=== PATIENT | female | born 1935 | race Caucasian/White ===

== ENCOUNTER 2022-04-04 22:53 | Emergency (ER) | payer MEDICARE, OTHER, SELFPAY ==
[2022-04-04 23:02] VITALS: BP 191/91; PULSE 65; RESP 16; TEMP 36.4; O2SAT 97; BMI 16.0
--- NOTE | 2022-04-04 23:03 | ED_ITS ---
HPI - Fall General Chief Complaint: General Medical Stated Complaint: fall Time Seen by Provider: 04/04/22 23:03 Source: patient and EMS Mode of arrival: EMS Limitations: altered mental status History of Present Illness HPI Narrative: Patient with history of dementia wandering outside lying on the side of the road living at the traffic EMS brought the patient to the ER no signs of injuries Related Data Allergies Allergy/AdvReac Type Severity Reaction Status Date / Time Penicillins [PENICILLINS] Allergy Mild RASH Unverified 11/24/19 15:08 Review of Systems Review of Systems: Yes Unobtainable due to mental status [facility] Social History Social History Advance Directives: No Advance Directives Information Provided: Yes Physical Exam Vital Signs: Vital Signs: Last Vital Signs Temp 98.7 F 04/05/22 01:40 Pulse 54 04/05/22 01:40 Resp 16 04/05/22 01:40 BP 119/62 04/05/22 01:40 Pulse Ox 97 04/05/22 01:40 O2 Del Method 04/05/22 01:40 BMI result Body Mass Index 16.0 Appearance: Alert. and awake No acute distress. Dementia Eyes: PERRLA, No Nystagmus ENT: Pharynx normal. Oral Mucosa moist Neck: Normal inspection. Neck supple. CVS: Normal heart rate and rhythm. Pulses normal. Respiratory: No respiratory distress. Equal air entry bilateral, no wheezing/rales/rhonchi Abdomen: Soft and nontender. Bowel sounds are present, no mass palpable, no CVA tenderness Skin: Skin warm and dry. Normal skin color. Normal skin turgor. Extremities: No lower extremity edema. No calf tenderness pelvis stable Neuro: Alert and awake dementia+ No motor deficit. No sensory deficit.No cerebellar signs , cranial nerves II-XII intact Medical Decision Making Medical Decision Making MDM Narrative: Patient dementia with wandering discussed with the family will be coming to take the patient home patient says social support at home and will be managed at home by the family patient labs were stable Lab Data [facility] Lab Attestation statement: I reviewed the patient's lab results. 04/04/22 23:28 04/04/22 23:28 Labs: Lab Results 01/27/23 01/27/23 01/27/23 Range/Units 23:28 23:28 23:28 WBC 7.5 (4.8-10.8) X10*3/uL RBC 4.89 (4.20-5.50) X10*6/uL Hgb 15.2 (12.0-16.0) g/dl Hct 44.8 (37.0-47.0) % MCV 91.6 (80.0-98.0) fL MCH 31.1 (27.0-33.0) pg MCHC 33.9 (31.0-35.0) g/dl RDW 14.4 (11.0-16.0) % Plt Count 156 L (160-400) X10*3/uL MPV 12.7 H (9.4-12.3) fL Immature Gran % (Auto) Cancelled Neut % (Auto) Cancelled Lymph % (Auto) Cancelled [place] % (Auto) Cancelled Eos % (Auto) Cancelled Baso % (Auto) Cancelled Lymph # (Auto) Cancelled [place] # (Auto) Cancelled Eos # (Auto) Cancelled Baso # (Auto) Cancelled Abs Immat Gran (auto) Cancelled Absolute Neuts (auto) Cancelled Absolute Nucleated RBC 0.000 (0.0-0.012) X10*3/uL Nucleated RBC % (auto) 0.0 (0.0-0.2) /100WBC Neutrophils % (Manual) 73 (45-73) % Band Neutrophils % 0 L (3-5) % Lymphocytes % (Manual) 24 (20-40) % Monocytes % (Manual) 3 (2-11) % Abs Neuts (Manual) 5.5 (2.0-8.3) X10*3/uL Lymphocytes # (Manual) 1.8 (1.2-4.9) X10*3/uL Monocytes # (Manual) 0.2 (0.1-1.2) X10*3/uL [place] Cells PRESENT Toxic Vacuolation PRESENT Platelet Estimate SLIGHTLY DECREASED (NORMAL) Plt Morphology Comment NORMAL RBC Morphology NOTED Ovalocytes 1+ (5-14) /OIF [place] Cells 1+ (0-2) /OIF Sodium 140 (135-145) mmol/L Potassium 3.2 L (3.3-5.1) mmol/L Chloride 101 (96-108) mmol/L Carbon Dioxide 28 (22-29) mmol/L Anion Gap 14 (12-20) BUN 21 H (9-16) mg/dL Creatinine 0.95 (0.5-1.4) mg/dL Estim Creat Clear Calc 30.7 Estimated GFR 56 Random Glucose 118 H (60-115) mg/dL Calcium 9.5 (8.4-10.2) mg/dL Magnesium 1.8 (1.6-2.6) mg/dL Total Bilirubin 1.1 H (0.0-1.0) mg/dL AST 12 (5-31) U/L ALT < 6 (0-31) U/L Alkaline Phosphatase 60 (39-117) U/L Troponin I High Sens 10.9 (<3.5-17.0) ng/L Total Protein 6.3 L (6.5-8.0) g/dL Albumin 3.9 (3.5-5.0) g/dL Independent Interpretation I performed an independent interpretation of an: EKG Interpretation: Cell bradycardia heart rate 58 beats per minute LVH and left axis deviation no acute ST changes no acute ischemia Discharge Plan Discharge Clinical Impression: Dementia Patient Disposition: Home, Self-Care Instructions: Dementia (ED) Additional Instructions: Care of dementia patient is advised follow with PCP
--- NOTE | 2022-04-04 23:14 | ECG_ITS ---
Test Reason : AMS Blood Pressure : / mmHG Vent. Rate : 058 BPM Atrial Rate : 058 BPM P-R Int : 136 ms QRS Dur : 082 ms QT Int : 466 ms P-R-T Axes : 057 -33 173 degrees QTc Int : 457 ms Sinus bradycardia Left axis deviation Left ventricular hypertrophy with repolarization abnormality ( R in aVL , [place] product ) Cannot rule out Septal infarct , age undetermined Abnormal ECG When compared with ECG of 07-MAY-2011 01:21, Significant changes have occurred Referred By: Tito Condon Electronically Signed By:ARIANNA ROMO
[2022-04-04 23:33] LABS: Red Cell Distribution Width 14.4 % (11.0-16.0)
[2022-04-04 23:46] LABS: Hematocrit 44.8 % (37.0-47.0); Hemoglobin 15.2 g/dl (12.0-16.0); Mean Corpuscular HGB Conc 33.9 g/dl (31.0-35.0); Mean Corpuscular Hemoglobin 31.1 pg (27.0-33.0); Mean Corpuscular Volume 91.6 fL (80.0-98.0); Mean Platelet Volume 12.7 fL (9.4-12.3); Platelet Count 156 X10*3/uL (160-400); Red Blood Count 4.89 X10*6/uL (4.20-5.50); WBC ABN SCTR FOR CBC 1; White Blood Count 7.5 X10*3/uL (4.8-10.8)
[2022-04-04 23:58] LABS: Alanine Aminotransferase < 6 U/L (0-31); Albumin Level 3.9 g/dL (3.5-5.0); Alkaline Phosphatase 60 U/L (39-117); Anion Gap 14 (12-20); Aspartate Amino Transferase 12 U/L (5-31); Bilirubin Total 1.1 mg/dL (0.0-1.0); Blood Urea Nitrogen 21 mg/dL (9-16); Burr Cells 1+ (0-2) /OIF; Calcium 9.5 mg/dL (8.4-10.2); Carbon Dioxide 28 mmol/L (22-29); Chloride 101 mmol/L (96-108); Creatinine Clr Calc Pharmacy 30.7; Estimated Glomerular Filt Rate 56; Glucose Random 118 mg/dL (60-115); Lymphocytes Absolute Manual 1.8 X10*3/uL (1.2-4.9); Lymphocytes Percent Manual 24 % (20-40); Magnesium 1.8 mg/dL (1.6-2.6); Monocytes Absolute Manual 0.2 X10*3/uL (0.1-1.2); Monocytes Percent Manual 3 % (2-11); Neutrophils Percent Manual 73 % (45-73); Ovalocytes 1+ (5-14) /OIF; Platelet Estimate SLIGHTLY DECREASED (NORMAL); Platelet Morphology Comment NORMAL; Potassium 3.2 mmol/L (3.3-5.1); RBC Morphology NOTED; Smudge Cells PRESENT; Sodium 140 mmol/L (135-145); Total Protein 6.3 g/dL (6.5-8.0); Toxic Vacuolation PRESENT
[2022-04-05] LABS: Troponin-I High Sensitivity 10.9 ng/L (<3.5-17.0)
[2022-04-05 00:32] LABS: Band Neutrophils Percent 0 % (3-5); Neutrophils Absolute Manual 5.5 X10*3/uL (2.0-8.3)
[2022-04-05 01:40] VITALS: BP 119/62; PULSE 54; RESP 16; TEMP 37.1; O2SAT 97
[2022-04-05 05:18] VITALS: BP 130/76; PULSE 61; RESP 16; O2SAT 97
== END 2022-04-05 05:21 | disposition home or self-care (01) ==
PROVIDERS: Emergency Provider Internal Medicine; PCP Internal Medicine
DX: F03.90 Unspecified dementia, unspecified severity, without behavioral disturbance, psychotic disturbance, mood disturbance, and anxiety (principal); F17.210 Nicotine dependence, cigarettes, uncomplicated
CPT/HCPCS: 36415; 80053; 83735; 84484; 85007; 85027; 93005; 99283; 99284

== ENCOUNTER 2022-04-09 05:01 | Inpatient (IN) | payer MEDICARE, OTHER, SELFPAY ==
--- NOTE | 2022-04-09 | ECG_ITS ---
Test Reason : med clearance Blood Pressure : / mmHG Vent. Rate : 064 BPM Atrial Rate : 064 BPM P-R Int : 124 ms QRS Dur : 084 ms QT Int : 452 ms P-R-T Axes : 056 -21 154 degrees QTc Int : 466 ms Sinus rhythm with Premature atrial complexes Left ventricular hypertrophy with repolarization abnormality ( [place] product ) Cannot rule out Septal infarct (cited on or before 04-APR-2022) Abnormal ECG When compared with ECG of 04-APR-2022 23:15, Premature atrial complexes are now Present Referred By: Tito Condon Electronically Signed By:Wily Dixon
--- NOTE | ~2022-04-09 | CT_ITS ---
EXAMINATION: CT HEAD WITHOUT CONTRAST CLINICAL INFORMATION: History of cerebrovascular accident. COMPARISON: No relevant prior imaging. TECHNIQUE: Contiguous axial imaging was performed from the skull base to vertex without intravenous administration of contrast. This CT examination was performed using dose optimization techniques as appropriate, variously including the following: *Automated exposure control *Adjustment of mA and/or kV according to patient size (this includes techniques or standardized protocols for targeted exams where dose is matched to indication/reason for exam; i.e. extremities or head) *Use of iterative reconstruction technique DLP: 677 mGy-cm FINDINGS: There are scattered nonspecific foci of hypoattenuation within the periventricular white matter. Nichole-white matter differentiation is otherwise preserved and there is no evidence of acute territorial infarct. There is no acute intracranial hemorrhage or abnormal extra-axial collection. No intracranial mass effect or midline shift. Lateral and third ventricles are normal. No hydrocephalus. The calvarium and skull base are intact. Mastoid air cells and middle ear cavities are well aerated. No active paranasal sinus disease. CT/CT head/brain wo IV con IMPRESSION: There are scattered chronic small vessel ischemic changes within the periventricular white matter. Otherwise unremarkable examination. No evidence of acute territorial infarct or hemorrhage.
[2022-04-09 05:10] VITALS: BP 160/79; RESP 17; TEMP 36.8; O2SAT 95; BMI 16.9
--- NOTE | 2022-04-09 05:26 | PC.NURSE ---
Patient calm and quiet, no behavior concerns, med rec completed/pending provider's approval, non mental health history, patient is legally blind, unsteady gait, high fall risk, care team consult ordered for AVH, will continue to monitor.
[2022-04-09 05:50] LABS: Basophils Percent Auto 0.3 % (0-2); Eosinophils Percent Auto 0.1 % (0-4); Hematocrit 44.3 % (37.0-47.0); Hemoglobin 15.1 g/dl (12.0-16.0); Imm Gran Abs Auto 0.02 X10*3/uL (0.00-0.03); Imm Gran Pct Auto 0.3 % (0.0-0.4); Lymphocytes Absolute Auto 1.1 X10*3/uL (1.2-4.9); Lymphocytes Percent Auto 14.3 % (20-40); MANUAL DIFF FLAG YES; Mean Corpuscular HGB Conc 34.1 g/dl (31.0-35.0); Mean Corpuscular Hemoglobin 31.1 pg (27.0-33.0); Mean Corpuscular Volume 91.3 fL (80.0-98.0); Mean Platelet Volume 12.6 fL (9.4-12.3); Monocytes Absolute Auto 0.6 X10*3/uL (0.1-1.2); Monocytes Percent Auto 7.6 % (2-11); Neutrophils Absolute Auto 6.2 x10*3/uL (2.0-8.3); Neutrophils Percent Auto 77.4 % (45-73); Platelet Count 166 X10*3/uL (160-400); Red Blood Count 4.85 X10*6/uL (4.20-5.50); Red Cell Distribution Width 14.4 % (11.0-16.0); WBC ABN SCTR 1
[2022-04-09 05:51] LABS: WBC ABN SCTR FOR CBC 1
[2022-04-09 05:53] VITALS: PULSE 92
--- NOTE | 2022-04-09 05:54 | ED.PSYCH ---
HPI - Psych General Chief Complaint: Psychiatric Symptoms Stated Complaint: SI Time Seen by Provider: 04/09/22 05:52 Source: patient Mode of arrival: ambulatory Limitations: no limitations History of Present Illness HPI Narrative: Patient with history of dementia was seen here on 04/04 when she was on the side of the road waving to the traffic comes here as family noticed patient is hallucinating patient denies patient calm and cooperative upset that she is here Related Data Home Medications Medication Instructions Recorded Confirmed albuterol sulfate 90 mcg/actuation 2 puff inhalation Q6H PRN wheezing 04/09/22 04/09/22 aerosol inhaler atenolol 25 mg tablet 2 tab PO DAILY 04/09/22 04/09/22 clonidine HCl 0.1 mg tablet 1 tab PO BEDTIME 04/09/22 04/09/22 clonidine HCl 0.1 mg tablet 1 tab PO BEDTIME 04/09/22 04/09/22 lisinopril 40 mg tablet 1 tab PO BID 04/09/22 04/09/22 simvastatin 20 mg tablet 1 tab PO BEDTIME 04/09/22 04/09/22 Allergies Allergy/AdvReac Type Severity Reaction Status Date / Time Penicillins [PENICILLINS] Allergy Mild RASH Verified 04/09/22 05:54 Review of Systems Review of Systems: Yes all other systems are reviewed and are negative [facility] Social History Social History Smoked in Last 30 Days: Yes Use of substances other than those prescribed or required for medical reasons: No Advance Directives: No Advance Directives Information Provided: No Physical Exam Vital Signs: Vital Signs: Last Vital Signs Temp 98.2 F 04/09/22 05:10 Pulse 92 04/09/22 05:53 Resp 17 04/09/22 05:10 BP 160/79 H 04/09/22 05:10 Pulse Ox 95 04/09/22 05:10 O2 Del Method 04/09/22 05:10 BMI result Body Mass Index 16.9 Appearance: Alert. Oriented X3. No acute distress. Eyes: PERRLA, No Nystagmus ENT: Pharynx normal. Oral Mucosa moist Neck: Normal inspection. Neck supple. CVS: Normal heart rate and rhythm. Pulses normal. Respiratory: No respiratory distress. Equal air entry bilateral, no wheezing/rales/rhonchi Abdomen: Soft and nontender. Bowel sounds are present, no mass palpable, no CVA tenderness Skin: Skin warm and dry. Normal skin color. Normal skin turgor. Extremities: No lower extremity edema. No calf tenderness psych mood stable denies any hallucination delusion Neuro: Oriented X 3. No motor deficit. No sensory deficit.No cerebellar signs , cranial nerves II-XII intact Medical Decision Making Medical Decision Making MDM Narrative: Patient with dementia with hallucinations at home will consult care team Lab Data [facility] Lab Attestation statement: I reviewed the patient's lab results. 04/09/22 05:44 04/09/22 05:44 Labs: Lab Results 04/09/22 04/09/22 04/09/22 Range/Units 05:32 05:44 05:44 WBC 8.0 (4.8-10.8) X10*3/uL RBC 4.85 (4.20-5.50) X10*6/uL Hgb 15.1 (12.0-16.0) g/dl Hct 44.3 (37.0-47.0) % MCV 91.3 (80.0-98.0) fL MCH 31.1 (27.0-33.0) pg MCHC 34.1 (31.0-35.0) g/dl RDW 14.4 (11.0-16.0) % Plt Count 166 (160-400) X10*3/uL MPV 12.6 H (9.4-12.3) fL Immature Gran % (Auto) 0.3 (0.0-0.4) % Neut % (Auto) 77.4 H (45-73) % Lymph % (Auto) 14.3 L (20-40) % [place] % (Auto) 7.6 (2-11) % Eos % (Auto) 0.1 (0-4) % Baso % (Auto) 0.3 (0-2) % Lymph # (Auto) 1.1 L (1.2-4.9) X10*3/uL [place] # (Auto) 0.6 (0.1-1.2) X10*3/uL Eos # (Auto) 0.0 (0.0-0.4) X10*3/uL Baso # (Auto) 0.0 (0.0-0.2) X10*3/uL Abs Immat Gran (auto) 0.02 (0.00-0.03) X10*3/uL Absolute Neuts (auto) 6.2 (2.0-8.3) x10*3/uL Absolute Nucleated RBC 0.000 (0.0-0.012) X10*3/uL Nucleated RBC % (auto) 0.0 (0.0-0.2) /100WBC Neutrophils % (Manual) 84 H (45-73) % Band Neutrophils % 1 L (3-5) % Lymphocytes % (Manual) 12 L (20-40) % Monocytes % (Manual) 3 (2-11) % Abs Neuts (Manual) 6.8 (2.0-8.3) X10*3/uL Lymphocytes # (Manual) 1.0 L (1.2-4.9) X10*3/uL Monocytes # (Manual) 0.2 (0.1-1.2) X10*3/uL [place] Cells PRESENT Toxic Vacuolation PRESENT Platelet Estimate SLIGHTLY DECREASED (NORMAL) Large Platelets PRESENT Plt Morphology Comment NORMAL RBC Morphology NOTED Macrocytosis 1+ (5-14) /OIF Ovalocytes 1+ (5-14) /OIF [place] Cells 1+ (0-2) /OIF Sodium 142 (135-145) mmol/L Potassium 3.5 (3.3-5.1) mmol/L Chloride 101 (96-108) mmol/L Carbon Dioxide 27 (22-29) mmol/L Anion Gap 18 (12-20) BUN 16 (9-16) mg/dL Creatinine 0.88 (0.5-1.4) mg/dL Estim Creat Clear Calc 35.1 Estimated GFR > 60 Random Glucose 172 H (60-115) mg/dL Calcium 9.7 (8.4-10.2) mg/dL Total Bilirubin 1.0 (0.0-1.0) mg/dL AST 14 (5-31) U/L ALT 6 (0-31) U/L Alkaline Phosphatase 62 (39-117) U/L Total Protein 6.7 (6.5-8.0) g/dL Albumin 4.1 (3.5-5.0) g/dL COVID-19 (GILLIAN) Negative (Negative) COVID-19 Clin Com See Note Discharge Plan 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
[2022-04-09 06:01] LABS: COVID-19 Test Negative (Negative); IDNOW Serial# 6674DD1D
--- NOTE | 2022-04-09 06:10 | PC.NURSE ---
this rn assumed care of pt at 0600. pt brought out from pod due to mobility status and age. pt placed on 1:1 pt provided with drink. awaiting pt to provide urine sample at this time
[2022-04-09 06:16] LABS: Band Neutrophils Percent 1 % (3-5); Lymphocytes Percent Manual 12 % (20-40); Monocytes Absolute Manual 0.2 X10*3/uL (0.1-1.2); Monocytes Percent Manual 3 % (2-11); Neutrophils Absolute Manual 6.8 X10*3/uL (2.0-8.3); Neutrophils Percent Manual 84 % (45-73)
[2022-04-09 06:17] LABS: Burr Cells 1+ (0-2) /OIF; Large Platelet PRESENT; Macrocytosis 1+ (5-14) /OIF; Ovalocytes 1+ (5-14) /OIF; Platelet Estimate SLIGHTLY DECREASED (NORMAL); Platelet Morphology Comment NORMAL; RBC Morphology NOTED; Smudge Cells PRESENT; Toxic Vacuolation PRESENT
[2022-04-09 06:27] LABS: Alanine Aminotransferase 6 U/L (0-31); Albumin Level 4.1 g/dL (3.5-5.0); Alkaline Phosphatase 62 U/L (39-117); Anion Gap 18 (12-20); Aspartate Amino Transferase 14 U/L (5-31); Blood Urea Nitrogen 16 mg/dL (9-16); Calcium 9.7 mg/dL (8.4-10.2); Carbon Dioxide 27 mmol/L (22-29); Chloride 101 mmol/L (96-108); Creatinine Clr Calc Pharmacy 35.1; Estimated Glomerular Filt Rate > 60; Glucose Random 172 mg/dL (60-115); Potassium 3.5 mmol/L (3.3-5.1); Sodium 142 mmol/L (135-145); Total Protein 6.7 g/dL (6.5-8.0)
[2022-04-09 07:22] VITALS: BP 160/78; PULSE 68; TEMP 36.7; O2SAT 94
--- NOTE | 2022-04-09 07:24 | PC.NURSE ---
Pt alert and oriented, respirations even and unlabored. Stating she is much happier now that she is here and not at home .
[2022-04-09 08:25] LABS: Appearance Urine Clear; Color Urine Yellow; Glucose Urine UA Negative (Negative); Leukocyte Esterase Urine Trace (Negative); Nitrite Urine Negative (Negative); UMIC TRIGGER UA YES; Urine Blood Negative (Negative); Urine Ketones Trace mg/dL (Negative); Urine Protein Negative (Neg-Trace)
[2022-04-09 08:30] LABS: Bacteria Urine None Seen (None Seen); Hyaline Casts Urine 0-2 /LPF (0-2); RBC Urine 0-2 /HPF (0-2); Squamous Epithelial Cell Urine 0-2 /HPF (0-2); WBC Urine 0-5 /HPF (0-5)
--- NOTE | 2022-04-09 08:32 | PC.NURSE ---
Daughter Karo everett [phone]
[2022-04-09 08:42] LABS: Amphetamine Screen Urine Not Detected (Not Detect); Barbiturates, Urine Not Detected (Not Detect); Benzodiazepines Screen Urine Not Detected (Not Detect); Cannabinoid Screen Urine Not Detected (Not Detect); Cocaine Screen Urine Not Detected (Not Detect); Fentanyl, urine Not Detected (Not Detect); Opiate Screen Urine Not Detected (Not Detect); Phencyclidine Screen Urine Not Detected (Not Detect)
--- NOTE | 2022-04-09 11:35 | MHC.CARE ---
Patient is an inpt bed search
--- NOTE | 2022-04-09 12:46 | PHA.MEDREC ---
Pharmacy Consult ? Medication Reconciliation Pharmacy has completed the medication reconciliation. Spoke to araceli's daughter Karo over the phone ([phone]), she noted that she should be on lorazepam but hasn't started it yet (Rx was filled recently for 1mg TID PRN), and went over medication list with me.
[2022-04-09 13:53] LABS: Troponin-I High Sensitivity 18.4 ng/L (<3.5-17.0)
--- NOTE | 2022-04-09 14:23 | MHC.CARE ---
Called insurance/ [employer] medicare advantage. approved for inpt, awaiting call back from [facility] [phone] [id number]. attempted to outreach for the auth, no answer. will try again.
[2022-04-09 14:37] VITALS: BP 137/70; PULSE 60; TEMP 36.7; O2SAT 94
--- NOTE | 2022-04-09 15:20 | MHC.EDTECH ---
PROTECTIVE SERVICES WORKER LEAVES CARD FOR CALL BACK BY CARE TEAM [facility] [phone]
--- NOTE | 2022-04-09 15:40 | PC.NURSE ---
Pt accepted [facility], awaiting bed assignment.
--- NOTE | 2022-04-09 18:19 | PC.NURSE ---
Report given to S1
[2022-04-09 22:13] VITALS: BP 130/65; PULSE 63; RESP 17; TEMP 37.2; O2SAT 93
--- NOTE | 2022-04-09 23:45 | PC.NURSE ---
This RN notified that pt has been pending admission for 8+ hours despite the eJssie RN having given reports prior to 1900. This RN contacting S1 for clarity. This RN speaking to Lisa who stated that per Dr Bolden, the pt is not medically cleared. Dr Bolden expressing concern over an elevated Troponin and a suspect EKG despite being medically cleared by ER MD. This RN discussing with nursing mold shop supervisor as the pt was already accepted to the unit and report had already been given several hours ago. This RN discussing case with Yulia ER PA. Plan to repeat Troponin and continue to monitor. Lisa, S1 RN calling again. Per Lisa, per Dr Bolden, pt needs to be completely reevaluated with an explanation for why her Troponin was elevated and why her EKG was abnormal. This RN making nursing mold shop supervisor and primary RN Katie aware. Plan to keep pt in the ER overnight as Dr Bolden is refusing to accept this pt until she is reevaluated.
[2022-04-10 00:17] LABS: Troponin-I High Sensitivity 19.3 ng/L (<3.5-17.0)
[2022-04-10 06:00] VITALS: BP 168/65; PULSE 59; RESP 13; TEMP 36.7; O2SAT 95
[2022-04-10 07:45] VITALS: BP 172/88; PULSE 74; RESP 14; O2SAT 93
[2022-04-10 14:00] VITALS: BP 151/76; PULSE 62; RESP 20; TEMP 36.4; O2SAT 94
[2022-04-10] MEDS: hydrOXYzine HCL 25 MG TABLET PO (15:35)
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
--- NOTE | 2022-04-10 18:32 | PC.NURSE ---
Attempted to notify daughter, Karo Caal of admission. No answer. Left message to call for update.
[2022-04-11 07:30] VITALS: BP 144/84; PULSE 84; RESP 20; TEMP 36.6; O2SAT 94
[2022-04-11 07:59] LABS: Hematocrit 47.7 % (37.0-47.0); Hemoglobin 15.9 g/dl (12.0-16.0); Mean Corpuscular HGB Conc 33.3 g/dl (31.0-35.0); Mean Corpuscular Hemoglobin 31.1 pg (27.0-33.0); Mean Corpuscular Volume 93.2 fL (80.0-98.0); PLT CLUMP 1; Red Blood Count 5.12 X10*6/uL (4.20-5.50); Red Cell Distribution Width 14.5 % (11.0-16.0); WBC ABN SCTR FOR CBC 1
[2022-04-11 08:18] LABS: Alanine Aminotransferase 6 U/L (0-31); Albumin Level 4.4 g/dL (3.5-5.0); Alkaline Phosphatase 65 U/L (39-117); Anion Gap 19 (12-20); Aspartate Amino Transferase 15 U/L (5-31); Bilirubin Total 1.1 mg/dL (0.0-1.0); Blood Urea Nitrogen 17 mg/dL (9-16); Calcium 10.2 mg/dL (8.4-10.2); Carbon Dioxide 27 mmol/L (22-29); Chloride 99 mmol/L (96-108); Creatinine Clr Calc Pharmacy 39.1; Estimated Average Glucose 117 mg/dL; Estimated Glomerular Filt Rate > 60; Glucose Fasting 96 mg/dL (60-99); Hemoglobin A1c % 5.7 %; Potassium 3.5 mmol/L (3.3-5.1); Sodium 141 mmol/L (135-145); Total Protein 7.2 g/dL (6.5-8.0)
[2022-04-11 08:26] LABS: Alanine Aminotransferase 6 U/L (0-31); Albumin Level 4.4 g/dL (3.5-5.0); Alkaline Phosphatase 64 U/L (39-117); Anion Gap 17 (12-20); Aspartate Amino Transferase 15 U/L (5-31); Bilirubin Direct 0.3 mg/dL (0.0-0.5); Bilirubin Total 1.1 mg/dL (0.0-1.0); Blood Urea Nitrogen 18 mg/dL (9-16); Calcium 10.1 mg/dL (8.4-10.2); Carbon Dioxide 27 mmol/L (22-29); Chloride 100 mmol/L (96-108); Cholesterol 155 mg/dL; Creatinine Clr Calc Pharmacy 38.6; Estimated Glomerular Filt Rate > 60; Glucose Random 96 mg/dL (60-115); HDL Cholesterol 53 mg/dL; LDL Cholesterol Calculated 79 mg/dl; Potassium 3.5 mmol/L (3.3-5.1); Sodium 140 mmol/L (135-145); Total Protein 7.1 g/dL (6.5-8.0); Triglycerides 118 mg/dL
[2022-04-11 08:40] LABS: Thyroid Stimulating Hormone 3.07 uIU/mL (0.32-4.0)
[2022-04-11 08:50] LABS: Atypical Lymphs Percent Manual 1 % (0-6); Band Neutrophils Percent 1 % (3-5); Lymphocytes Percent Manual 23 % (20-40); Monocytes Percent Manual 3 % (2-11); Neutrophils Percent Manual 72 % (45-73)
[2022-04-11 08:51] LABS: RBC Morphology NORMAL
[2022-04-11 08:52] LABS: Platelet Estimate SLIGHTLY DECREASED (NORMAL); Platelet Morphology Comment NORM
[2022-04-11 08:53] LABS: Atypical Lymph Absolute Manual 0.1 x10*3/uL; Lymphocytes Absolute Manual 2.5 X10*3/uL (1.2-4.9); Mean Platelet Volume 13.5 fL (9.4-12.3); Monocytes Absolute Manual 0.3 X10*3/uL (0.1-1.2); Neutrophils Absolute Manual 7.8 X10*3/uL (2.0-8.3); Platelet Count 146 X10*3/uL (160-400); White Blood Count 10.7 X10*3/uL (4.8-10.8)
[2022-04-11] MEDS: lisinopriL 40 MG TABLET PO ×2 (10:02→20:29)
[2022-04-11] MEDS: atenoloL 50 MG TABLET PO (10:02)
[2022-04-11] MEDS: HaloperidoL 0.5 MG TABLET PO ×2 (10:02→20:29)
[2022-04-11] MEDS: amLODIPine Besylate 5 MG TABLET PO (10:02)
--- NOTE | 2022-04-11 11:02 | P.PNPSI_ITS ---
Subjective Subjective Date of Service: 04/11/22 Reason For Visit: Hallucinations Subjective Notes: Conditional Voluntary and 3 Day Interim History: The nursing staff reported the patient was doing very well until 03:00 o'clock in the afternoon that she become very disorganized she she had visual hallucinations stating there people to getting her, she refused vital signs and medications. Next morning, the patient was totally okay, denies hallucinations or delusions. On interview around 11:00, the patient was very paranoid, she refused to elaborate she stated that staff is on CT hoods with someone else and she is scared of her life. Of we did blood work and so far came back within normal limits. Waiting for UA and CT scan results Mental Status Exam Mental Status Exam Patient Appearance: Appropriate Patient Orientation: Person and Situation Level of Consciousness: Awake and Appropriate Patient Behavior: Guarded and Passive Mood Description: Withdrawn Affect Description: Labile Patient Cognition Impaired: Yes Ability to Follow Directions: Fair Speech Pattern: Clear Hallucinations: Auditory and Visual Delusions: Paranoid Ideation Thought Process: Illogical, Distracted, Evasive and Slowed Thinking Thought Content: positive for Thought Blocking and positive for Tangential Judgement: Fair Diagnostics Vital Signs (24Hr): Vital Signs - 24 hr 04/10/22 14:00 04/11/22 07:30 Temperature 97.6 F 97.8 F Pulse Rate 62 84 Respiratory Rate 20 20 Blood Pressure 151/76 H 144/84 H Pulse Oximetry 94 94 Oxygen Delivery Method Room Air Room Air BMI result Body Mass Index 16.9 Labs 04/11/22 07:47 04/11/22 07:47 Labs: Laboratory Results - last 48 hr 04/09/22 04/09/22 04/11/22 13:22 23:52 07:47 WBC RBC Hgb Hct MCV MCH MCHC RDW Plt Count MPV Immature Gran % (Auto) Neut % (Auto) Lymph % (Auto) [place] % (Auto) Eos % (Auto) Baso % (Auto) Lymph # (Auto) [place] # (Auto) Eos # (Auto) Baso # (Auto) Abs Immat Gran (auto) Absolute Neuts (auto) Absolute Nucleated RBC Nucleated RBC % (auto) Neutrophils % (Manual) Band Neutrophils % Lymphocytes % (Manual) Atypical Lymphs % (Man) Monocytes % (Manual) Abs Neuts (Manual) Lymphocytes # (Manual) Atyp Lymphs # (Manual) Monocytes # (Manual) Platelet Estimate Plt Morphology Comment RBC Morphology Sodium 141 Potassium 3.5 Chloride 99 Carbon Dioxide 27 Anion Gap 19 BUN 17 H Creatinine 0.79 Estim Creat Clear Calc 39.1 Estimated GFR > 60 Random Glucose Fasting Glucose 96 Estimat Average Glucose Hemoglobin A1c % Calcium 10.2 Total Bilirubin 1.1 H Direct Bilirubin AST 15 ALT 6 Alkaline Phosphatase 65 Troponin I High Sens 18.4 H D 19.3 H Total Protein 7.2 Albumin 4.4 Triglycerides Cholesterol LDL Cholesterol, Calc HDL Cholesterol TSH 04/11/22 04/11/22 04/11/22 07:47 07:47 07:47 WBC 10.7 RBC 5.12 Hgb 15.9 Hct 47.7 H MCV 93.2 MCH 31.1 MCHC 33.3 RDW 14.5 Plt Count 146 L MPV 13.5 H Immature Gran % (Auto) Cancelled Neut % (Auto) Cancelled Lymph % (Auto) Cancelled [place] % (Auto) Cancelled Eos % (Auto) Cancelled Baso % (Auto) Cancelled Lymph # (Auto) Cancelled [place] # (Auto) Cancelled Eos # (Auto) Cancelled Baso # (Auto) Cancelled Abs Immat Gran (auto) Cancelled Absolute Neuts (auto) Cancelled Absolute Nucleated RBC 0.000 Nucleated RBC % (auto) 0.0 Neutrophils % (Manual) 72 Band Neutrophils % 1 L Lymphocytes % (Manual) 23 Atypical Lymphs % (Man) 1 Monocytes % (Manual) 3 Abs Neuts (Manual) 7.8 Lymphocytes # (Manual) 2.5 Atyp Lymphs # (Manual) 0.1 Monocytes # (Manual) 0.3 Platelet Estimate SLIGHTLY DECREASED Plt Morphology Comment NORM RBC Morphology NORMAL Sodium 140 Potassium 3.5 Chloride 100 Carbon Dioxide 27 Anion Gap 17 BUN 18 H Creatinine 0.80 Estim Creat Clear Calc 38.6 Estimated GFR > 60 Random Glucose 96 Fasting Glucose Estimat Average Glucose 117 Hemoglobin A1c % 5.7 Calcium 10.1 Total Bilirubin 1.1 H Direct Bilirubin 0.3 AST 15 ALT 6 Alkaline Phosphatase 64 Troponin I High Sens Total Protein 7.1 Albumin 4.4 Triglycerides 118 Cholesterol 155 LDL Cholesterol, Calc 79 HDL Cholesterol 53 TSH 3.07 Medications Medications Current Medications Acetaminophen (Acetaminophen 325 Mg Tablet) 650 mg PO Q6H PRN PRN Reason: Headache/Pain Mild Scale (1-3) Al Hydroxide/Mg Hydroxide (Magnesium Hydrox/Alum Hydrox 30 Ml Oral.Susp) 30 ml PO Q6H PRN PRN Reason: Heartburn/Nausea Albuterol Sulfate (Albuterol Sulfate 90 Mcg 8 Gm Inhaler) 2 puff INHALE Q6H PRN PRN Reason: wheezing Amlodipine Besylate (Amlodipine Besylate 5 Mg Tablet) 5 mg PO DAILY [facility]; Protocol Last Admin: 04/11/22 10:02 Dose: 5 mg Atenolol (Atenolol 50 Mg Tablet) 50 mg PO DAILY [facility]; Protocol Last Admin: 04/11/22 10:02 Dose: 50 mg Atorvastatin Calcium (Atorvastatin Calcium 10 Mg Tablet) 10 mg PO BEDTIME [facility] Last Admin: 04/10/22 21:05 Dose: Not Given Clonidine HCl (Clonidine Hcl 0.1 Mg Tablet) 0.1 mg PO BEDTIME [facility]; Protocol Last Admin: 04/10/22 21:05 Dose: Not Given Haloperidol (Haloperidol 0.5 Mg Tablet) 0.5 mg PO BID [facility] Last Admin: 04/11/22 10:02 Dose: 0.5 mg Lisinopril (Lisinopril 40 Mg Tablet) 40 mg PO BID [facility]; Protocol Last Admin: 04/11/22 10:02 Dose: 40 mg Lorazepam (Lorazepam 0.5 Mg Tablet) 0.5 mg PO Q8H PRN PRN Reason: Anxiety Magnesium Hydroxide (Milk Of Magnesia 30 Ml Oral.Susp) 30 ml PO DAILY PRN PRN Reason: Constipation Pharmacy Consult (Consult Rx Perform Med Rec) 1 each MISCELLANE ONCE PRN PRN Reason: Consult order Trazodone HCl (Trazodone Hcl 50 Mg Tablet) 50 mg PO BEDTIME MRX1 PRN PRN Reason: Insomnia Allergies Allergies Allergy/AdvReac Type Severity Reaction Status Date / Time Penicillins [PENICILLINS] Allergy Mild RASH Verified 04/09/22 05:54 Assessment & Plan Assessment & Plan (1) Dementia with psychotic disturbance: Status: Acute Code(s): F03.92 - Unspecified dementia, unspecified severity, with psychotic disturbance (2) Delirium: Status: Acute Code(s): R41.0 - Disorientation, unspecified Plan The patient is an elderly female with no prior psychiatric history, admitted for auditory and visual hallucinations in the context of a recent UTI. She has self-harm with a knife the night before of the admission to the [facility]. She complains of paranoia, visual hallucinations of people stealing her belongings and disorganized behavior. Plan 1. Gather collateral information. 2. Start haloperidol 0.5 p.o. b.i.d. to target psychosis on admission. I increase Haldol to 0.5 p.o. b.i.d. and 1 mg p.o. q.h.s.. We will add a p.r.n. of Haldol 2 mg p.o. b.i.d. p.r.n. psychosis.. 3. Continue lorazepam 0.5 mg p.o. b.i.d. p.r.n. anxiety. 4. Continue medical workout. 5. CT scan head without contrast for April 11 . 6. Repeat UA, basic metabolic panel, TSH and other regular blood work April 11. Reason for contiued inpatient stay Substantial Risk for: inability to function, rapid decompensation and med/psych decompensation Time Spent With Patient Time: Total time managing care of this patient today __20__ minutes.
[2022-04-11] MEDS: Acetaminophen 325 MG TABLET 650 MG PO ×2 (14:35→20:35)
[2022-04-11 14:55] VITALS: BMI 16.9
--- NOTE | 2022-04-11 15:05 | MHC.CLN ---
NUTRITION PATIENT REPORTS THAT EATS ONLY SMALL AMOUNTS OF FOOD. WOULD LIKE ENSURE. ADDING BID TO PROVIDE ADDITIONAL 700 KCALS, 40 G PROTEIN. NUTRITION DX MODERATE MALNUTRITION IN THE CONTEXT OF CHRONIC ILLNESS. SEE CLINICAL NUTRITION ASSESSMENT 04/11/22.
[2022-04-11] MEDS: LORazepam 0.5 MG TABLET PO (17:03)
[2022-04-11 18:00] VITALS: BP 166/77; PULSE 58; RESP 17; TEMP 35.8; O2SAT 95
[2022-04-11] MEDS: HaloperidoL 1 MG TABLET PO (20:29)
[2022-04-11] MEDS: cloNIDine HCL 0.1 MG TABLET PO (20:29)
[2022-04-11] MEDS: Atorvastatin Calcium 10 MG TABLET PO (20:29)
[2022-04-12] MEDS: amLODIPine Besylate 5 MG TABLET PO (10:02)
[2022-04-12] MEDS: lisinopriL 40 MG TABLET PO ×2 (10:02→20:54)
[2022-04-12] MEDS: atenoloL 50 MG TABLET PO (10:02)
[2022-04-12] MEDS: HaloperidoL 0.5 MG TABLET PO ×2 (10:03→20:54)
[2022-04-12 10:09] VITALS: BP 136/63; PULSE 69; RESP 18; TEMP 36.4; O2SAT 97
--- NOTE | 2022-04-12 11:49 | HO.PSYCHPN ---
Subjective Subjective Date of Service: 04/12/22 Reason For Visit: Hallucinations Interim History: calm, cooperative, sleeping supine in bed, rousable to voice. states, i am very glad to see you. does not explain why that might be. reports getting good sleep. explains need to recheck UA. pt states she has very good reasons she did what she did and she is not going to tell anyone what they are. per staff, cut wrists [employer]. paranoid. Mental Status Exam Mental Status Exam Patient Appearance: Appropriate Patient Orientation: Person and Situation Level of Consciousness: Awake and Appropriate Patient Behavior: Guarded and Passive Mood Description: Withdrawn Affect Description: Labile Patient Cognition Impaired: Yes Ability to Follow Directions: Fair Speech Pattern: Clear Hallucinations: Auditory and Visual Delusions: Paranoid Ideation Thought Process: Illogical, Distracted, Evasive and Slowed Thinking Thought Content: positive for Thought Blocking and positive for Tangential Judgement: Fair Diagnostics Vital Signs (24Hr): Vital Signs - 24 hr 04/11/22 18:00 04/12/22 10:09 Temperature 96.4 F L 97.6 F Pulse Rate 58 69 Respiratory Rate 17 18 Blood Pressure 166/77 H 136/63 Pulse Oximetry 95 97 Oxygen Delivery Method Room Air Room Air BMI result Body Mass Index 16.9 Labs 04/11/22 07:47 04/11/22 07:47 Labs: Laboratory Results - last 48 hr 04/11/22 04/11/22 04/11/22 07:47 07:47 07:47 WBC 10.7 RBC 5.12 Hgb 15.9 Hct 47.7 H MCV 93.2 MCH 31.1 MCHC 33.3 RDW 14.5 Plt Count 146 L MPV 13.5 H Immature Gran % (Auto) Cancelled Neut % (Auto) Cancelled Lymph % (Auto) Cancelled [place] % (Auto) Cancelled Eos % (Auto) Cancelled Baso % (Auto) Cancelled Lymph # (Auto) Cancelled [place] # (Auto) Cancelled Eos # (Auto) Cancelled Baso # (Auto) Cancelled Abs Immat Gran (auto) Cancelled Absolute Neuts (auto) Cancelled Absolute Nucleated RBC 0.000 Nucleated RBC % (auto) 0.0 Neutrophils % (Manual) 72 Band Neutrophils % 1 L Lymphocytes % (Manual) 23 Atypical Lymphs % (Man) 1 Monocytes % (Manual) 3 Abs Neuts (Manual) 7.8 Lymphocytes # (Manual) 2.5 Atyp Lymphs # (Manual) 0.1 Monocytes # (Manual) 0.3 Platelet Estimate SLIGHTLY DECREASED Plt Morphology Comment NORM RBC Morphology NORMAL Sodium 141 140 Potassium 3.5 3.5 Chloride 99 100 Carbon Dioxide 27 27 Anion Gap 19 17 BUN 17 H 18 H Creatinine 0.79 0.80 Estim Creat Clear Calc 39.1 38.6 Estimated GFR > 60 > 60 Random Glucose 96 Fasting Glucose 96 Estimat Average Glucose Hemoglobin A1c % Calcium 10.2 10.1 Total Bilirubin 1.1 H 1.1 H Direct Bilirubin 0.3 AST 15 15 ALT 6 6 Alkaline Phosphatase 65 64 Total Protein 7.2 7.1 Albumin 4.4 4.4 Triglycerides 118 Cholesterol 155 LDL Cholesterol, Calc 79 HDL Cholesterol 53 TSH 3.07 04/11/22 07:47 WBC RBC Hgb Hct MCV MCH MCHC RDW Plt Count MPV Immature Gran % (Auto) Neut % (Auto) Lymph % (Auto) [place] % (Auto) Eos % (Auto) Baso % (Auto) Lymph # (Auto) [place] # (Auto) Eos # (Auto) Baso # (Auto) Abs Immat Gran (auto) Absolute Neuts (auto) Absolute Nucleated RBC Nucleated RBC % (auto) Neutrophils % (Manual) Band Neutrophils % Lymphocytes % (Manual) Atypical Lymphs % (Man) Monocytes % (Manual) Abs Neuts (Manual) Lymphocytes # (Manual) Atyp Lymphs # (Manual) Monocytes # (Manual) Platelet Estimate Plt Morphology Comment RBC Morphology Sodium Potassium Chloride Carbon Dioxide Anion Gap BUN Creatinine Estim Creat Clear Calc Estimated GFR Random Glucose Fasting Glucose Estimat Average Glucose 117 Hemoglobin A1c % 5.7 Calcium Total Bilirubin Direct Bilirubin AST ALT Alkaline Phosphatase Total Protein Albumin Triglycerides Cholesterol LDL Cholesterol, Calc HDL Cholesterol TSH Imaging Radiology Impressions: ITS Impressions Head CT 04/11/22 10:17 IMPRESSION: There are scattered chronic small vessel ischemic changes within the periventricular white matter. Otherwise unremarkable examination. No evidence of acute territorial infarct or hemorrhage. Medications Medications Current Medications Acetaminophen (Acetaminophen 325 Mg Tablet) 650 mg PO Q6H PRN PRN Reason: Headache/Pain Mild Scale (1-3) Last Admin: 04/11/22 20:35 Dose: 650 mg Al Hydroxide/Mg Hydroxide (Magnesium Hydrox/Alum Hydrox 30 Ml Oral.Susp) 30 ml PO Q6H PRN PRN Reason: Heartburn/Nausea Albuterol Sulfate (Albuterol Sulfate 90 Mcg 8 Gm Inhaler) 2 puff INHALE Q6H PRN PRN Reason: wheezing Amlodipine Besylate (Amlodipine Besylate 5 Mg Tablet) 5 mg PO DAILY [facility]; Protocol Last Admin: 04/12/22 10:02 Dose: 5 mg Atenolol (Atenolol 50 Mg Tablet) 50 mg PO DAILY [facility]; Protocol Last Admin: 04/12/22 10:02 Dose: 50 mg Atorvastatin Calcium (Atorvastatin Calcium 10 Mg Tablet) 10 mg PO BEDTIME [facility] Last Admin: 04/11/22 20:29 Dose: 10 mg Clonidine HCl (Clonidine Hcl 0.1 Mg Tablet) 0.1 mg PO BEDTIME [facility]; Protocol Last Admin: 04/11/22 20:29 Dose: 0.1 mg Haloperidol (Haloperidol 0.5 Mg Tablet) 0.5 mg PO BID [facility] Last Admin: 04/12/22 10:03 Dose: 0.5 mg Haloperidol (Haloperidol 1 Mg Tablet) 1 mg PO BEDTIME [facility] Last Admin: 04/11/22 20:29 Dose: 1 mg Haloperidol (Haloperidol 1 Mg Tablet) 2 mg PO BID PRN PRN Reason: Psychosis Lisinopril (Lisinopril 40 Mg Tablet) 40 mg PO BID [facility]; Protocol Last Admin: 04/12/22 10:02 Dose: 40 mg Lorazepam (Lorazepam 0.5 Mg Tablet) 0.5 mg PO Q8H PRN PRN Reason: Anxiety Last Admin: 04/11/22 17:03 Dose: 0.5 mg Magnesium Hydroxide (Milk Of Magnesia 30 Ml Oral.Susp) 30 ml PO DAILY PRN PRN Reason: Constipation Pharmacy Consult (Consult Rx Perform Med Rec) 1 each MISCELLANE ONCE PRN PRN Reason: Consult order Trazodone HCl (Trazodone Hcl 50 Mg Tablet) 50 mg PO BEDTIME MRX1 PRN PRN Reason: Insomnia Allergies Allergies Allergy/AdvReac Type Severity Reaction Status Date / Time Penicillins [PENICILLINS] Allergy Mild RASH Verified 04/09/22 05:54 Assessment & Plan Assessment & Plan (1) Dementia with psychotic disturbance: Status: Acute Code(s): F03.92 - Unspecified dementia, unspecified severity, with psychotic disturbance (2) Delirium: Status: Acute Code(s): R41.0 - Disorientation, unspecified Plan The patient is an elderly female with no prior psychiatric history, admitted for auditory and visual hallucinations in the context of a recent UTI. She has self-harm with a knife the night before of the admission to the emergency room. She complains of paranoia, visual hallucinations of people stealing her belongings and disorganized behavior. Plan 1. Gather collateral information. 2. Start haloperidol 0.5 p.o. b.i.d. to target psychosis on admission. I increase Haldol to 0.5 p.o. b.i.d. and 1 mg p.o. q.h.s.. We will add a p.r.n. of Haldol 2 mg p.o. b.i.d. p.r.n. psychosis.. 3. Continue lorazepam 0.5 mg p.o. b.i.d. p.r.n. anxiety. 4. Continue medical workout. 5. CT scan head without contrast for April 11 . 6. Repeat UA, basic metabolic panel, TSH and other regular blood work April 11. 04/12: check U/A due to suspicion of UTI. otherwise continue previous mgmt. Reason for contiued inpatient stay Substantial Risk for: inability to function and rapid decompensation Time Spent With Patient Time: Total time managing care of this patient today ____ minutes.
[2022-04-12 15:35] LABS: Appearance Urine Clear; Color Urine Yellow; Glucose Urine UA Negative (Negative); Leukocyte Esterase Urine Trace (Negative); Nitrite Urine Negative (Negative); PH 7.5 (5.0-9.0); UMIC TRIGGER UACC YES; Urine Blood Negative (Negative); Urine Ketones Negative (Negative); Urine Protein Negative (Neg-Trace)
[2022-04-12 15:37] LABS: Bacteria Urine None Seen (None Seen); Hyaline Casts Urine 0-2 /LPF (0-2); RBC Urine 0-2 /HPF (0-2); WBC Urine 0-5 /HPF (0-5)
[2022-04-12 18:00] VITALS: BP 145/66; PULSE 58; RESP 18; TEMP 36.8; O2SAT 93
[2022-04-12] MEDS: Atorvastatin Calcium 10 MG TABLET PO (20:53)
[2022-04-12] MEDS: cloNIDine HCL 0.1 MG TABLET PO (20:53)
[2022-04-12] MEDS: HaloperidoL 1 MG TABLET PO (20:54)
[2022-04-12] MEDS: Acetaminophen 325 MG TABLET 650 MG PO (22:12)
[2022-04-13 06:00] VITALS: BP 157/72; PULSE 64; RESP 16; TEMP 36.3; O2SAT 95
[2022-04-13] MEDS: atenoloL 50 MG TABLET PO (08:32)
[2022-04-13] MEDS: lisinopriL 40 MG TABLET PO ×2 (08:32→20:16)
[2022-04-13] MEDS: amLODIPine Besylate 5 MG TABLET PO (08:32)
[2022-04-13] MEDS: HaloperidoL 0.5 MG TABLET PO ×2 (08:32→20:16)
--- NOTE | 2022-04-13 11:04 | P.PNPSI_ITS ---
Subjective Subjective Date of Service: 04/13/22 Reason For Visit: Hallucinations Interim History: pt appears tense. states she is very anxious. hyper. asking for ativan for anxiety and tremulousness. various tangents made regarding being made to feel like an addict or criminal for making use of that medication in the past. MD informs pt he will investigate the possibility. per staff, pt won't discuss what happened to her wrist. c/o back pain. denies anxiety or depression. UA NEG. slept 8 hours overnight. Mental Status Exam Mental Status Exam Patient Appearance: Appropriate Patient Orientation: Person and Situation Level of Consciousness: Awake and Appropriate Patient Behavior: Guarded and Passive Mood Description: Withdrawn Affect Description: Labile Patient Cognition Impaired: Yes Ability to Follow Directions: Fair Speech Pattern: Clear Hallucinations: Auditory and Visual Delusions: Paranoid Ideation Thought Process: Illogical, Distracted, Evasive and Slowed Thinking Thought Content: positive for Thought Blocking and positive for Tangential Judgement: Fair Diagnostics Vital Signs (24Hr): Vital Signs - 24 hr 04/12/22 18:00 04/13/22 06:00 Temperature 98.2 F 97.3 F Pulse Rate 58 64 Respiratory Rate 18 16 Blood Pressure 145/66 H 157/72 H Pulse Oximetry 93 95 Oxygen Delivery Method Room Air Room Air BMI result Body Mass Index 16.9 Labs 04/11/22 07:47 04/11/22 07:47 Labs: Laboratory Results - last 48 hr 04/12/22 15:25 Urine Color Yellow Urine Appearance Clear Urine pH 7.5 Ur Specific [place] 1.010 Urine Protein Negative Urine Glucose (UA) Negative Urine Ketones Negative Urine Blood Negative Urine Nitrite Negative Ur Leukocyte Esterase Trace H Urine RBC 0-2 Urine WBC 0-5 Ur Squamous Epith Cells 3-5 Urine Bacteria None Seen Hyaline Casts 0-2 Imaging Radiology Impressions: ITS Impressions Head CT 04/11/22 10:17 IMPRESSION: There are scattered chronic small vessel ischemic changes within the periventricular white matter. Otherwise unremarkable examination. No evidence of acute territorial infarct or hemorrhage. Medications Medications Current Medications Acetaminophen (Acetaminophen 325 Mg Tablet) 650 mg PO Q6H PRN PRN Reason: Headache/Pain Mild Scale (1-3) Last Admin: 04/12/22 22:12 Dose: 650 mg Al Hydroxide/Mg Hydroxide (Magnesium Hydrox/Alum Hydrox 30 Ml Oral.Susp) 30 ml PO Q6H PRN PRN Reason: Heartburn/Nausea Albuterol Sulfate (Albuterol Sulfate 90 Mcg 8 Gm Inhaler) 2 puff INHALE Q6H PRN PRN Reason: wheezing Amlodipine Besylate (Amlodipine Besylate 5 Mg Tablet) 5 mg PO DAILY [facility]; Protocol Last Admin: 04/13/22 08:32 Dose: 5 mg Atenolol (Atenolol 50 Mg Tablet) 50 mg PO DAILY [facility]; Protocol Last Admin: 04/13/22 08:32 Dose: 50 mg Atorvastatin Calcium (Atorvastatin Calcium 10 Mg Tablet) 10 mg PO BEDTIME [facility] Last Admin: 04/12/22 20:53 Dose: 10 mg Clonidine HCl (Clonidine Hcl 0.1 Mg Tablet) 0.1 mg PO BEDTIME [facility]; Protocol Last Admin: 04/12/22 20:53 Dose: 0.1 mg Haloperidol (Haloperidol 0.5 Mg Tablet) 0.5 mg PO BID [facility] Last Admin: 04/13/22 08:32 Dose: 0.5 mg Haloperidol (Haloperidol 1 Mg Tablet) 1 mg PO BEDTIME [facility] Last Admin: 04/12/22 20:54 Dose: 1 mg Haloperidol (Haloperidol 1 Mg Tablet) 2 mg PO BID PRN PRN Reason: Psychosis Lisinopril (Lisinopril 40 Mg Tablet) 40 mg PO BID [facility]; Protocol Last Admin: 04/13/22 08:32 Dose: 40 mg Lorazepam (Lorazepam 0.5 Mg Tablet) 0.5 mg PO Q8H PRN PRN Reason: Anxiety Last Admin: 04/11/22 17:03 Dose: 0.5 mg Magnesium Hydroxide (Milk Of Magnesia 30 Ml Oral.Susp) 30 ml PO DAILY PRN PRN Reason: Constipation Pharmacy Consult (Consult Rx Perform Med Rec) 1 each MISCELLANE ONCE PRN PRN Reason: Consult order Trazodone HCl (Trazodone Hcl 50 Mg Tablet) 50 mg PO BEDTIME MRX1 PRN PRN Reason: Insomnia Allergies Allergies Allergy/AdvReac Type Severity Reaction Status Date / Time Penicillins [PENICILLINS] Allergy Mild RASH Verified 04/09/22 05:54 Assessment & Plan Assessment & Plan (1) Dementia with psychotic disturbance: Status: Acute Code(s): F03.92 - Unspecified dementia, unspecified severity, with psychotic disturbance (2) Delirium: Status: Acute Code(s): R41.0 - Disorientation, unspecified Plan The patient is an elderly female with no prior psychiatric history, admitted for auditory and visual hallucinations in the context of a recent UTI. She has self-harm with a knife the night before of the admission to the emergency room. She complains of paranoia, visual hallucinations of people stealing her belongings and disorganized behavior. Plan 1. Gather collateral information. 2. Start haloperidol 0.5 p.o. b.i.d. to target psychosis on admission. I increase Haldol to 0.5 p.o. b.i.d. and 1 mg p.o. q.h.s.. We will add a p.r.n. of Haldol 2 mg p.o. b.i.d. p.r.n. psychosis.. 3. Continue lorazepam 0.5 mg p.o. b.i.d. p.r.n. anxiety. 4. Continue medical workout. 5. CT scan head without contrast for April 11 . 6. Repeat UA, basic metabolic panel, TSH and other regular blood work April 11. 2: check U/A due to suspicion of UTI. otherwise continue previous mgmt. 04/13: UA NEG. asking for ativan 1 mg for anxiety. per chart review, already on ativan 0.5 mg Q8H PRN anxiety. will advance to Q6H PRN for daily total of 2 mg rather than 1.5 mg. otherwise continue current mgmt. Reason for contiued inpatient stay Substantial Risk for: harm to self, inability to function and rapid decompensation Time Spent With Patient Time: Total time managing care of this patient today ____ minutes.
[2022-04-13 18:00] VITALS: BP 164/74; PULSE 56; RESP 16; TEMP 36.1; O2SAT 95
[2022-04-13] MEDS: Atorvastatin Calcium 10 MG TABLET PO (20:16)
[2022-04-13] MEDS: HaloperidoL 1 MG TABLET PO (20:16)
[2022-04-13] MEDS: cloNIDine HCL 0.1 MG TABLET PO (20:16)
[2022-04-14 09:45] VITALS: BP 131/63; PULSE 65; RESP 14; TEMP 36.6; O2SAT 94
[2022-04-14] MEDS: HaloperidoL 0.5 MG TABLET PO (09:57)
[2022-04-14] MEDS: amLODIPine Besylate 5 MG TABLET PO (09:57)
[2022-04-14] MEDS: atenoloL 50 MG TABLET PO (09:57)
[2022-04-14] MEDS: lisinopriL 40 MG TABLET PO ×2 (09:58→20:41)
--- NOTE | 2022-04-14 12:03 | MHC.CLN ---
F/U DIET=REGULAR WITH ENSURE BID. SUPPLEMENT PROVIDES ADDITIONAL 700 KCALS, 40 G PROTEIN. OBSERVED AT LUNCH TODAY EATING INDEPENDENTLY IN THE DINING ROOM. CONTINUE TO FOLLOW FOR INTAKE AND WEIGHT.
--- NOTE | 2022-04-14 12:07 | HO.PSYCHPN ---
Subjective Subjective Date of Service: 04/14/22 Reason For Visit: Hallucinations Subjective Notes: Conditional Voluntary Interim History: The nursing staff reported the patient looks more oriented but still she has a paranoia. The occupational therapist reported that her Jimi test was 4.2 and they could not do the [place] at since the patient is legally blind. We have reports from the community that she sometimes wonders. The social worker health services reported that we will have a family meeting today to find out discharge planning since the patient have side a 3 day notice. During the meeting, she was adamant to be discharge tomorrow, she agreed for ancillary services. On interview the patient denies new symptoms, no oversedation with [facility] Mental Status Exam Mental Status Exam Patient Appearance: Well Grooomed and Appropriate Patient Orientation: Person and Situation Level of Consciousness: Awake and Appropriate Patient Behavior: Guarded and Passive Mood Description: Withdrawn and Constricted Affect Description: Constricted Patient Cognition Impaired: Yes Ability to Follow Directions: Good Speech Pattern: Clear Hallucinations: None Delusions: Not Present Thought Process: Distracted and Linear Thought Content: positive for Intact Judgement: Fair Diagnostics Vital Signs (24Hr): Vital Signs - 24 hr 04/13/22 18:00 04/14/22 09:45 Temperature 97 F 98 F Pulse Rate 56 65 Respiratory Rate 16 14 Blood Pressure 164/74 H 131/63 Pulse Oximetry 95 94 Oxygen Delivery Method Room Air Room Air BMI result Body Mass Index 16.9 Labs 04/11/22 07:47 04/11/22 07:47 Labs: Laboratory Results - last 48 hr 04/12/22 15:25 Urine Color Yellow Urine Appearance Clear Urine pH 7.5 Ur Specific [place] 1.010 Urine Protein Negative Urine Glucose (UA) Negative Urine Ketones Negative Urine Blood Negative Urine Nitrite Negative Ur Leukocyte Esterase Trace H Urine RBC 0-2 Urine WBC 0-5 Ur Squamous Epith Cells 3-5 Urine Bacteria None Seen Hyaline Casts 0-2 Imaging Radiology Impressions: ITS Impressions Head CT 04/11/22 10:17 IMPRESSION: There are scattered chronic small vessel ischemic changes within the periventricular white matter. Otherwise unremarkable examination. No evidence of acute territorial infarct or hemorrhage. Medications Medications Current Medications Acetaminophen (Acetaminophen 325 Mg Tablet) 650 mg PO Q6H PRN PRN Reason: Headache/Pain Mild Scale (1-3) Last Admin: 04/12/22 22:12 Dose: 650 mg Al Hydroxide/Mg Hydroxide (Magnesium Hydrox/Alum Hydrox 30 Ml Oral.Susp) 30 ml PO Q6H PRN PRN Reason: Heartburn/Nausea Albuterol Sulfate (Albuterol Sulfate 90 Mcg 8 Gm Inhaler) 2 puff INHALE Q6H PRN PRN Reason: wheezing Amlodipine Besylate (Amlodipine Besylate 5 Mg Tablet) 5 mg PO DAILY [facility]; Protocol Last Admin: 04/14/22 09:57 Dose: 5 mg Atenolol (Atenolol 50 Mg Tablet) 50 mg PO DAILY [facility]; Protocol Last Admin: 04/14/22 09:57 Dose: 50 mg Atorvastatin Calcium (Atorvastatin Calcium 10 Mg Tablet) 10 mg PO BEDTIME [facility] Last Admin: 04/13/22 20:16 Dose: 10 mg Clonidine HCl (Clonidine Hcl 0.1 Mg Tablet) 0.1 mg PO BEDTIME [facility]; Protocol Last Admin: 04/13/22 20:16 Dose: 0.1 mg Haloperidol (Haloperidol 1 Mg Tablet) 1 mg PO BEDTIME [facility] Last Admin: 04/13/22 20:16 Dose: 1 mg Haloperidol (Haloperidol 1 Mg Tablet) 2 mg PO BID PRN PRN Reason: Psychosis Haloperidol (Haloperidol 1 Mg Tablet) 1 mg PO BID [facility] Lisinopril (Lisinopril 40 Mg Tablet) 40 mg PO BID [facility]; Protocol Last Admin: 04/14/22 09:58 Dose: 40 mg Lorazepam (Lorazepam 0.5 Mg Tablet) 0.5 mg PO Q6H PRN PRN Reason: Anxiety Magnesium Hydroxide (Milk Of Magnesia 30 Ml Oral.Susp) 30 ml PO DAILY PRN PRN Reason: Constipation Pharmacy Consult (Consult Rx Perform Med Rec) 1 each MISCELLANE ONCE PRN PRN Reason: Consult order Trazodone HCl (Trazodone Hcl 50 Mg Tablet) 50 mg PO BEDTIME MRX1 PRN PRN Reason: Insomnia Allergies Allergies Allergy/AdvReac Type Severity Reaction Status Date / Time Penicillins [PENICILLINS] Allergy Mild RASH Verified 04/09/22 05:54 Assessment & Plan Assessment & Plan (1) Dementia with psychotic disturbance: Status: Acute Code(s): F03.92 - Unspecified dementia, unspecified severity, with psychotic disturbance (2) Delirium: Status: Acute Code(s): R41.0 - Disorientation, unspecified Plan The patient is an elderly female with no prior psychiatric history, admitted for auditory and visual hallucinations in the context of a recent UTI. She has self-harm with a knife the night before of the admission to the emergency room. She complains of paranoia, visual hallucinations of people stealing her belongings and disorganized behavior. Plan 1. Gather collateral information. 2. Start haloperidol 0.5 p.o. b.i.d. to target psychosis on admission. I increase Haldol to 0.5 p.o. b.i.d. and 1 mg p.o. q.h.s.. We will add a p.r.n. of Haldol 2 mg p.o. b.i.d. p.r.n. psychosis.. 3. Continue lorazepam 0.5 mg p.o. b.i.d. p.r.n. anxiety. 4. Continue medical workout. 5. CT scan head without contrast for April 11 . 6. Repeat UA, basic metabolic panel, TSH and other regular blood work April 11. No evidence of UTI at this moment. 7. Family meeting for today in the afternoon for discharge planning. Reason for contiued inpatient stay Substantial Risk for: inability to function, rapid decompensation and med/psych decompensation Time Spent With Patient Time: Total time managing care of this patient today _20___ minutes.
[2022-04-14 18:00] VITALS: BP 124/89; PULSE 63; RESP 18; TEMP 36.3; O2SAT 95
[2022-04-14] MEDS: Atorvastatin Calcium 10 MG TABLET PO (20:41)
[2022-04-14] MEDS: cloNIDine HCL 0.1 MG TABLET PO (20:41)
[2022-04-14] MEDS: HaloperidoL 1 MG TABLET PO (20:41)
[2022-04-14] MEDS: traZODone HCL 50 MG TABLET PO (20:47)
--- NOTE | 2022-04-15 08:08 | P.DS_ITS ---
DS: Providers Provider Date of Service: 04/15/22 Date of admission: 04/10/22 12:36 Date of discharge: 04/15/22 Primary care physician: Tong Garcia III, MD Consults: 04/09/22 05:25 Consult to Care Team Stat Comment: Reason for consultation: [facility] DS: Diagnosis Discharge Diagnosis (1) Dementia with psychotic disturbance: Status: Acute (2) Delirium: Status: Acute DS: Medications Discharge Medications Home Medications: Home Medications Medication Instructions Recorded Confirmed albuterol sulfate 90 mcg/actuation 2 puff inhalation Q6H PRN wheezing 04/09/22 04/09/22 aerosol inhaler amlodipine 5 mg tablet 1 tab PO DAILY 04/09/22 04/09/22 atenolol 25 mg tablet 2 tab PO DAILY 04/09/22 04/09/22 clonidine HCl 0.1 mg tablet 1 tab PO BEDTIME 04/09/22 04/09/22 lisinopril 40 mg tablet 1 tab PO BID 04/09/22 04/09/22 simvastatin 20 mg tablet 1 tab PO BEDTIME 04/09/22 04/09/22 Mental Status Exam Mental Status Exam Patient Appearance: Well Grooomed and Appropriate Patient Orientation: Person and Situation Level of Consciousness: Awake and Appropriate Patient Behavior: Guarded and Passive Mood Description: Calm Affect Description: Constricted Patient Cognition Impaired: Yes Ability to Follow Directions: Good Speech Pattern: Clear Hallucinations: None Delusions: Paranoid Ideation Thought Process: Distracted and Slowed Thinking Thought Content: positive for Circumstantial and positive for Poverty of Content Judgement: Fair Judgement and Insight: Insight limited , judgment improved Data Data Completed and Pending Completed studies during hospitalization [Text1]: 04/09/22 04/09/22 04/09/22 05:32 05:44 05:44 WBC 8.0 RBC 4.85 Hgb 15.1 Hct 44.3 MCV 91.3 MCH 31.1 MCHC 34.1 RDW 14.4 Plt Count 166 MPV 12.6 H Immature Gran % (Auto) 0.3 Neut % (Auto) 77.4 H Lymph % (Auto) 14.3 L [place] % (Auto) 7.6 Eos % (Auto) 0.1 Baso % (Auto) 0.3 Lymph # (Auto) 1.1 L [place] # (Auto) 0.6 Eos # (Auto) 0.0 Baso # (Auto) 0.0 Abs Immat Gran (auto) 0.02 Absolute Neuts (auto) 6.2 Absolute Nucleated RBC 0.000 Nucleated RBC % (auto) 0.0 Neutrophils % (Manual) 84 H Band Neutrophils % 1 L Lymphocytes % (Manual) 12 L Atypical Lymphs % (Man) Monocytes % (Manual) 3 Abs Neuts (Manual) 6.8 Lymphocytes # (Manual) 1.0 L Atyp Lymphs # (Manual) Monocytes # (Manual) 0.2 Smudge Cells PRESENT Toxic Vacuolation PRESENT Platelet Estimate SLIGHTLY DECREASED Large Platelets PRESENT Plt Morphology Comment NORMAL RBC Morphology NOTED Macrocytosis 1+ (5-14) Ovalocytes 1+ (5-14) Schulter Cells 1+ (0-2) Sodium 142 Potassium 3.5 Chloride 101 Carbon Dioxide 27 Anion Gap 18 BUN 16 Creatinine 0.88 Estim Creat Clear Calc 35.1 Estimated GFR > 60 Random Glucose 172 H Fasting Glucose Estimat Average Glucose Hemoglobin A1c % Calcium 9.7 Total Bilirubin 1.0 Direct Bilirubin AST 14 ALT 6 Alkaline Phosphatase 62 Troponin I High Sens Total Protein 6.7 Albumin 4.1 Triglycerides Cholesterol LDL Cholesterol, Calc HDL Cholesterol TSH Urine Color Urine Appearance Urine pH Ur Specific [place] Urine Protein Urine Glucose (UA) Urine Ketones Urine Blood Urine Nitrite Ur Leukocyte Esterase Urine RBC Urine WBC Ur Squamous Epith Cells Urine Bacteria Hyaline Casts Urine Opiates Screen Urine Fentanyl Screen Ur Barbiturates Screen Ur Phencyclidine Scrn Ur Amphetamines Screen U Benzodiazepines Scrn Urine Cocaine Screen U Marijuana (THC) Screen COVID-19 (GILLIAN) Negative COVID-19 Clin Com See Note 04/09/22 04/09/22 04/09/22 08:12 08:12 13:22 WBC RBC Hgb Hct MCV MCH MCHC RDW Plt Count MPV Immature Gran % (Auto) Neut % (Auto) Lymph % (Auto) [place] % (Auto) Eos % (Auto) Baso % (Auto) Lymph # (Auto) [place] # (Auto) Eos # (Auto) Baso # (Auto) Abs Immat Gran (auto) Absolute Neuts (auto) Absolute Nucleated RBC Nucleated RBC % (auto) Neutrophils % (Manual) Band Neutrophils % Lymphocytes % (Manual) Atypical Lymphs % (Man) Monocytes % (Manual) Abs Neuts (Manual) Lymphocytes # (Manual) Atyp Lymphs # (Manual) Monocytes # (Manual) Smudge Cells Toxic Vacuolation Platelet Estimate Large Platelets Plt Morphology Comment RBC Morphology Macrocytosis Ovalocytes Schulter Cells Sodium Potassium Chloride Carbon Dioxide Anion Gap BUN Creatinine Estim Creat Clear Calc Estimated GFR Random Glucose Fasting Glucose Estimat Average Glucose Hemoglobin A1c % Calcium Total Bilirubin Direct Bilirubin AST ALT Alkaline Phosphatase Troponin I High Sens 18.4 H D Total Protein Albumin Triglycerides Cholesterol LDL Cholesterol, Calc HDL Cholesterol TSH Urine Color Yellow Urine Appearance Clear Urine pH 7.0 Ur Specific [place] 1.010 Urine Protein Negative Urine Glucose (UA) Negative Urine Ketones Trace Urine Blood Negative Urine Nitrite Negative Ur Leukocyte Esterase Trace H Urine RBC 0-2 Urine WBC 0-5 Ur Squamous Epith Cells 0-2 Urine Bacteria None Seen Hyaline Casts 0-2 Urine Opiates Screen Not Detected Urine Fentanyl Screen Not Detected Ur Barbiturates Screen Not Detected Ur Phencyclidine Scrn Not Detected Ur Amphetamines Screen Not Detected U Benzodiazepines Scrn Not Detected Urine Cocaine Screen Not Detected U Marijuana (THC) Screen Not Detected COVID-19 (GILLIAN) COVID-19 Clin Com 04/09/22 04/11/22 04/11/22 23:52 07:47 07:47 WBC 10.7 RBC 5.12 Hgb 15.9 Hct 47.7 H MCV 93.2 MCH 31.1 MCHC 33.3 RDW 14.5 Plt Count 146 L MPV 13.5 H Immature Gran % (Auto) Cancelled Neut % (Auto) Cancelled Lymph % (Auto) Cancelled [place] % (Auto) Cancelled Eos % (Auto) Cancelled Baso % (Auto) Cancelled Lymph # (Auto) Cancelled [place] # (Auto) Cancelled Eos # (Auto) Cancelled Baso # (Auto) Cancelled Abs Immat Gran (auto) Cancelled Absolute Neuts (auto) Cancelled Absolute Nucleated RBC 0.000 Nucleated RBC % (auto) 0.0 Neutrophils % (Manual) 72 Band Neutrophils % 1 L Lymphocytes % (Manual) 23 Atypical Lymphs % (Man) 1 Monocytes % (Manual) 3 Abs Neuts (Manual) 7.8 Lymphocytes # (Manual) 2.5 Atyp Lymphs # (Manual) 0.1 Monocytes # (Manual) 0.3 Smudge Cells Toxic Vacuolation Platelet Estimate SLIGHTLY DECREASED Large Platelets Plt Morphology Comment NORM RBC Morphology NORMAL Macrocytosis Ovalocytes Vera Cells Sodium 141 Potassium 3.5 Chloride 99 Carbon Dioxide 27 Anion Gap 19 BUN 17 H Creatinine 0.79 Estim Creat Clear Calc 39.1 Estimated GFR > 60 Random Glucose Fasting Glucose 96 Estimat Average Glucose Hemoglobin A1c % Calcium 10.2 Total Bilirubin 1.1 H Direct Bilirubin AST 15 ALT 6 Alkaline Phosphatase 65 Troponin I High Sens 19.3 H Total Protein 7.2 Albumin 4.4 Triglycerides Cholesterol LDL Cholesterol, Calc HDL Cholesterol TSH Urine Color Urine Appearance Urine pH Ur Specific [place] Urine Protein Urine Glucose (UA) Urine Ketones Urine Blood Urine Nitrite Ur Leukocyte Esterase Urine RBC Urine WBC Ur Squamous Epith Cells Urine Bacteria Hyaline Casts Urine Opiates Screen Urine Fentanyl Screen Ur Barbiturates Screen Ur Phencyclidine Scrn Ur Amphetamines Screen U Benzodiazepines Scrn Urine Cocaine Screen U Marijuana (THC) Screen COVID-19 (GILLIAN) COVID-19 Clin Com 04/11/22 04/11/22 04/12/22 07:47 07:47 15:25 WBC RBC Hgb Hct MCV MCH MCHC RDW Plt Count MPV Immature Gran % (Auto) Neut % (Auto) Lymph % (Auto) [place] % (Auto) Eos % (Auto) Baso % (Auto) Lymph # (Auto) [place] # (Auto) Eos # (Auto) Baso # (Auto) Abs Immat Gran (auto) Absolute Neuts (auto) Absolute Nucleated RBC Nucleated RBC % (auto) Neutrophils % (Manual) Band Neutrophils % Lymphocytes % (Manual) Atypical Lymphs % (Man) Monocytes % (Manual) Abs Neuts (Manual) Lymphocytes # (Manual) Atyp Lymphs # (Manual) Monocytes # (Manual) Smudge Cells Toxic Vacuolation Platelet Estimate Large Platelets Plt Morphology Comment RBC Morphology Macrocytosis Ovalocytes Schulter Cells Sodium 140 Potassium 3.5 Chloride 100 Carbon Dioxide 27 Anion Gap 17 BUN 18 H Creatinine 0.80 Estim Creat Clear Calc 38.6 Estimated GFR > 60 Random Glucose 96 Fasting Glucose Estimat Average Glucose 117 Hemoglobin A1c % 5.7 Calcium 10.1 Total Bilirubin 1.1 H Direct Bilirubin 0.3 AST 15 ALT 6 Alkaline Phosphatase 64 Troponin I High Sens Total Protein 7.1 Albumin 4.4 Triglycerides 118 Cholesterol 155 LDL Cholesterol, Calc 79 HDL Cholesterol 53 TSH 3.07 Urine Color Yellow Urine Appearance Clear Urine pH 7.5 Ur Specific [place] 1.010 Urine Protein Negative Urine Glucose (UA) Negative Urine Ketones Negative Urine Blood Negative Urine Nitrite Negative Ur Leukocyte Esterase Trace H Urine RBC 0-2 Urine WBC 0-5 Ur Squamous Epith Cells 3-5 Urine Bacteria None Seen Hyaline Casts 0-2 Urine Opiates Screen Urine Fentanyl Screen Ur Barbiturates Screen Ur Phencyclidine Scrn Ur Amphetamines Screen U Benzodiazepines Scrn Urine Cocaine Screen U Marijuana (THC) Screen COVID-19 (GLILIAN) COVID-19 Clin Com Imaging Diagnostic Imaging Impressions Head CT 04/11/22 10:17 IMPRESSION: There are scattered chronic small vessel ischemic changes within the periventricular white matter. Otherwise unremarkable examination. No evidence of acute territorial infarct or hemorrhage. DS: Summary Hospital Course Hospital Course: The patient is an 87-year-old female, mother of adult children, living with her long-time partner and adult daughter, referred from the emergency room after she self-inflicted a cut superficially on her forearm in the context of psychosis and paranoia.? According to the patient's family, the patient had been having psychotic symptoms for the last month elicited by paranoia, visual hallucinations and auditory hallucinations.? Please see the HPI note for further details.? On admission, the patient signed a conditional voluntary and immediately a 3 day notice.? On the 1st interview, the patient could not remember how she hurt herself, she admitted some paranoia, the delusion that people were stealing her clothes and belongings and sporadic visual hallucinations.? It was noticeable that before of this admission the patient was in the emergency room 3 days before for similar presentation in the context of a UTI. The patient was initially started on Haldol titrated up to 1 mg p.o. t.i.d. with for improvement of her visual hallucinations and psychosis.? Even though she still has delusions that people were stealing her belongings.? We had several family meetings and we explained the diagnosis of the patient.? The patient is legally blind and she could not do a [place] test but she score over 4 points on the Jimi cognitive test. Since there were no safety concerns discharge planning was discussed with a proper aftercare referrals in the community.? Please see the manager social responsibility aftercare for further details. Time spent discussing smoking cessation with patient: 3 to 10 minutes Status at Discharge Functional status at discharge: independent ambulation Overall status at discharge: patient is back to baseline Time Spent with Patient Time attestation: Total time managing care of this patient today __30__ minutes. Discharge Plan Discharge Anticipated Discharge Date/Time: 04/15/22 20:00 Patient Disposition: Home Health Service Discharge Diagnosis: Dementia Delirium resolved. Referrals: [facility] [Other] - 1 Week (Referral for [facility] placed. ) Nola Guthrie NP [Other] - 1 Week Tong Garcia III, MD [Primary Care Provider] - 05/15/22 1:30 pm (Doctors office could not get her an appointment until May, @ 1:30, so I scheduled it. Spoke with Chelsey and requested for her to reach out to RN/DR to see if they can come up with a sooner date.) Discharge Medications: New trazodone 50 mg Tablet 50 mg PO BEDTIME MRX1 PRN (Reason: Insomnia) 30 Days Qty: 30 0RF lorazepam 0.5 mg Tablet 0.5 mg PO Q6H PRN (Reason: Anxiety) 30 Days Qty: 60 0RF haloperidol 1 mg tablet 1 mg PO TID Qty: 90 0RF Continued clonidine HCl 0.1 mg tablet 1 tab PO BEDTIME 30 Days Qty: 30 0RF atenolol 25 mg tablet 2 tab PO DAILY 30 Days Qty: 60 0RF amlodipine 5 mg tablet 1 tab PO DAILY 30 Days Qty: 30 0RF simvastatin 20 mg tablet 1 tab PO BEDTIME 30 Days Qty: 30 0RF albuterol sulfate 90 mcg/actuation HFA aerosol inhaler 2 puff inhalation Q6H PRN (Reason: wheezing) Qty: 1 0RF lisinopril 40 mg tablet 1 tab PO BID 30 Days Qty: 60 0RF Discharge Orders: Discharge Order (Routine); Ordered 04/15/22 Ordered By: John Gillespie Diet: Advance to usual diet Activity on Discharge: As tolerated Stand Alone Forms: Patient Portal Discharge page Care Plan Goals: Care plan goals achieved in this admission Health Concerns: Continue treatment with primary care physician Plan of Treatment: Continue medication management as an outpatient Referral for outpatient ancillary services. Assessment: For self-harming behavior in the context of psychotic symptoms due to delirium She was able to tolerate fairly well Haldol with no side effects and resolution of visual hallucinations. At this moment safe to be in the community.
[2022-04-15 10:00] VITALS: BP 134/61; PULSE 60; RESP 16; TEMP 36.6; O2SAT 94
[2022-04-15] MEDS: amLODIPine Besylate 5 MG TABLET PO (10:02)
[2022-04-15] MEDS: atenoloL 50 MG TABLET PO (10:03)
[2022-04-15] MEDS: lisinopriL 40 MG TABLET PO (10:03)
[2022-04-15] MEDS: HaloperidoL 1 MG TABLET PO (10:03)
--- NOTE | 2022-04-15 16:19 | PC.NURSE ---
Pt. alert and oriented X 4. No evidence of delusions or hallucinations. Reports readiness for discharge. All medications and discharge instructions reviewed with pt., daughter, and significant other, who verbalized understanding. Pt. escorted off unit and to significant others car via at 1415.
== END 2022-04-15 14:15 | disposition home health service (06) | DRG 884 ==
LOC: HO.ED 04-10 07:47 → HO.PGERI 04-10 12:48
PROVIDERS: Internal Medicine; Physician Assistant; Psychiatry & Neurology Psychiatry; Student in an Organized Health Care Education/Training Program; Admitting Provider Psychiatry & Neurology Psychiatry; Emergency Provider Emergency Medicine Emergency Medical Services; PCP Internal Medicine; Visit Provider Psychiatry & Neurology Psychiatry
DX: F03.92 Unspecified dementia, unspecified severity, with psychotic disturbance (principal); F05 Delirium due to known physiological condition; H54.8 Legal blindness, as defined in USA; F17.210 Nicotine dependence, cigarettes, uncomplicated; Z71.6 Tobacco abuse counseling; Z20.822 Contact with and (suspected) exposure to COVID-19; Z88.0 Allergy status to penicillin; Z79.899 Other long term (current) drug therapy
CPT/HCPCS: 36415; 70450; 80048; 80053; 80061; 80076; 80307; 81001; 83036; 84443; 84484; 85007; 85025; 85027; 87635; 93005; 99285; S9485

== ENCOUNTER 2022-04-17 16:50 | Inpatient (IN) | payer MEDICARE, OTHER, SELFPAY ==
--- NOTE | ~2022-04-17 | XR_ITS ---
EXAMINATION: XR CHEST CLINICAL INFORMATION: COPD with fever COMPARISON: Chest x-ray 05/07/2011 TECHNIQUE: Frontal view of the chest was obtained. FINDINGS: Unchanged mild elevation left hemidiaphragm. Minimal curvilinear probable subsegmental atelectasis in the left lung base. No airspace consolidation identified. No pleural effusion seen. No pneumothorax. Unchanged calcified granulomas in the peripheral right mid and lower lung. Normal cardiomediastinal silhouette. No evidence of pulmonary edema. No acute osseous injury is seen. Calcific tendinopathy of the right rotator cuff noted incidentally. XR/XR chest 1V IMPRESSION: 1. No acute pulmonary process. 2. Mild elevation left hemidiaphragm with mild left basilar subsegmental atelectasis.
--- NOTE | ~2022-04-17 | XR_ITS ---
EXAMINATION: XR CHEST CLINICAL INFORMATION: Shortness of breath. COMPARISON: Chest done on 04/17/2022. TECHNIQUE: Frontal view of the chest was obtained. FINDINGS: No significant abnormality is noted involving the heart, lungs, mediastinum, bony thorax or soft tissues. Calcified granuloma at right lung base, unchanged. XR/XR chest 1V IMPRESSION: No radiographic evidence of acute cardiopulmonary disease, unchanged since 04/27/2022.
--- NOTE | 2022-04-17 16:59 | ECG_ITS ---
Test Reason : WEAKNESS Blood Pressure : / mmHG Vent. Rate : 068 BPM Atrial Rate : 068 BPM P-R Int : 134 ms QRS Dur : 084 ms QT Int : 410 ms P-R-T Axes : 000 -26 158 degrees QTc Int : 435 ms Sinus rhythm with Premature atrial complexes Inferior infarct , age undetermined Possible Anterior infarct (cited on or before 04-APR-2022) ST & T wave abnormality, consider lateral ischemia Abnormal ECG When compared with ECG of 09-APR-2022 13:02, No significant changes seen Referred By: Vianca Barboza Electronically Signed By:GEOVANNY WORTHY MD
[2022-04-17 17:05] VITALS: BP 130/60; BP 132/62; PULSE 73; PULSE 74; RESP 16; TEMP 38.8; O2SAT 94; BMI 15.0
--- NOTE | 2022-04-17 17:15 | ED_ITS ---
HPI - Weakness General Chief complaint: Weakness Stated complaint: NOT FEELING WELL,LOW PO INTAKE,T 99.3 PER EMS Time Seen by Provider: 04/17/22 16:52 Source: patient and EMS Mode of arrival: EMS Limitations: no limitations History of Present Illness HPI Narrative: Patient comes to the emergency room complaining of feeling weak. Patient was brought to emergency room by EMS. EMS reports that the family was concerned that the patient is not eating well and patient has been complaining that she feels weak. Patient was admitted from April 09 through April 15, treated for delirium and chronic dementia with psychotic disturbance. Patient states that she does know why she is here. Patient states that other than feeling weak, she has no complaints. Denies chest pain, no shortness of breath. No nausea vomiting diarrhea. Related Data Previous Rx's Medication Instructions Recorded albuterol sulfate 90 mcg/actuation 2 puff inhalation Q6H PRN wheezing 04/15/22 aerosol inhaler #1 inhaler amlodipine 5 mg tablet 1 tab PO DAILY 30 days #30 tabs 04/15/22 atenolol 25 mg tablet 2 tab PO DAILY 30 days #60 tabs 04/15/22 clonidine HCl 0.1 mg tablet 1 tab PO BEDTIME 30 days #30 tabs 04/15/22 haloperidol 1 mg tablet 1 mg PO TID #90 tabs 04/15/22 lisinopril 40 mg tablet 1 tab PO BID 30 days #60 tabs 04/15/22 lorazepam 0.5 mg tablet 0.5 mg PO Q6H PRN Anxiety 30 days 04/15/22 #60 tabs simvastatin 20 mg tablet 1 tab PO BEDTIME 30 days #30 tabs 04/15/22 trazodone 50 mg tablet 50 mg PO BEDTIME MRX1 PRN Insomnia 04/15/22 30 days #30 tabs Allergies Allergy/AdvReac Type Severity Reaction Status Date / Time Penicillins [PENICILLINS] Allergy Mild RASH Verified 04/09/22 05:54 Review of Systems Review of Systems: Constitutional : No Weight loss, No Fever, No Chills, No Night Sweats, complaining of fatigue ENT/Mouth : No Hearing loss, No Ear Pain, No Nasal Congestion, No Sinus Pain, No Hoarseness, No sore throat, No Rhinorrhea, No Swallowing Difficulty Eyes: No Eye Pain, No Swelling, No Redness, No Foreign Body, No Discharge, No Vision Changes Cardiovascular : No Chest Pain, No SOB, No Dyspnea on Exertion, No Orthopnea, No Edema, No Palpitations Respiratory : No Cough, No Sputum, No Wheezing, No Smoke Exposure, No Dyspnea Gastrointestinal : No Nausea, No Vomiting, No Diarrhea, No Constipation, No abdominal Pain, No Hematochezia, No Melena Genitourinary : no irregular bleeding, No Dysuria, No Urinary Frequency, No Hematuria, No Urinary Incontinence, No Urgency, No Flank Pain, No Urinary Flow Changes, No Hesitancy Musculoskeletal : No joint pain, No Myalgias, No Joint Swelling Skin : No Skin Lesions, No rash Neuro : No Weakness, No Numbness, No Paresthesias, No Loss of Consciousness, No Dizziness, No Headache Psych : No Anxiety/Panic, No Depression, No SI/HI/AH/VH, No Social Issues, Heme/Lymph: No Bruising, No Bleeding,No Lymphadenopathy Endocrine : No Polyuria, No Polydipsia, No Temperature Intolerance [facility] Past Medical History Medical History (Updated 04/17/22 @ 17:18 by Vianca Barboza MD) Dementia with psychotic disturbance Social History Social History Household Members: Children and Friend(s) Household Members Other:: Lives with daughter and platonic male friend. Housing: House Do you presently have visiting nurse or other home services: No Patient Tobacco Use Status: Current everyday Tobacco user Tobacco use type: Cigarette Cigarette Packs Per Day: 1 Cigarettes Per Day: 20.0 Years Smoked: Many. I stopped 17 years before I started again. Second Hand Smoke Exposure: Yes ( [place], but doesn't smoke like I do. ) Advance Directives: Yes Advance Directives on File: Yes Advance Directives Date on File: 04/16/22 service: No Physical Exam Vital Signs: Vital Signs: Last Vital Signs Temp 101.8 F H 04/17/22 17:05 Pulse 73 04/17/22 17:05 Resp 16 04/17/22 17:05 BP 132/62 04/17/22 17:05 Pulse Ox 94 04/17/22 17:05 O2 Del Method 04/17/22 17:05 BMI result Body Mass Index 15.0 Const: Other: Appearance: Alert. Oriented X3. No acute distress. Somnolent, seems weak Eyes: Pupils equal, round and reactive to light. ENT: Pharynx normal. Neck: Normal inspection. Neck supple. No lymph nodes noted. No crepitus CVS: Normal heart rate and rhythm. Pulses normal. Normal S1 and S2 Respiratory: No respiratory distress. Breath sounds normal. No Wheezing. No rales Abdomen: Soft and nontender. No rigidity. No distention. Skin: Skin warm and dry. Normal skin color. Normal skin turgor. Extremities: No lower extremity edema. No Lacerations. No Rash Neuro: Oriented X 3. No motor deficit. No sensory deficit. Moving all extremities. No slurred speech. CN 2 through 12 grossly intact Psych: calm, cooperative, normal affect Course Course Course Narrative: -patient tested positive for COVID-19, patient has healed to drive, patient is very weak, oxygen saturation within normal limits. -page patient being admitted. Medications Administered Discontinued Medications Generic Name Dose Route Start Last Admin Trade Name Freq PRN Reason Stop Dose Admin Sodium Chloride 1,000 mls @ 999 mls/hr 04/17/22 16:58 04/17/22 18:55 Ns IVCONT 04/17/22 17:58 999 mls/hr .Q1H1M ONE Administration Medical Decision Making Medical Decision Making [facility] Narrative: -failure to thrive -COVID-19 Differential Diagnosis Differential Diagnoses: The differential diagnosis associated with the presentation includes (UTI, failure to thrive, decompensation) Admission/Observation Consideration of admission/observation: Escalation of care including admission/observation considered Consult Healthcare Provider Management of the patient was discussed with: Hospitalist (I discussed the patient with Dr. Umanzor) Lab Data [facility] Lab Attestation statement: I reviewed the patient's lab results. 04/17/22 17:24 04/17/22 17:24 Labs: Lab Results 04/17/22 04/17/22 04/17/22 Range/Units 17:23 17:23 17:24 WBC 5.6 (4.8-10.8) X10*3/uL RBC 4.35 (4.20-5.50) X10*6/uL Hgb 13.4 (12.0-16.0) g/dl Hct 40.6 (37.0-47.0) % MCV 93.3 (80.0-98.0) fL MCH 30.8 (27.0-33.0) pg MCHC 33.0 (31.0-35.0) g/dl RDW 14.7 (11.0-16.0) % Plt Count 113 L (160-400) X10*3/uL MPV 14.2 H (9.4-12.3) fL Immature Gran % (Auto) Cancelled Neut % (Auto) Cancelled Lymph % (Auto) Cancelled [place] % (Auto) Cancelled Eos % (Auto) Cancelled Baso % (Auto) Cancelled Lymph # (Auto) Cancelled [place] # (Auto) Cancelled Eos # (Auto) Cancelled Baso # (Auto) Cancelled Abs Immat Gran (auto) Cancelled Absolute Neuts (auto) Cancelled Absolute Nucleated RBC 0.000 (0.0-0.012) X10*3/uL Nucleated RBC % (auto) 0.0 (0.0-0.2) /100WBC Neutrophils % (Manual) 80 H (45-73) % Band Neutrophils % 3 (3-5) % Lymphocytes % (Manual) 5 L (20-40) % Monocytes % (Manual) 9 (2-11) % Eosinophils % (Manual) 3 (0-4) % Abs Neuts (Manual) 4.6 (2.0-8.3) X10*3/uL Lymphocytes # (Manual) 0.3 L (1.2-4.9) X10*3/uL Monocytes # (Manual) 0.5 (0.1-1.2) X10*3/uL Eosinophils # (Manual) 0.2 (0.0-0.4) X10*3/uL Toxic Granulation PRESENT Platelet Estimate DECREASED (NORMAL) Large Platelets PRESENT Plt Morphology Comment NOTED RBC Morphology NOTED Basophilic Stippling 1+ (0-2) /OIF Microcytosis 1+ (5-14) /OIF [place] Cells 2+ (3-5) /OIF Acanthocytes (Spur) 1+ (0-2) /OIF Sodium (135-145) mmol/L Potassium (3.3-5.1) mmol/L Chloride (96-108) mmol/L Carbon Dioxide (22-29) mmol/L Anion Gap (12-20) BUN (9-16) mg/dL Creatinine (0.5-1.4) mg/dL Estim Creat Clear Calc Estimated GFR Random Glucose (60-115) mg/dL Lactic Acid 1.2 (0.5-2.0) mmol/L Calcium (8.4-10.2) mg/dL Magnesium (1.6-2.6) mg/dL Total Bilirubin (0.0-1.0) mg/dL Direct Bilirubin (0.0-0.5) mg/dL AST (5-31) U/L ALT (0-31) U/L Alkaline Phosphatase (39-117) U/L Troponin I High Sens 15.1 (<3.5-17.0) ng/L Total Protein (6.5-8.0) g/dL Albumin (3.5-5.0) g/dL COVID-19 (GILLIAN) (Negative) COVID-19 Clin Com Influenza Type A (TIFFANIE) (Negative) Influenza Type B (TIFFANIE) (Negative) Influenza A & B Note 04/17/22 04/17/22 04/17/22 Range/Units 17:24 17:24 17:24 WBC (4.8-10.8) X10*3/uL RBC (4.20-5.50) X10*6/uL Hgb (12.0-16.0) g/dl Hct (37.0-47.0) % MCV (80.0-98.0) fL MCH (27.0-33.0) pg MCHC (31.0-35.0) g/dl RDW (11.0-16.0) % Plt Count (160-400) X10*3/uL MPV (9.4-12.3) fL Immature Gran % (Auto) Neut % (Auto) Lymph % (Auto) [place] % (Auto) Eos % (Auto) Baso % (Auto) Lymph # (Auto) [place] # (Auto) Eos # (Auto) Baso # (Auto) Abs Immat Gran (auto) Absolute Neuts (auto) Absolute Nucleated RBC (0.0-0.012) X10*3/uL Nucleated RBC % (auto) (0.0-0.2) /100WBC Neutrophils % (Manual) (45-73) % Band Neutrophils % (3-5) % Lymphocytes % (Manual) (20-40) % Monocytes % (Manual) (2-11) % Eosinophils % (Manual) (0-4) % Abs Neuts (Manual) (2.0-8.3) X10*3/uL Lymphocytes # (Manual) (1.2-4.9) X10*3/uL Monocytes # (Manual) (0.1-1.2) X10*3/uL Eosinophils # (Manual) (0.0-0.4) X10*3/uL Toxic Granulation Platelet Estimate (NORMAL) Large Platelets Plt Morphology Comment RBC Morphology Basophilic Stippling /OIF Microcytosis /OIF [place] Cells /OIF Acanthocytes (Spur) /OIF Sodium 144 (135-145) mmol/L Potassium 3.9 (3.3-5.1) mmol/L Chloride 102 (96-108) mmol/L Carbon Dioxide 31 H (22-29) mmol/L Anion Gap 15 (12-20) BUN 24 H (9-16) mg/dL Creatinine 0.91 (0.5-1.4) mg/dL Estim Creat Clear Calc 29.1 Estimated GFR 59 Random Glucose 95 (60-115) mg/dL Lactic Acid (0.5-2.0) mmol/L Calcium 9.6 (8.4-10.2) mg/dL Magnesium 1.9 (1.6-2.6) mg/dL Total Bilirubin 0.7 (0.0-1.0) mg/dL Direct Bilirubin 0.2 (0.0-0.5) mg/dL AST 15 (5-31) U/L ALT 8 (0-31) U/L Alkaline Phosphatase 61 (39-117) U/L Troponin I High Sens (<3.5-17.0) ng/L Total Protein 6.2 L (6.5-8.0) g/dL Albumin 3.8 (3.5-5.0) g/dL COVID-19 (GILLIAN) Positive A (Negative) COVID-19 Clin Com See Note Influenza Type A (TIFFANIE) Negative (Negative) Influenza Type B (TIFFANIE) Negative (Negative) Influenza A & B Note See Note Independent Interpretation I performed an independent interpretation of an: Plain X-Ray (My chest x-ray interpretation: No pneumonia) Radiology Impression Discussion of test interpretation with radiology: I have reviewed the radiologist's reading. Radiologist Impression: FINDINGS: Unchanged mild elevation left hemidiaphragm. Minimal curvilinear probable subsegmental atelectasis in the left lung base. No airspace consolidation identified. No pleural effusion seen. No pneumothorax. Unchanged calcified granulomas in the peripheral right mid and lower lung. Normal cardiomediastinal silhouette. No evidence of pulmonary edema. No acute osseous injury is seen. Calcific tendinopathy of the right rotator cuff noted incidentally. XR/XR chest 1V IMPRESSION: 1.? No acute pulmonary process. 2.? Mild elevation left hemidiaphragm with mild left basilar subsegmental atelectasis. External Record Review External record reviewed: Inpatient record (I reviewed psychiatrist's notes.) Critical Care Time Critical Care Time Critical Care Time: Yes Total Critical Care Time: 60 Attestation: I have personally provided critical care time. Time includes review of lab data, radiology results, discussion with consultants, and monitoring for potential decompensation. Intervention performed as documented. Discharge Plan Discharge Clinical Impression: COVID-19 Patient Disposition: Admitted As Inpatient Prescriptions: No Action trazodone 50 mg Tablet 50 mg PO BEDTIME MRX1 PRN (Reason: Insomnia) 30 Days Qty: 30 0RF lorazepam 0.5 mg Tablet 0.5 mg PO Q6H PRN (Reason: Anxiety) 30 Days Qty: 60 0RF haloperidol 1 mg tablet 1 mg PO TID Qty: 90 0RF clonidine HCl 0.1 mg tablet 1 tab PO BEDTIME 30 Days Qty: 30 0RF atenolol 25 mg tablet 2 tab PO DAILY 30 Days Qty: 60 0RF amlodipine 5 mg tablet 1 tab PO DAILY 30 Days Qty: 30 0RF simvastatin 20 mg tablet 1 tab PO BEDTIME 30 Days Qty: 30 0RF albuterol sulfate 90 mcg/actuation HFA aerosol inhaler 2 puff inhalation Q6H PRN (Reason: wheezing) Qty: 1 0RF lisinopril 40 mg tablet 1 tab PO BID 30 Days Qty: 60 0RF
[2022-04-17 17:43] LABS: COVID-19 Test Positive (Negative); IDNOW Serial# 55D5AD1C
[2022-04-17 17:44] LABS: Lactic Acid 1.2 mmol/L (0.5-2.0)
[2022-04-17 17:45] LABS: Hematocrit 40.6 % (37.0-47.0); Hemoglobin 13.4 g/dl (12.0-16.0); Mean Corpuscular Hemoglobin 30.8 pg (27.0-33.0); Mean Corpuscular Volume 93.3 fL (80.0-98.0); Mean Platelet Volume 14.2 fL (9.4-12.3); Platelet Count 113 X10*3/uL (160-400); Red Blood Count 4.35 X10*6/uL (4.20-5.50); Red Cell Distribution Width 14.7 % (11.0-16.0)
[2022-04-17 17:46] LABS: PLT ABN DIST 1; WBC ABN SCTR FOR CBC 1; White Blood Count 5.6 X10*3/uL (4.8-10.8)
[2022-04-17 17:49] LABS: Alanine Aminotransferase 8 U/L (0-31); Albumin Level 3.8 g/dL (3.5-5.0); Alkaline Phosphatase 61 U/L (39-117); Anion Gap 15 (12-20); Aspartate Amino Transferase 15 U/L (5-31); Bilirubin Direct 0.2 mg/dL (0.0-0.5); Bilirubin Total 0.7 mg/dL (0.0-1.0); Blood Urea Nitrogen 24 mg/dL (9-16); Calcium 9.6 mg/dL (8.4-10.2); Carbon Dioxide 31 mmol/L (22-29); Chloride 102 mmol/L (96-108); Creatinine Clr Calc Pharmacy 29.1; Estimated Glomerular Filt Rate 59; Glucose Random 95 mg/dL (60-115); Magnesium 1.9 mg/dL (1.6-2.6); Potassium 3.9 mmol/L (3.3-5.1); Sodium 144 mmol/L (135-145); Total Protein 6.2 g/dL (6.5-8.0)
[2022-04-17 17:51] LABS: IDNOW Serial# 9DB6401D; Influenza A Negative (Negative); Influenza B2 Negative (Negative)
[2022-04-17 17:58] LABS: Troponin-I High Sensitivity 15.1 ng/L (<3.5-17.0)
[2022-04-17 18:13] LABS: Band Neutrophils Percent 3 % (3-5); Eosinophils Absolute Manual 0.2 X10*3/uL (0.0-0.4); Eosinophils Percent Manual 3 % (0-4); Lymphocytes Absolute Manual 0.3 X10*3/uL (1.2-4.9); Lymphocytes Percent Manual 5 % (20-40); Monocytes Absolute Manual 0.5 X10*3/uL (0.1-1.2); Monocytes Percent Manual 9 % (2-11); Neutrophils Absolute Manual 4.6 X10*3/uL (2.0-8.3); Neutrophils Percent Manual 80 % (45-73)
[2022-04-17 18:15] LABS: Burr Cells 2+ (3-5) /OIF; Large Platelet PRESENT; Microcytosis 1+ (5-14) /OIF; Platelet Estimate DECREASED (NORMAL); Platelet Morphology Comment NOTED; RBC Morphology NOTED
[2022-04-17 18:16] LABS: Acanthocytes 1+ (0-2) /OIF; Basophilic Stippling 1+ (0-2) /OIF; Toxic Granulation PRESENT
[2022-04-17] MEDS: 0.9 % Sodium Chloride 1,000 ML 999 ML IVCONT (18:55)
[2022-04-17 20:00] VITALS: BP 126/55; PULSE 62; RESP 26; TEMP 36.8; O2SAT 94
[2022-04-17 21:41] LABS: VBG HCO3 35 mmol/L (22-26); VBG pCO2 55 mmHg; VBG pH 7.41 (7.32-7.43); VBG pO2 32 mmHg
[2022-04-17 22:00] VITALS: PULSE 60; RESP 25; O2SAT 95
--- NOTE | 2022-04-17 22:11 | PHA.MEDREC ---
Pharmacy Consult ? Medication Reconciliation Pharmacy has completed the medication reconciliation.
[2022-04-17 23:35] LABS: Venous Blood Gas Refer to POC result
--- NOTE | 2022-04-17 23:50 | PM.IMHP ---
History of Present Illness Date of Service: 04/17/22 Chief Complaint: weakness 87-year-old female with past medical history of dementia with psychotic disturbance, hypertension, presents the hospital with complaints of weakness, on low appetite. Of note patient was admitted and discharged from April 09 to from U unit for delirium and dementia with psychotic disturbance. Family were concerned that patient has been feeling progressively weak, not eating, and not doing too well therefore EMS was called. Patient herself reports significant weakness, denies any shortness of breath, no chest pain, no cough, no palpitations, no abdominal pain nausea or vomiting, no diarrhea constipation, no urinary symptoms and no lower extremity edema. On arrival to the ED patient hemodynamically stable with temp of 101.8 degrees, respiratory rate of 26, patient has been placed on nasal cannula 2 L but unclear if patient was hypoxic Labs are significant for WBC count of 5.6, otherwise unremarkable, UA shows positive leukocyte Estrace and WBC, Serology shows positive COVID-19 infection. Patient reports history of vaccination x1 Chest x-ray shows no acute pulmonary process, mild elevation of left hemidiaphragm with mild left basilar subsegmental atelectasis Review of Systems Review of Systems: Yes all other systems are reviewed and are negative [facility] Medical History (Updated 04/18/22 @ 07:01 by Boo Flores MD) Dementia with psychotic disturbance Social History Household Members: Children and Friend(s) Household Members Other:: Lives with daughter and platonic male friend. Housing: House Do you presently have visiting nurse or other home services: No Alcohol intake: never Patient Tobacco Use Status: Never used Tobacco Tobacco use type: Cigarette Cigarette Packs Per Day: 1 Cigarettes Per Day: 20.0 Years Smoked: Many. I stopped 17 years before I started again. Smoked in Last 30 Days: Yes Second Hand Smoke Exposure: Yes ( [place], but doesn't smoke like I do. ) Use of substances other than those prescribed or required for medical reasons: No Advance Directives: Yes Advance Directives on File: Yes Advance Directives Date on File: 04/16/22 service: No Meds Allergies Allergy/AdvReac Type Severity Reaction Status Date / Time Penicillins [PENICILLINS] Allergy Mild RASH Verified 04/09/22 05:54 Active Medications: Current Medications Acetaminophen (Acetaminophen 325 Mg Tablet) 650 mg PO Q6H PRN PRN Reason: Pain, Mild (Pain Scale 1-3) Enoxaparin Sodium (Enoxaparin Sodium 40 Mg/0.4 Ml Syringe) 40 mg SUBCUT Q24H MARLYN Ondansetron HCl (Ondansetron Hcl 4 Mg/2 Ml Vial) 4 mg IVPUSH Q8H PRN PRN Reason: Nausea and Vomiting Pharmacy Consult (Consult Rx Perform Med Rec) 1 each MISCELLANE ONCE PRN PRN Reason: Consult order Sodium Chloride (0.9 % Sodium Chloride Flush 3 Ml Syringe) 3 ml IVFLUSH QSHIFT MARLYN Physical Exam Vital Signs and Narrative: Vital Signs: Last Vital Signs Temp 98.2 F 04/17/22 20:00 Pulse 60 04/17/22 22:00 Resp 25 H 04/17/22 22:00 BP 126/55 L 04/17/22 20:00 Pulse Ox 95 04/17/22 22:00 O2 Del Method 04/17/22 22:00 O2 Flow Rate 2 04/17/22 22:00 BMI result Body Mass Index 15.0 Const: General: cooperative and no acute distress Orientation/consciousness: oriented to person and oriented to place Eyes: General: appearance normal, both eyes and all related structures Resp: Effort & Inspection: normal respiratory effort Auscultation: clear to auscultation bilaterally Cardio: Rate: regular rate Rhythm: regular rhythm GI: Palpation (GI): Soft to palpation Auscultation: normal bowel sounds Skin: General skin exam: no rashes or lesions noted Neuro: General: oriented to person and oriented to place Cognition (Neuro): normal cognition Extrem: General: Yes normal to inspection and Yes no pedal edema Results Labs 04/17/22 17:24 04/17/22 17:24 Labs: Laboratory Results - last 24 hr 04/17/22 04/17/22 04/17/22 17:23 17:23 17:24 MCV 93.3 MCH 30.8 MCHC 33.0 RDW 14.7 Plt Count 113 L MPV 14.2 H Immature Gran % (Auto) Cancelled Neut % (Auto) Cancelled Lymph % (Auto) Cancelled [place] % (Auto) Cancelled Eos % (Auto) Cancelled Baso % (Auto) Cancelled Lymph # (Auto) Cancelled [place] # (Auto) Cancelled Eos # (Auto) Cancelled Baso # (Auto) Cancelled Abs Immat Gran (auto) Cancelled Absolute Neuts (auto) Cancelled Absolute Nucleated RBC 0.000 Nucleated RBC % (auto) 0.0 Neutrophils % (Manual) 80 H Band Neutrophils % 3 Lymphocytes % (Manual) 5 L Monocytes % (Manual) 9 Eosinophils % (Manual) 3 Abs Neuts (Manual) 4.6 Lymphocytes # (Manual) 0.3 L Monocytes # (Manual) 0.5 Eosinophils # (Manual) 0.2 Toxic Granulation PRESENT Platelet Estimate DECREASED Large Platelets PRESENT Plt Morphology Comment NOTED RBC Morphology NOTED Basophilic Stippling 1+ (0-2) Microcytosis 1+ (5-14) [place] Cells 2+ (3-5) Acanthocytes (Spur) 1+ (0-2) VBG pH VBG pCO2 VBG pO2 VBG HCO3 VBG O2 Saturation VBG Base Excess Anion Gap Estim Creat Clear Calc Estimated GFR Random Glucose Lactic Acid 1.2 Calcium Magnesium Total Bilirubin Direct Bilirubin AST ALT Alkaline Phosphatase Troponin I High Sens 15.1 Total Protein Albumin COVID-19 (GILLIAN) COVID-19 Clin Com Influenza Type A (TIFFANIE) Influenza Type B (TIFFANIE) Influenza A & B Note 04/17/22 04/17/22 04/17/22 17:24 17:24 17:24 MCV MCH MCHC RDW Plt Count MPV Immature Gran % (Auto) Neut % (Auto) Lymph % (Auto) [place] % (Auto) Eos % (Auto) Baso % (Auto) Lymph # (Auto) [place] # (Auto) Eos # (Auto) Baso # (Auto) Abs Immat Gran (auto) Absolute Neuts (auto) Absolute Nucleated RBC Nucleated RBC % (auto) Neutrophils % (Manual) Band Neutrophils % Lymphocytes % (Manual) Monocytes % (Manual) Eosinophils % (Manual) Abs Neuts (Manual) Lymphocytes # (Manual) Monocytes # (Manual) Eosinophils # (Manual) Toxic Granulation Platelet Estimate Large Platelets Plt Morphology Comment RBC Morphology Basophilic Stippling Microcytosis [place] Cells Acanthocytes (Spur) VBG pH VBG pCO2 VBG pO2 VBG HCO3 VBG O2 Saturation VBG Base Excess Anion Gap 15 Estim Creat Clear Calc 29.1 Estimated GFR 59 Random Glucose 95 Lactic Acid Calcium 9.6 Magnesium 1.9 Total Bilirubin 0.7 Direct Bilirubin 0.2 AST 15 ALT 8 Alkaline Phosphatase 61 Troponin I High Sens Total Protein 6.2 L Albumin 3.8 COVID-19 (GILLIAN) Positive A COVID-19 Clin Com See Note Influenza Type A (TIFFANIE) Negative Influenza Type B (TIFFANIE) Negative Influenza A & B Note See Note 04/17/22 21:32 MCV MCH MCHC RDW Plt Count MPV Immature Gran % (Auto) Neut % (Auto) Lymph % (Auto) [place] % (Auto) Eos % (Auto) Baso % (Auto) Lymph # (Auto) [place] # (Auto) Eos # (Auto) Baso # (Auto) Abs Immat Gran (auto) Absolute Neuts (auto) Absolute Nucleated RBC Nucleated RBC % (auto) Neutrophils % (Manual) Band Neutrophils % Lymphocytes % (Manual) Monocytes % (Manual) Eosinophils % (Manual) Abs Neuts (Manual) Lymphocytes # (Manual) Monocytes # (Manual) Eosinophils # (Manual) Toxic Granulation Platelet Estimate Large Platelets Plt Morphology Comment RBC Morphology Basophilic Stippling Microcytosis [place] Cells Acanthocytes (Spur) VBG pH 7.41 VBG pCO2 55 VBG pO2 32 VBG HCO3 35 H VBG O2 Saturation 40.0 VBG Base Excess 9.0 Anion Gap Estim Creat Clear Calc Estimated GFR Random Glucose Lactic Acid Calcium Magnesium Total Bilirubin Direct Bilirubin AST ALT Alkaline Phosphatase Troponin I High Sens Total Protein Albumin COVID-19 (GILLIAN) COVID-19 Clin Com Influenza Type A (TIFFANIE) Influenza Type B (TIFFANIE) Influenza A & B Note Imaging Radiologist's Impressions: Impressions Chest X-Ray 04/17/22 18:32 IMPRESSION: 1. No acute pulmonary process. 2. Mild elevation left hemidiaphragm with mild left basilar subsegmental atelectasis. Assessment and Plan (1) COVID-19 virus infection: Status: Acute (2) UTI (urinary tract infection): Status: Acute (3) Generalized weakness: Status: Acute Plan 87-year-old who was recently discharged from [facility] for management of delirium and psychotic dementia presents to the hospital with weakness found to have COVID-19 infection acute UTI # acute COVID-19 infection - afebrile, no leukocytosis, no imaging suggestive of pneumonia - no hypoxia - will monitor respiratory symptoms # acute UTI - positive urine - given weakness will treat with IV antibiotics - follow cultures # generalized weakness - secondary to above - consider PT OT prior to discharge DVT prophylaxis: Lovenox Time Spent With Patient Time: Total time managing care of this patient today ____ minutes. Quality Stroke Does the patient have a stroke diagnosis?: No VTE Prior VTE?: No VTE Risk Level:: Medical - moderate - high VTE Device Contraindication: Treatment Not Indicated VTE Drug Contraindication: N/A - Med Ordered
[2022-04-18] VITALS (9 sets, daily range): BP systolic 129–194; BP diastolic 59–96; PULSE 62–74; RESP 16–26; TEMP 36.7–37.5; O2SAT 94–99
[2022-04-18] MEDS: 0.9 % Sodium Chloride Flush 3 ML SYRINGE IVFLUSH ×3 (00:07→23:14)
[2022-04-18] MEDS: Enoxaparin Sodium 30 MG/0.3 ML SYRINGE SUBCUT ×2 (00:07→23:12)
--- NOTE | 2022-04-18 00:22 | PC.NURSE ---
pt resting quietly, no apparent distress, no sob, denies any pain
--- NOTE | 2022-04-18 02:14 | PC.NURSE ---
med rec completed by pharmacy 04/17/22
[2022-04-18 02:22] LABS: Appearance Urine Clear; Color Urine Yellow; Glucose Urine UA Negative (Negative); Leukocyte Esterase Urine Moderate (2+) (Negative); Nitrite Urine Negative (Negative); UMIC TRIGGER UACC YES; Urine Blood Negative (Negative); Urine Ketones Negative (Negative); Urine Protein Trace mg/dL (Neg-Trace)
[2022-04-18 02:27] LABS: Bacteria Urine Trace (None Seen); Hyaline Casts Urine 0-2 /LPF (0-2); UACC Culture Trigger YES
[2022-04-18 02:43] LABS: Amphetamine Screen Urine Not Detected (Not Detect); Barbiturates, Urine Not Detected (Not Detect); Benzodiazepines Screen Urine Not Detected (Not Detect); Cannabinoid Screen Urine Not Detected (Not Detect); Cocaine Screen Urine Not Detected (Not Detect); Fentanyl, urine Not Detected (Not Detect); Opiate Screen Urine Not Detected (Not Detect); Phencyclidine Screen Urine Not Detected (Not Detect)
--- NOTE | 2022-04-18 05:20 | PC.NURSE ---
pt sleeping, no apparent distress, no sob, O2Sat assessed 97%
[2022-04-18 06:45] LABS: Basophils Percent Auto 0.2 % (0-2); Eosinophils Percent Auto 0.5 % (0-4); Hematocrit 38.7 % (37.0-47.0); Hemoglobin 12.9 g/dl (12.0-16.0); Imm Gran Abs Auto 0.01 X10*3/uL (0.00-0.03); Imm Gran Pct Auto 0.2 % (0.0-0.4); Lymphocytes Absolute Auto 0.8 X10*3/uL (1.2-4.9); Lymphocytes Percent Auto 19.8 % (20-40); MANUAL DIFF FLAG SCAN; Mean Corpuscular HGB Conc 33.3 g/dl (31.0-35.0); Mean Corpuscular Hemoglobin 31.6 pg (27.0-33.0); Mean Corpuscular Volume 94.9 fL (80.0-98.0); Mean Platelet Volume 13.7 fL (9.4-12.3); Monocytes Absolute Auto 0.8 X10*3/uL (0.1-1.2); Monocytes Percent Auto 20.5 % (2-11); Neutrophils Absolute Auto 2.4 x10*3/uL (2.0-8.3); Neutrophils Percent Auto 58.8 % (45-73); PLT CLUMP 1; Red Blood Count 4.08 X10*6/uL (4.20-5.50); SCAN SMEAR FLAG 1
[2022-04-18 06:50] LABS: Anion Gap 13 (12-20); Blood Urea Nitrogen 20 mg/dL (9-16); Calcium 8.8 mg/dL (8.4-10.2); Carbon Dioxide 27 mmol/L (22-29); Chloride 105 mmol/L (96-108); Creatinine Clr Calc Pharmacy 36.3; Estimated Glomerular Filt Rate > 60; Glucose Random 89 mg/dL (60-115); Potassium 3.9 mmol/L (3.3-5.1); Sodium 141 mmol/L (135-145)
[2022-04-18] MEDS: cefTRIAXone sodium 1 GM in 0.9 % Sodium Chloride 50 ML IV (07:23)
[2022-04-18 07:34] LABS: Platelet Count 100 X10*3/uL (160-400)
[2022-04-18 07:35] LABS: SLIDE REVIEW VERIFIED
--- NOTE | 2022-04-18 10:03 | MHC.EDTECH ---
patient used bedpan. full bed change and washed patient. she wanted to remain in her own night gown, not in a magnolia
--- NOTE | 2022-04-18 11:38 | P.PNIM_ITS ---
Subjective Subjective Date of Service: 04/18/22 Interval History: f/u on weakness d/t covid no hypoxia, feels weak Physical Exam Vital Signs: Vital Signs: Last Vital Signs Temp 98.5 F 04/18/22 09:16 Pulse 74 04/18/22 09:16 Resp 16 04/18/22 09:16 BP 175/79 H 04/18/22 09:16 Pulse Ox 94 04/18/22 09:16 O2 Del Method 04/18/22 09:16 O2 Flow Rate 1.5 04/18/22 09:16 BMI result Body Mass Index 15.0 Const: Other: General: AO X 3, no acute distress Resp: CTA bilateral CVS: S1,S2,RRR GI: +BS, NT, no distention Skin: No rash Neuro: motor grossly intact Psych: appropriate affect Objective Data Active Medications Acetaminophen (Acetaminophen 325 Mg Tablet) 650 mg PO Q6H PRN PRN Reason: Pain, Mild (Pain Scale 1-3) Enoxaparin Sodium (Enoxaparin Sodium 30 Mg/0.3 Ml Syringe) 30 mg SUBCUT Q24H [facility] Last Admin: 04/18/22 00:07 Dose: 30 mg Documented By: GARRISON Ceftriaxone Sodium 1 gm/ (Sodium Chloride) 50 mls @ 100 mls/hr IV Q24H [facility] Last Admin: 04/18/22 07:23 Dose: 100 mls/hr Documented By: GARRISON Ondansetron HCl (Ondansetron Hcl 4 Mg/2 Ml Vial) 4 mg IVPUSH Q8H PRN PRN Reason: Nausea and Vomiting Pharmacy Consult (Consult Rx Perform Med Rec) 1 each MISCELLANE ONCE PRN PRN Reason: Consult order Sodium Chloride (0.9 % Sodium Chloride Flush 3 Ml Syringe) 3 ml IVFLUSH QSHIFT [facility] Last Admin: 04/18/22 09:09 Dose: Not Given Documented By: ERICA Non-Admin Reason: IV Running Labs 04/18/22 06:09 04/18/22 06:09 Labs: Laboratory Results - last 24 hr 04/17/22 04/17/22 04/17/22 17:23 17:23 17:24 MCV 93.3 MCH 30.8 MCHC 33.0 RDW 14.7 Plt Count 113 L MPV 14.2 H Immature Gran % (Auto) Cancelled Neut % (Auto) Cancelled Lymph % (Auto) Cancelled Gregory % (Auto) Cancelled Eos % (Auto) Cancelled Baso % (Auto) Cancelled Lymph # (Auto) Cancelled Gregory # (Auto) Cancelled Eos # (Auto) Cancelled Baso # (Auto) Cancelled Abs Immat Gran (auto) Cancelled Absolute Neuts (auto) Cancelled Absolute Nucleated RBC 0.000 Nucleated RBC % (auto) 0.0 Neutrophils % (Manual) 80 H Band Neutrophils % 3 Lymphocytes % (Manual) 5 L Monocytes % (Manual) 9 Eosinophils % (Manual) 3 Abs Neuts (Manual) 4.6 Lymphocytes # (Manual) 0.3 L Monocytes # (Manual) 0.5 Eosinophils # (Manual) 0.2 Toxic Granulation PRESENT Platelet Estimate DECREASED Large Platelets PRESENT Plt Morphology Comment NOTED RBC Morphology NOTED Basophilic Stippling 1+ (0-2) Microcytosis 1+ (5-14) [place] Cells 2+ (3-5) Acanthocytes (Spur) 1+ (0-2) Smear Tech's Comments VBG pH VBG pCO2 VBG pO2 VBG HCO3 VBG O2 Saturation VBG Base Excess Anion Gap Estim Creat Clear Calc Estimated GFR Random Glucose Lactic Acid 1.2 Calcium Magnesium Total Bilirubin Direct Bilirubin AST ALT Alkaline Phosphatase Troponin I High Sens 15.1 Total Protein Albumin Urine Color Urine Appearance Urine pH Ur Specific Colt Urine Protein Urine Glucose (UA) Urine Ketones Urine Blood Urine Nitrite Ur Leukocyte Esterase Urine RBC Urine WBC Ur Squamous Epith Cells Urine Bacteria Hyaline Casts Urine Opiates Screen Urine Fentanyl Screen Ur Barbiturates Screen Ur Phencyclidine Scrn Ur Amphetamines Screen U Benzodiazepines Scrn Urine Cocaine Screen U Marijuana (THC) Screen COVID-19 (GILLIAN) COVID-19 Clin Com Influenza Type A (TIFFANIE) Influenza Type B (TIFFANIE) Influenza A & B Note 04/17/22 04/17/22 04/17/22 17:24 17:24 17:24 MCV MCH MCHC RDW Plt Count MPV Immature Gran % (Auto) Neut % (Auto) Lymph % (Auto) Gregory % (Auto) Eos % (Auto) Baso % (Auto) Lymph # (Auto) Gregory # (Auto) Eos # (Auto) Baso # (Auto) Abs Immat Gran (auto) Absolute Neuts (auto) Absolute Nucleated RBC Nucleated RBC % (auto) Neutrophils % (Manual) Band Neutrophils % Lymphocytes % (Manual) Monocytes % (Manual) Eosinophils % (Manual) Abs Neuts (Manual) Lymphocytes # (Manual) Monocytes # (Manual) Eosinophils # (Manual) Toxic Granulation Platelet Estimate Large Platelets Plt Morphology Comment RBC Morphology Basophilic Stippling Microcytosis Vera Cells Acanthocytes (Spur) Smear Tech's Comments VBG pH VBG pCO2 VBG pO2 VBG HCO3 VBG O2 Saturation VBG Base Excess Anion Gap 15 Estim Creat Clear Calc 29.1 Estimated GFR 59 Random Glucose 95 Lactic Acid Calcium 9.6 Magnesium 1.9 Total Bilirubin 0.7 Direct Bilirubin 0.2 AST 15 ALT 8 Alkaline Phosphatase 61 Troponin I High Sens Total Protein 6.2 L Albumin 3.8 Urine Color Urine Appearance Urine pH Ur Specific Colt Urine Protein Urine Glucose (UA) Urine Ketones Urine Blood Urine Nitrite Ur Leukocyte Esterase Urine RBC Urine WBC Ur Squamous Epith Cells Urine Bacteria Hyaline Casts Urine Opiates Screen Urine Fentanyl Screen Ur Barbiturates Screen Ur Phencyclidine Scrn Ur Amphetamines Screen U Benzodiazepines Scrn Urine Cocaine Screen U Marijuana (THC) Screen COVID-19 (GILLIAN) Positive A COVID-19 Clin Com See Note Influenza Type A (TIFFANIE) Negative Influenza Type B (TIFFANIE) Negative Influenza A & B Note See Note 04/17/22 04/18/22 04/18/22 21:32 02:13 02:13 MCV MCH MCHC RDW Plt Count MPV Immature Gran % (Auto) Neut % (Auto) Lymph % (Auto) Gregory % (Auto) Eos % (Auto) Baso % (Auto) Lymph # (Auto) Gregory # (Auto) Eos # (Auto) Baso # (Auto) Abs Immat Gran (auto) Absolute Neuts (auto) Absolute Nucleated RBC Nucleated RBC % (auto) Neutrophils % (Manual) Band Neutrophils % Lymphocytes % (Manual) Monocytes % (Manual) Eosinophils % (Manual) Abs Neuts (Manual) Lymphocytes # (Manual) Monocytes # (Manual) Eosinophils # (Manual) Toxic Granulation Platelet Estimate Large Platelets Plt Morphology Comment RBC Morphology Basophilic Stippling Microcytosis [place] Cells Acanthocytes (Spur) Smear Tech's Comments VBG pH 7.41 VBG pCO2 55 VBG pO2 32 VBG HCO3 35 H VBG O2 Saturation 40.0 VBG Base Excess 9.0 Anion Gap Estim Creat Clear Calc Estimated GFR Random Glucose Lactic Acid Calcium Magnesium Total Bilirubin Direct Bilirubin AST ALT Alkaline Phosphatase Troponin I High Sens Total Protein Albumin Urine Color Yellow Urine Appearance Clear Urine pH 6.0 Ur Specific Colt 1.020 Urine Protein Trace Urine Glucose (UA) Negative Urine Ketones Negative Urine Blood Negative Urine Nitrite Negative Ur Leukocyte Esterase Moderate (2+) H Urine RBC 3-5 H Urine WBC 6-10 H Ur Squamous Epith Cells 3-5 Urine Bacteria Trace Hyaline Casts 0-2 Urine Opiates Screen Not Detected Urine Fentanyl Screen Not Detected Ur Barbiturates Screen Not Detected Ur Phencyclidine Scrn Not Detected Ur Amphetamines Screen Not Detected U Benzodiazepines Scrn Not Detected Urine Cocaine Screen Not Detected U Marijuana (THC) Screen Not Detected COVID-19 (GILLIAN) COVID-19 Clin Com Influenza Type A (TIFFANIE) Influenza Type B (TIFFANIE) Influenza A & B Note 04/18/22 04/18/22 06:09 06:09 MCV 94.9 MCH 31.6 MCHC 33.3 RDW 15.0 Plt Count 100 L MPV 13.7 H Immature Gran % (Auto) 0.2 Neut % (Auto) 58.8 Lymph % (Auto) 19.8 L Gregory % (Auto) 20.5 H Eos % (Auto) 0.5 Baso % (Auto) 0.2 Lymph # (Auto) 0.8 L Gregory # (Auto) 0.8 Eos # (Auto) 0.0 Baso # (Auto) 0.0 Abs Immat Gran (auto) 0.01 Absolute Neuts (auto) 2.4 Absolute Nucleated RBC 0.000 Nucleated RBC % (auto) 0.0 Neutrophils % (Manual) Band Neutrophils % Lymphocytes % (Manual) Monocytes % (Manual) Eosinophils % (Manual) Abs Neuts (Manual) Lymphocytes # (Manual) Monocytes # (Manual) Eosinophils # (Manual) Toxic Granulation Platelet Estimate Large Platelets Plt Morphology Comment RBC Morphology Basophilic Stippling Microcytosis Vera Cells Acanthocytes (Spur) Smear Tech's Comments VERIFIED VBG pH VBG pCO2 VBG pO2 VBG HCO3 VBG O2 Saturation VBG Base Excess Anion Gap 13 Estim Creat Clear Calc 36.3 Estimated GFR > 60 Random Glucose 89 Lactic Acid Calcium 8.8 D Magnesium Total Bilirubin Direct Bilirubin AST ALT Alkaline Phosphatase Troponin I High Sens Total Protein Albumin Urine Color Urine Appearance Urine pH Ur Specific Colt Urine Protein Urine Glucose (UA) Urine Ketones Urine Blood Urine Nitrite Ur Leukocyte Esterase Urine RBC Urine WBC Ur Squamous Epith Cells Urine Bacteria Hyaline Casts Urine Opiates Screen Urine Fentanyl Screen Ur Barbiturates Screen Ur Phencyclidine Scrn Ur Amphetamines Screen U Benzodiazepines Scrn Urine Cocaine Screen U Marijuana (THC) Screen COVID-19 (GILLIAN) COVID-19 Clin Com Influenza Type A (TIFFANIE) Influenza Type B (TIFFANIE) Influenza A & B Note Assessment and Plan (1) COVID-19 virus infection: Status: Acute (2) UTI (urinary tract infection): Status: Acute (3) Generalized weakness: Status: Acute Plan 87-year-old who was recently discharged from [facility] for management of delirium and psychotic dementia presents to the hospital with weakness found to have COVID-19 infection acute UTI # acute COVID-19 infection - afebrile, no leukocytosis, no imaging suggestive of pneumonia - no hypoxia - will monitor respiratory symptoms, doesn't oxygen take of # acute UTI - positive urine - given weakness will treat with IV antibiotics - follow cultures # generalized weakness - secondary to uti and covid - consider PT OT prior to discharge DVT prophylaxis:? Lovenox Time Spent With Patient Time: Total time managing care of this patient today ____ minutes. Quality Stroke Does the patient have a stroke diagnosis?: No VTE Prior VTE?: No VTE Risk Level:: Medical - moderate - high VTE Device Contraindication: Treatment Not Indicated VTE Drug Contraindication: N/A - Med Ordered
--- NOTE | 2022-04-18 11:38 | MHC.EDTECH ---
applied a purewick. full bed change and washed the pt
--- NOTE | 2022-04-18 12:16 | P.CDIC_ITS ---
CDI Concurrent Query Documentation Clarification: PHYSICIAN'S DOCUMENTATION REQUEST Date of Query: 04/18/22 1216 Patient Name: Emily Moore Admit Date: 04/17/22 Dear Doctor, A review of the medical record indicates additional documentation may be needed. Please review below and update the documentation accordingly. Clinical Indicators: Risk Factors/Clinical Indicators/Treatments Patient noted to have a BMI of 15.0 5' 5 in height 40.823kg. Based on the above, could you clarify in the Progress Notes the appropriate diagnosis, if significant, that supports the above abnormalities and additional evaluation, monitoring, and/or treatment rendered: * Underweight * Other, please specify if known * Unable to determine Use of terms such as suspected, likely, concern for, or probable (associated with a specific diagnosis that is being evaluated, monitored, or treated as if it exists) are acceptable and can be coded in the inpatient setting, when documented at the time of discharge. Thank you, Anitha Wu [facility], CDIS Extension: [phone] Please use your independent medical judgment in providing your response. THIS QUERY IS PART OF THE PERMANENT MEDICAL RECORD Provider Response: Morbid Obesity Other Diagnosis: Class 3 morbid obesity
--- NOTE | 2022-04-18 12:28 | MHC.CM.PN ---
pt is covid positive has own ride home lives with dgter is covid perix x1
--- NOTE | 2022-04-18 15:00 | MHC.EDTECH ---
this pct assumed care of pt at 1500 ,patient watching television ,vitals sign taken ,this pct asked pt if she needed anything pt said no every thing was fine ,call mccann within reach .
--- NOTE | 2022-04-18 20:08 | MHC.EDTECH ---
1999 rounding done ,vitals sign taken ,rn mani is aware of pt hbp ,pt ate 100 % of supper ,drank 360 ml fluids .put out 500 ml urine .
--- NOTE | 2022-04-18 21:12 | PC.NURSE ---
Pt to inpatient bed assignment at this time. Hospitalist Sandra aware of Bp states pt can be given meds for BP when she arrives to inpatient bed. Lupillo FONSECA on inpatient floor aware.
[2022-04-18] MEDS: hydrALAZINE HCl 20 MG/ML VIAL 5 MG IVPUSH (21:33)
[2022-04-19] VITALS: BP 156/65; PULSE 65; TEMP 37.1; O2SAT 97
[2022-04-19 04:00] VITALS: BP 155/79; PULSE 94; RESP 20; TEMP 36.6; O2SAT 98
[2022-04-19] MEDS: cefTRIAXone sodium 1 GM in 0.9 % Sodium Chloride 50 ML IV (06:01)
[2022-04-19 07:54] VITALS: BP 164/82; PULSE 77; RESP 20; TEMP 36.7; O2SAT 98
--- NOTE | 2022-04-19 11:40 | HO.PM.IMPN ---
Subjective Subjective Date of Service: 04/19/22 Interval History: f/u on weakness d/t covid no hypoxia, feels weak Physical Exam Vital Signs: Vital Signs: Last Vital Signs Temp 98.1 F 04/19/22 07:54 Pulse 77 04/19/22 07:54 Resp 20 04/19/22 07:54 BP 164/82 H 04/19/22 07:54 Pulse Ox 98 04/19/22 07:54 O2 Del Method 04/19/22 07:54 O2 Flow Rate 2 04/19/22 07:54 BMI result Body Mass Index 15.0 Const: Other: General: AO X 3, no acute distress Resp: CTA bilateral CVS: S1,S2,RRR GI: +BS, NT, no distention Skin: No rash Neuro: motor grossly intact Psych: appropriate affect Objective Data Active Medications Acetaminophen (Acetaminophen 325 Mg Tablet) 650 mg PO Q6H PRN PRN Reason: Pain, Mild (Pain Scale 1-3) Enoxaparin Sodium (Enoxaparin Sodium 30 Mg/0.3 Ml Syringe) 30 mg SUBCUT Q24H [facility] Last Admin: 04/18/22 23:12 Dose: 30 mg Documented By: MIL Ceftriaxone Sodium 1 gm/ (Sodium Chloride) 50 mls @ 100 mls/hr IV Q24H [facility] Last Infusion: 04/19/22 06:39 Dose: 0 mls/hr Documented By: MIL Ondansetron HCl (Ondansetron Hcl 4 Mg/2 Ml Vial) 4 mg IVPUSH Q8H PRN PRN Reason: Nausea and Vomiting Pharmacy Consult (Consult Rx Perform Med Rec) 1 each MISCELLANE ONCE PRN PRN Reason: Consult order Sodium Chloride (0.9 % Sodium Chloride Flush 3 Ml Syringe) 3 ml IVFLUSH QSHIFT [facility] Last Admin: 04/18/22 23:14 Dose: 3 ml Documented By: MIL Labs 04/18/22 06:09 04/18/22 06:09 Microbiology Microbiology Results: Microbiology 04/17/22 21:25 Blood Culture - Preliminary Blood - Venous No growth after 24 hours. 04/17/22 17:30 Blood Culture - Preliminary Blood - Venous No growth after 24 hours. Assessment and Plan (1) COVID-19 virus infection: Status: Acute (2) UTI (urinary tract infection): Status: Acute (3) Generalized weakness: Status: Acute Plan 87-year-old who was recently discharged from [facility] for management of delirium and psychotic dementia presents to the hospital with weakness found to have COVID-19 infection acute UTI # acute COVID-19 infection - afebrile, no leukocytosis, no imaging suggestive of pneumonia - no hypoxia - will monitor respiratory symptoms, wean O2 # acute UTI - positive urine - given weakness will treat with IV antibiotics - follow cultures # generalized weakness - secondary to uti and covid - PT eval prior to dc #moderate protein calory malnutrition: ensure DVT prophylaxis:? Lovenox Time Spent With Patient Time: Total time managing care of this patient today ____ minutes. Quality Stroke Does the patient have a stroke diagnosis?: No VTE Prior VTE?: No VTE Risk Level:: Medical - moderate - high VTE Device Contraindication: Treatment Not Indicated VTE Drug Contraindication: N/A - Med Ordered
[2022-04-19] MEDS: 0.9 % Sodium Chloride Flush 3 ML SYRINGE IVFLUSH ×3 (12:08→22:50)
[2022-04-19 15:30] VITALS: BP 146/71; PULSE 87; RESP 18; TEMP 37.2; O2SAT 97
[2022-04-19 20:03] VITALS: BP 147/67; PULSE 72; RESP 18; TEMP 37.1; O2SAT 96
[2022-04-19] MEDS: Enoxaparin Sodium 30 MG/0.3 ML SYRINGE SUBCUT (22:50)
[2022-04-19 23:21] VITALS: BP 158/64; PULSE 65; RESP 18; TEMP 36.6; O2SAT 98
[2022-04-20] MEDS: cefTRIAXone sodium 1 GM in 0.9 % Sodium Chloride 50 ML IV (06:15)
[2022-04-20 07:19] VITALS: BP 153/72; PULSE 71; RESP 12; TEMP 36.4; O2SAT 95
--- NOTE | 2022-04-20 09:17 | P.PNIM_ITS ---
Subjective Subjective Date of Service: 04/20/22 Interval History: f/u on weakness d/t covid no hypoxia, feels weak, not eating much at all accordiong to nursing Physical Exam Vital Signs: Vital Signs: Last Vital Signs Temp 97.6 F 04/20/22 07:19 Pulse 71 04/20/22 07:19 Resp 12 04/20/22 07:19 BP 153/72 H 04/20/22 07:19 Pulse Ox 95 04/20/22 07:19 O2 Del Method 04/20/22 07:19 O2 Flow Rate 2 04/20/22 07:19 BMI result Body Mass Index 15.0 Const: Other: General: AO X 3, no acute distress Resp: CTA bilateral CVS: S1,S2,RRR GI: +BS, NT, no distention Skin: No rash Neuro: motor grossly intact Psych: appropriate affect Objective Data Active Medications Acetaminophen (Acetaminophen 325 Mg Tablet) 650 mg PO Q6H PRN PRN Reason: Pain, Mild (Pain Scale 1-3) Enoxaparin Sodium (Enoxaparin Sodium 30 Mg/0.3 Ml Syringe) 30 mg SUBCUT Q24H [facility] Last Admin: 04/19/22 22:50 Dose: 30 mg Documented By: MIL Ceftriaxone Sodium 1 gm/ (Sodium Chloride) 50 mls @ 100 mls/hr IV Q24H [facility] Last Infusion: 04/20/22 07:00 Dose: 0 mls/hr Documented By: EMELY Ondansetron HCl (Ondansetron Hcl 4 Mg/2 Ml Vial) 4 mg IVPUSH Q8H PRN PRN Reason: Nausea and Vomiting Pharmacy Consult (Consult Rx Perform Med Rec) 1 each MISCELLANE ONCE PRN PRN Reason: Consult order Sodium Chloride (0.9 % Sodium Chloride Flush 3 Ml Syringe) 3 ml IVFLUSH QSHIFT [facility] Last Admin: 04/19/22 22:50 Dose: 3 ml Documented By: MIL Labs 04/18/22 06:09 04/18/22 06:09 Microbiology Microbiology Results: Microbiology 04/17/22 21:25 Blood Culture - Preliminary Blood - Venous No growth after 48 hours. 04/17/22 17:30 Blood Culture - Preliminary Blood - Venous No growth after 48 hours. 04/18/22 Unknown Urine Culture - Final Urine clean catch - Urine gonzalez top Assessment and Plan (1) Generalized weakness: Status: Acute (2) COVID-19 virus infection: Status: Acute (3) Dementia with psychotic disturbance: Status: Acute Plan 87-year-old who was recently discharged from [facility] for management of delirium and psychotic dementia presents to the hospital with weakness found to have COVID-19 infection acute UTI # acute COVID-19 infection - afebrile, no leukocytosis, no imaging suggestive of pneumonia - no hypoxia - will monitor respiratory symptoms, wean O2 # acute UTI, culture negative, DC Abx - # generalized weakness, adult failure to thrive - secondary to uti and covid - PT eval prior to dc #moderate protein calory malnutrition: ensure poor prognosis with dementia, malnutrition, will discuss paliative care with family DVT prophylaxis:? Lovenox Time Spent With Patient Time: Total time managing care of this patient today ____ minutes. Quality Stroke Does the patient have a stroke diagnosis?: No VTE Prior VTE?: No VTE Risk Level:: Medical - moderate - high VTE Device Contraindication: Treatment Not Indicated VTE Drug Contraindication: N/A - Med Ordered
[2022-04-20] MEDS: 0.9 % Sodium Chloride Flush 3 ML SYRINGE IVFLUSH ×3 (10:15→22:47)
[2022-04-20 15:34] VITALS: BP 181/80; PULSE 106; RESP 30; TEMP 37; O2SAT 88
--- NOTE | 2022-04-20 18:07 | PM.EVENT ---
Event Note Date of Service: 04/21/22 Event Note: Pt with increased difficutly breathing and decreased oxygen saturation..Overall not looking good, I discussed clinical course with daughter Arleth (HCP) and she understand pt's condition and prognosis to be poor as she stated that she looked horible when the ambulance came to pick her up She doesn't want her to be in pain and to keep her comfortable but at the same time open to life putting her on life support thefore still full code. And further discussion to take place tomorrow. Time Spent With Patient Time: Total time managing care of this patient today ____ minutes.
--- NOTE | 2022-04-20 18:14 | PC.NURSE ---
spoke with Daughter, Arleth, also health care proxy, by Phone about patients refusing meals and drinks, 02 sats of 88% on 3l and increased respiration of 32. Daughter was agreeable with suggestion by Dr Peguero to provide comfort to patient with RX of morphine and throat lozenges. Will request order from Dr Peguero.
[2022-04-20 19:44] VITALS: BP 152/87; PULSE 94; RESP 18; TEMP 37.1; O2SAT 92
[2022-04-20] MEDS: Enoxaparin Sodium 30 MG/0.3 ML SYRINGE SUBCUT (22:46)
[2022-04-21] VITALS: BP 122/65; PULSE 85; RESP 20; TEMP 36.9; O2SAT 93
[2022-04-21 03:50] VITALS: BP 143/70; PULSE 65; RESP 18; TEMP 37.2; O2SAT 93
[2022-04-21] MEDS: cefTRIAXone sodium 1 GM in 0.9 % Sodium Chloride 50 ML IV (06:39)
[2022-04-21 07:43] VITALS: BP 150/77; PULSE 81; RESP 20; TEMP 36.7; O2SAT 95
--- NOTE | 2022-04-21 11:18 | P.PNIM_ITS ---
Subjective Subjective Date of Service: 04/21/22 Interval History: f/u on weakness d/t covid Hypoxia with O2 droping to 88 yesterday, but better today, pt is more alert, no trouble brething and comfortable, interacting with family at bedside Physical Exam Vital Signs: Vital Signs: Last Vital Signs Temp 98.0 F 04/21/22 07:43 Pulse 81 04/21/22 07:43 Resp 20 04/21/22 07:43 BP 150/77 H 04/21/22 07:43 Pulse Ox 95 04/21/22 07:43 O2 Del Method 04/21/22 07:43 O2 Flow Rate 3 04/21/22 07:43 BMI result Body Mass Index 15.0 Const: Other: General: AO X 3, no acute distress Resp: CTA bilateral CVS: S1,S2,RRR GI: +BS, NT, no distention Skin: No rash Neuro: motor grossly intact Psych: appropriate affect Objective Data Active Medications Acetaminophen (Acetaminophen 325 Mg Tablet) 650 mg PO Q6H PRN PRN Reason: Pain, Mild (Pain Scale 1-3) Benzocaine (Throat Lozenge, Medicated Lozenge) 1 lozenge MUCOUS MEM Q2H PRN PRN Reason: Sore Throat Enoxaparin Sodium (Enoxaparin Sodium 30 Mg/0.3 Ml Syringe) 30 mg SUBCUT Q24H [facility] Last Admin: 04/20/22 22:46 Dose: 30 mg Documented By: MIL Ceftriaxone Sodium 1 gm/ (Sodium Chloride) 50 mls @ 100 mls/hr IV Q24H [facility] Last Infusion: 04/21/22 08:14 Dose: 0 mls/hr Documented By: DEUCE Morphine Sulfate (Morphine Sulfate 2 Mg/Ml Cartridge) 1 mg IVPUSH Q3H PRN; Protocol PRN Reason: for respiratory distress Ondansetron HCl (Ondansetron Hcl 4 Mg/2 Ml Vial) 4 mg IVPUSH Q8H PRN PRN Reason: Nausea and Vomiting Pharmacy Consult (Consult Rx Perform Med Rec) 1 each MISCELLANE ONCE PRN PRN Reason: Consult order Sodium Chloride (0.9 % Sodium Chloride Flush 3 Ml Syringe) 3 ml IVFLUSH QSHIFT [facility] Last Admin: 04/21/22 08:15 Dose: Not Given Documented By: DEUCE Non-Admin Reason: Previously Administered Labs 04/18/22 06:09 04/18/22 06:09 Assessment and Plan (1) Generalized weakness: Status: Acute (2) UTI (urinary tract infection): Status: Acute (3) COVID-19 virus infection: Status: Acute Plan 87-year-old who was recently discharged from [facility] for management of delirium and psychotic dementia presents to the hospital with weakness found to have COVID-19 infection acute UTI # acute COVID-19 infection - afebrile, no leukocytosis, no imaging suggestive of pneumonia -Decadron 6 mg daily - will monitor respiratory symptoms, wean O2 # acute UTI, culture negative, DC Abx # generalized weakness, adult failure to thrive - secondary to uti and covid - PT eval prior to dc #moderate protein calory malnutrition: ensure added, poor prognosis with dementia, malnutrition, will discuss paliative care with family DVT prophylaxis:? Lovenox Patient is doing much better, family updated at bedise, goal is for them to take her home Time Spent With Patient Time: Total time managing care of this patient today ____ minutes. Quality Stroke Does the patient have a stroke diagnosis?: No VTE Prior VTE?: No VTE Risk Level:: Medical - moderate - high VTE Device Contraindication: Treatment Not Indicated VTE Drug Contraindication: N/A - Med Ordered
--- NOTE | 2022-04-21 11:58 | MHC.CM.PN ---
Per MD rounds No discharge today. MD to discuss Hospice with the family. PT rec 04/18 / vs Home w services. Family would like to take the patient home. DP Home with services. Family vs BLS transport.
[2022-04-21 11:59] VITALS: BMI 15.0
--- NOTE | 2022-04-21 12:03 | MHC.CLN ---
PT IS MODERATELY MALNOURISHED PT WITH MILDLY DEPLETED SUBCUTANEOUS FAT AND MUSCLE MASS PT PREVIOUSLY ADMITTED ON [facility] FLOOR WITH NUTRITION ASSESSMENT DATED 04/11/22 DIET RX: REGULAR-APPROPRIATE PT RECEPTIVE TO DRINKING ENSURE TO INCREASE KCALS (PREFERS VANILLA) SUPP TO PROVIDE 700KCALS, 40G PROTEIN RECOMMEND CHANGING CURRENT SUPPLEMENT ENSURE CLEAR TID TO ENSURE BID MONITOR PO INTAKE CLOSELY SEE ALSO FULL CLINICAL NUTRITION ASSESSMENT
[2022-04-21] MEDS: dexAMETHasone sod phosphate 4 MG/ML VIAL 6 MG IVPUSH (12:36)
[2022-04-21] MEDS: 0.9 % Sodium Chloride Flush 3 ML SYRINGE IVFLUSH ×2 (15:24→22:46)
[2022-04-21 15:25] VITALS: BP 142/71; PULSE 89; RESP 18; TEMP 37.1; O2SAT 91
[2022-04-21 19:35] VITALS: BP 128/66; PULSE 64; RESP 20; TEMP 37.1; O2SAT 95
[2022-04-21] MEDS: Enoxaparin Sodium 30 MG/0.3 ML SYRINGE SUBCUT (22:46)
[2022-04-21 23:33] VITALS: BP 137/76; PULSE 59; RESP 18; TEMP 36.6; O2SAT 96
[2022-04-22] VITALS (11 sets, daily range): BP systolic 128–177; BP diastolic 63–85; PULSE 58–71; RESP 17–20; TEMP 36.2–37.1; O2SAT 88–98
--- NOTE | 2022-04-22 09:54 | P.PNIM_ITS ---
Subjective Subjective Date of Service: 04/22/22 Interval History: f/u on weakness d/t covid She is doing much better today, off oxygen. Physical Exam Vital Signs: Vital Signs: Last Vital Signs Temp 97.7 F 04/22/22 07:43 Pulse 61 04/22/22 07:43 Resp 18 04/22/22 07:43 BP 174/82 H 04/22/22 07:43 Pulse Ox 90 L 04/22/22 08:19 O2 Del Method 04/22/22 08:19 O2 Flow Rate 2 04/22/22 07:43 BMI result Body Mass Index 15.0 Const: Other: General: AO X 3, no acute distress Resp: CTA bilateral CVS: S1,S2,RRR GI: +BS, NT, no distention Skin: No rash Neuro: motor grossly intact Psych: appropriate affect Objective Data Active Medications Acetaminophen (Acetaminophen 325 Mg Tablet) 650 mg PO Q6H PRN PRN Reason: Pain, Mild (Pain Scale 1-3) Benzocaine (Throat Lozenge, Medicated Lozenge) 1 lozenge MUCOUS MEM Q2H PRN PRN Reason: Sore Throat Dexamethasone Sodium Phosphate (Dexamethasone Sod Phosphate 4 Mg/Ml Vial) 6 mg IVPUSH DAILY [facility] Last Admin: 04/21/22 12:36 Dose: 6 mg Documented By: JOSE Enoxaparin Sodium (Enoxaparin Sodium 30 Mg/0.3 Ml Syringe) 30 mg SUBCUT Q24H [facility] Last Admin: 04/21/22 22:46 Dose: 30 mg Documented By: HUGO Morphine Sulfate (Morphine Sulfate 2 Mg/Ml Cartridge) 1 mg IVPUSH Q3H PRN; Protocol PRN Reason: for respiratory distress Ondansetron HCl (Ondansetron Hcl 4 Mg/2 Ml Vial) 4 mg IVPUSH Q8H PRN PRN Reason: Nausea and Vomiting Pharmacy Consult (Consult Rx Perform Med Rec) 1 each MISCELLANE ONCE PRN PRN Reason: Consult order Sodium Chloride (0.9 % Sodium Chloride Flush 3 Ml Syringe) 3 ml IVFLUSH QSHIFT [facility] Last Admin: 04/21/22 22:46 Dose: 3 ml Documented By: HUGO Labs 04/18/22 06:09 04/18/22 06:09 Assessment and Plan (1) Generalized weakness: Status: Acute (2) UTI (urinary tract infection): Status: Acute (3) COVID-19 virus infection: Status: Acute Plan 87-year-old who was recently discharged from [facility] for management of delirium and psychotic dementia presents to the hospital with weakness found to have COVID-19 infection acute UTI # acute COVID-19 infection, mild hypoxia but improved - afebrile, no leukocytosis, no imaging suggestive of pneumonia -Decadron 6 mg daily - will monitor respiratory symptoms, wean O2 # acute UTI, culture negative, completed Abx # generalized weakness, adult failure to thrive - secondary to uti and covid - PT eval prior to dc #moderate protein calory malnutrition: ensure added, poor prognosis with dementia, malnutrition, paliative care discussed with family they are not ready DVT prophylaxis:? Lovenox Patient is doing much better, family updated at [facility], goal is for them to take her home Time Spent With Patient Time: Total time managing care of this patient today ____ minutes. Quality Stroke Does the patient have a stroke diagnosis?: No VTE Prior VTE?: No VTE Risk Level:: Medical - moderate - high VTE Device Contraindication: Treatment Not Indicated VTE Drug Contraindication: N/A - Med Ordered
[2022-04-22] MEDS: 0.9 % Sodium Chloride Flush 3 ML SYRINGE IVFLUSH ×2 (10:28→15:42)
[2022-04-22] MEDS: dexAMETHasone sod phosphate 4 MG/ML VIAL 6 MG IVPUSH (10:28)
--- NOTE | 2022-04-22 13:12 | MHC.CM.PN ---
IMM EXPLAINED VIA TELEPHONE TO HCP NICOLA JACKSON VIA MESSAGE. WHITE COPY SENT VIA MAIL, YELLOW COPY TO CHART.
[2022-04-23] VITALS (7 sets, daily range): BP systolic 148–180; BP diastolic 74–93; PULSE 66–90; RESP 18; TEMP 36.3–36.8; O2SAT 88–97
[2022-04-23] MEDS: 0.9 % Sodium Chloride Flush 3 ML SYRINGE IVFLUSH ×2 (09:34→17:45)
[2022-04-23] MEDS: dexAMETHasone sod phosphate 4 MG/ML VIAL 6 MG IVPUSH (09:34)
[2022-04-23 09:39] LABS: Hematocrit 44.5 % (37.0-47.0); Hemoglobin 14.5 g/dl (12.0-16.0); Mean Corpuscular HGB Conc 32.6 g/dl (31.0-35.0); Mean Corpuscular Hemoglobin 30.5 pg (27.0-33.0); Mean Corpuscular Volume 93.7 fL (80.0-98.0); Mean Platelet Volume 12.9 fL (9.4-12.3); Platelet Count 107 X10*3/uL (160-400); Red Blood Count 4.75 X10*6/uL (4.20-5.50); Red Cell Distribution Width 14.1 % (11.0-16.0); White Blood Count 4.7 X10*3/uL (4.8-10.8)
[2022-04-23 09:51] LABS: Anion Gap 14 (12-20); Blood Urea Nitrogen 38 mg/dL (9-16); Calcium 9.4 mg/dL (8.4-10.2); Carbon Dioxide 35 mmol/L (22-29); Chloride 100 mmol/L (96-108); Creatinine Clr Calc Pharmacy 35.3; Estimated Glomerular Filt Rate > 60; Glucose Random 146 mg/dL (60-115); Potassium 3.5 mmol/L (3.3-5.1); Sodium 145 mmol/L (135-145)
--- NOTE | 2022-04-23 12:35 | MHC.CM.PN ---
Patient has been refusing to participate with PT; she does qualify for home O2. CM will follow for PT's recommendation/assistance for best disposition plan.
--- NOTE | 2022-04-23 13:16 | HO.PM.IMPN ---
Subjective Subjective Date of Service: 04/23/22 Interval History: f/u on weakness d/t covid continue to improve, less O2 requirement Physical Exam Vital Signs: Vital Signs: Last Vital Signs Temp 98.0 F 04/23/22 11:23 Pulse 72 04/23/22 11:23 Resp 18 04/23/22 11:23 BP 148/85 H 04/23/22 11:23 Pulse Ox 97 04/23/22 11:23 O2 Del Method 04/23/22 11:23 O2 Flow Rate 3 04/23/22 11:23 BMI result Body Mass Index 15.0 Const: Other: General: AO X 3, no acute distress Resp: CTA bilateral CVS: S1,S2,RRR GI: +BS, NT, no distention Skin: No rash Neuro: motor grossly intact Psych: appropriate affect Objective Data Active Medications Acetaminophen (Acetaminophen 325 Mg Tablet) 650 mg PO Q6H PRN PRN Reason: Pain, Mild (Pain Scale 1-3) Benzocaine (Throat Lozenge, Medicated Lozenge) 1 lozenge MUCOUS MEM Q2H PRN PRN Reason: Sore Throat Dexamethasone Sodium Phosphate (Dexamethasone Sod Phosphate 4 Mg/Ml Vial) 6 mg IVPUSH DAILY [facility] Last Admin: 04/23/22 09:34 Dose: 6 mg Documented By: ELISSA Enoxaparin Sodium (Enoxaparin Sodium 30 Mg/0.3 Ml Syringe) 30 mg SUBCUT Q24H [facility] Last Admin: 04/22/22 23:58 Dose: Not Given Documented By: SANTANA Non-Admin Reason: Patient Asleep Morphine Sulfate (Morphine Sulfate 2 Mg/Ml Cartridge) 1 mg IVPUSH Q3H PRN; Protocol PRN Reason: for respiratory distress Ondansetron HCl (Ondansetron Hcl 4 Mg/2 Ml Vial) 4 mg IVPUSH Q8H PRN PRN Reason: Nausea and Vomiting Pharmacy Consult (Consult Rx Perform Med Rec) 1 each MISCELLANE ONCE PRN PRN Reason: Consult order Sodium Chloride (0.9 % Sodium Chloride Flush 3 Ml Syringe) 3 ml IVFLUSH QSHIFT [facility] Last Admin: 04/23/22 09:34 Dose: 3 ml Documented By: ELISSA Labs 04/23/22 08:55 04/23/22 08:54 Labs: Laboratory Results - last 24 hr 04/23/22 04/23/22 08:54 08:55 MCV 93.7 MCH 30.5 MCHC 32.6 RDW 14.1 Plt Count 107 L MPV 12.9 H Absolute Nucleated RBC 0.000 Nucleated RBC % (auto) 0.0 Anion Gap 14 Estim Creat Clear Calc 35.3 Estimated GFR > 60 Random Glucose 146 H Calcium 9.4 D Microbiology Microbiology Results: Microbiology 04/17/22 21:25 Blood Culture - Final Blood - Venous No growth after 5 days. 04/17/22 17:30 Blood Culture - Final Blood - Venous No growth after 5 days. Assessment and Plan (1) COVID-19 virus infection: Status: Acute (2) Generalized weakness: Status: Acute Plan 87-year-old who was recently discharged from [facility] for management of delirium and psychotic dementia presents to the hospital with weakness found to have COVID-19 infection acute UTI # acute COVID-19 infection, mild hypoxia but improved - afebrile, no leukocytosis, no imaging suggestive of pneumonia -Decadron 6 mg daily - qualifies for home O2 # acute UTI, culture negative, completed Abx # generalized weakness, adult failure to thrive - secondary to uti and covid - PT eval prior to dc #moderate protein calory malnutrition: ensure added, poor prognosis with dementia, malnutrition, paliative care discussed with family they are not ready DVT prophylaxis:? Lovenox Patient is doing much better, family updated at [facility], goal is for them to take her home, so probably home tomorrow. Time Spent With Patient Time: Total time managing care of this patient today ____ minutes. Quality Stroke Does the patient have a stroke diagnosis?: No VTE Prior VTE?: No VTE Risk Level:: Medical - moderate - high VTE Device Contraindication: Treatment Not Indicated VTE Drug Contraindication: N/A - Med Ordered
--- NOTE | 2022-04-23 15:45 | MHC.CLN ---
F/U PT IS MODERATELY MALNOURISHED SEE FULL CLINICAL NUTRITION ASSESSMENT DATED 04/21/22 PT WITH POOR PO DIET RX: REGULAR-APPROPRIATE PT RECEIVING ENSURE BID TO INCREASE KCALS (PREFERS [facility]ANILLA) SUPP PROVIDES 700KCALS, 40G PROTEIN MONITOR PO INTAKE AND SUPPLEMENT ACCEPTANCE
[2022-04-24] VITALS (7 sets, daily range): BP systolic 150–180; BP diastolic 81–100; PULSE 60–85; RESP 18–24; TEMP 36.1–37; O2SAT 93–96
[2022-04-24] MEDS: 0.9 % Sodium Chloride Flush 3 ML SYRINGE IVFLUSH ×2 (08:27→17:32)
[2022-04-24] MEDS: dexAMETHasone sod phosphate 4 MG/ML VIAL 6 MG IVPUSH (08:27)
--- NOTE | 2022-04-24 10:20 | HO.PM.IMPN ---
Subjective Subjective Date of Service: 04/24/22 Interval History: f/u on weakness d/t covid no new issues Physical Exam Vital Signs: Vital Signs: Last Vital Signs Temp 98.2 F 04/24/22 08:00 Pulse 63 04/24/22 08:00 Resp 24 H 04/24/22 08:00 BP 165/86 H 04/24/22 08:00 Pulse Ox 94 04/24/22 08:00 O2 Del Method 04/24/22 08:00 O2 Flow Rate 3.5 04/24/22 08:00 BMI result Body Mass Index 15.0 Const: Other: General: AO X 3, no acute distress Resp: CTA bilateral CVS: S1,S2,RRR GI: +BS, NT, no distention Skin: No rash Neuro: motor grossly intact Psych: appropriate affect Objective Data Active Medications Acetaminophen (Acetaminophen 325 Mg Tablet) 650 mg PO Q6H PRN PRN Reason: Pain, Mild (Pain Scale 1-3) Benzocaine (Throat Lozenge, Medicated Lozenge) 1 lozenge MUCOUS MEM Q2H PRN PRN Reason: Sore Throat Dexamethasone Sodium Phosphate (Dexamethasone Sod Phosphate 4 Mg/Ml Vial) 6 mg IVPUSH DAILY [facility] Last Admin: 04/24/22 08:27 Dose: 6 mg Documented By: ELEANOR Enoxaparin Sodium (Enoxaparin Sodium 30 Mg/0.3 Ml Syringe) 30 mg SUBCUT Q24H [facility] Last Admin: 04/24/22 01:06 Dose: Not Given Documented By: SANTANA Non-Admin Reason: Patient Refused Morphine Sulfate (Morphine Sulfate 2 Mg/Ml Cartridge) 1 mg IVPUSH Q3H PRN; Protocol PRN Reason: for respiratory distress Ondansetron HCl (Ondansetron Hcl 4 Mg/2 Ml Vial) 4 mg IVPUSH Q8H PRN PRN Reason: Nausea and Vomiting Pharmacy Consult (Consult Rx Perform Med Rec) 1 each MISCELLANE ONCE PRN PRN Reason: Consult order Sodium Chloride (0.9 % Sodium Chloride Flush 3 Ml Syringe) 3 ml IVFLUSH QSHIFT [facility] Last Admin: 04/24/22 08:27 Dose: 3 ml Documented By: ELEANOR Labs 04/23/22 08:55 04/23/22 08:54 Assessment and Plan (1) COVID-19 virus infection: Status: Acute (2) Generalized weakness: Status: Acute Plan 87-year-old who was recently discharged from [facility] for management of delirium and psychotic dementia presents to the hospital with weakness found to have COVID-19 infection acute UTI # acute COVID-19 infection, mild hypoxia but improved - afebrile, no leukocytosis, no imaging suggestive of pneumonia -Decadron 6 mg daily - qualifies for home O2 # acute UTI, culture negative, completed Abx # generalized weakness, adult failure to thrive - secondary to uti and covid - PT eval prior to dc #moderate protein calory malnutrition: ensure added, poor prognosis with dementia, malnutrition, paliative care discussed with family they are not ready DVT prophylaxis:? Lovenox Patient is doing much better, family updated at [facility], goal is for them to take her home, so probably home tomorrow. Time Spent With Patient Time: Total time managing care of this patient today ____ minutes. Quality Stroke Does the patient have a stroke diagnosis?: No VTE Prior VTE?: No VTE Risk Level:: Medical - moderate - high VTE Device Contraindication: Treatment Not Indicated VTE Drug Contraindication: N/A - Med Ordered
--- NOTE | 2022-04-24 10:56 | MHC.CM.PN ---
Per ROUNDS discussion, Patient is medically cleared for dc. PT rec STR VS home with direct supervision and walker and new VNA. CM spoke with Patient's Daughter/HCP/Arleth @ [phone] and Patient's Boyfriend/Didier, both of whom are ill themselves and cannot care for Patient in the home setting. The goal for dc is now STR; Arleth has approved a SNF search and BETY will follow for a bed offer. BETY has relayed this information to MD. Patient will be considered covid recovered on 04/28/2022.
[2022-04-25] MEDS: Enoxaparin Sodium 30 MG/0.3 ML SYRINGE SUBCUT (00:06)
[2022-04-25] MEDS: 0.9 % Sodium Chloride Flush 3 ML SYRINGE IVFLUSH ×3 (00:06→16:38)
[2022-04-25 04:00] VITALS: BP 164/82; RESP 18; TEMP 36.4; O2SAT 95
[2022-04-25 07:16] VITALS: BP 145/80; PULSE 63; RESP 16; TEMP 36.4; O2SAT 97
[2022-04-25] MEDS: dexAMETHasone sod phosphate 4 MG/ML VIAL 6 MG IVPUSH (09:05)
--- NOTE | 2022-04-25 09:28 | MHC.CM.PN ---
Broad SNF search referrals have been updated (COVID POSITVE IS THE BARRIER); CM will continue to follow.Covid recovered 04/28/2022.
--- NOTE | 2022-04-25 10:56 | P.PNIM_ITS ---
Subjective Subjective Date of Service: 04/25/22 Interval History: f/u on weakness d/t covid no new issues, respiratory status stable on present O2 Physical Exam Vital Signs: Vital Signs: Last Vital Signs Temp 97.6 F 04/25/22 07:16 Pulse 63 04/25/22 07:16 Resp 16 04/25/22 07:16 BP 145/80 H 04/25/22 07:16 Pulse Ox 97 04/25/22 07:16 O2 Del Method 04/25/22 07:16 O2 Flow Rate 3.5 04/25/22 07:16 BMI result Body Mass Index 15.0 Const: Other: General: AO X 3, no acute distress Resp: CTA bilateral CVS: S1,S2,RRR GI: +BS, NT, no distention Skin: No rash Neuro: motor grossly intact Psych: appropriate affect Objective Data Active Medications Acetaminophen (Acetaminophen 325 Mg Tablet) 650 mg PO Q6H PRN PRN Reason: Pain, Mild (Pain Scale 1-3) Benzocaine (Throat Lozenge, Medicated Lozenge) 1 lozenge MUCOUS MEM Q2H PRN PRN Reason: Sore Throat Dexamethasone Sodium Phosphate (Dexamethasone Sod Phosphate 4 Mg/Ml Vial) 6 mg IVPUSH DAILY [facility] Last Admin: 04/25/22 09:05 Dose: 6 mg Documented By: ROSALIA Enoxaparin Sodium (Enoxaparin Sodium 30 Mg/0.3 Ml Syringe) 30 mg SUBCUT Q24H [facility] Last Admin: 04/25/22 00:06 Dose: 30 mg Documented By: ANTOIC Morphine Sulfate (Morphine Sulfate 2 Mg/Ml Cartridge) 1 mg IVPUSH Q3H PRN; Pro tocol PRN Reason: for respiratory distress Ondansetron HCl (Ondansetron Hcl 4 Mg/2 Ml Vial) 4 mg IVPUSH Q8H PRN PRN Reason: Nausea and Vomiting Pharmacy Consult (Consult Rx Perform Med Rec) 1 each MISCELLANE ONCE PRN PRN Reason: Consult order Sodium Chloride (0.9 % Sodium Chloride Flush 3 Ml Syringe) 3 ml IVFLUSH QSHIFT [facility] Last Admin: 04/25/22 09:05 Dose: 3 ml Documented By: ROSALIA Labs 04/23/22 08:55 04/23/22 08:54 Assessment and Plan (1) UTI (urinary tract infection): Status: Acute (2) COVID-19 virus infection: Status: Acute (3) Generalized weakness: Status: Acute Plan 87-year-old who was recently discharged from [facility] for management of delirium and psychotic dementia presents to the hospital with weakness found to have COVID-19 infection acute UTI # acute COVID-19 infection, mild hypoxia but improved - afebrile, no leukocytosis, no imaging suggestive of pneumonia -Decadron 6 mg daily for 7 to 10 days - qualifies for home O2 # acute UTI, culture negative, completed Abx # generalized weakness, adult failure to thrive - secondary to uti and covid - PT eval prior to dc #moderate protein calory malnutrition: ensure added, poor prognosis with dementia, malnutrition, paliative care discussed with family they are not ready DVT prophylaxis:? Lovenox Patient is doing much better, family updated at bed[facility], goal is for them to take her home, so probably home tomorrow. At this point waiting for placement Time Spent With Patient Time: Total time managing care of this patient today ____ minutes. Quality Stroke Does the patient have a stroke diagnosis?: No VTE Prior VTE?: No VTE Risk Level:: Medical - moderate - high VTE Device Contraindication: Treatment Not Indicated VTE Drug Contraindication: N/A - Med Ordered
[2022-04-25 12:00] VITALS: BP 138/82; PULSE 68; RESP 16; TEMP 36.7; O2SAT 97
--- NOTE | 2022-04-25 13:09 | MHC.CLN ---
F/U PT CONTIUES WITH POOR PO DIET RX: REGULAR-APPROPRIATE PT RECEIVING ENSURE BID TO INCREASE KCALS (PREFERS [facility]ANILLA) SUPP PROVIDES 700KCALS, 40G PROTEIN WILL ADD MAGIC CUP WITH MEALS MONITOR PO INTAKE AND SUPPLEMENT ACCEPTANCE
[2022-04-25 16:00] VITALS: BP 135/75; PULSE 77; RESP 17; TEMP 36.6; O2SAT 98
[2022-04-25 19:54] VITALS: BP 184/88; PULSE 60; RESP 18; TEMP 36.4; O2SAT 94
[2022-04-26] VITALS: BP 173/81; PULSE 83; RESP 18; TEMP 36.1; O2SAT 98
--- NOTE | 2022-04-26 06:31 | PC.NURSE ---
Pt had a BP of 184/88 but she was asymptomatic so Dr. Arana said to keep watch over her.
[2022-04-26 07:56] VITALS: BP 165/78; PULSE 78; RESP 18; TEMP 36.2; O2SAT 98
--- NOTE | 2022-04-26 08:27 | PC.NURSE ---
pt having SOB despite O2 sat of 94% on 4L NC. pt denies any chest pain/ pressure. All other vitals WNL. aware no new orders at this time. Will continue to monitor
--- NOTE | 2022-04-26 09:02 | HO.PM.IMPN ---
Subjective Subjective Date of Service: 04/26/22 Interval History: f/u on weakness d/t covid when asked if sob says little bit, no wob, wants to go home, seems anxious Physical Exam Vital Signs: Vital Signs: Last Vital Signs Temp 97.2 F 04/26/22 07:56 Pulse 78 04/26/22 07:56 Resp 18 04/26/22 07:56 BP 165/78 H 04/26/22 07:56 Pulse Ox 98 04/26/22 07:56 O2 Del Method 04/26/22 07:56 O2 Flow Rate 3 04/26/22 07:56 BMI result Body Mass Index 15.0 Const: Other: General: AO X 2, no acute distress Resp: CTA bilateral CVS: S1,S2,RRR GI: +BS, NT, no distention Skin: No rash Neuro: motor grossly intact Psych: appropriate affect Objective Data Active Medications Acetaminophen (Acetaminophen 325 Mg Tablet) 650 mg PO Q6H PRN PRN Reason: Pain, Mild (Pain Scale 1-3) Benzocaine (Throat Lozenge, Medicated Lozenge) 1 lozenge MUCOUS MEM Q2H PRN PRN Reason: Sore Throat Dexamethasone Sodium Phosphate (Dexamethasone Sod Phosphate 4 Mg/Ml Vial) 6 mg IVPUSH DAILY [facility] Last Admin: 04/25/22 09:05 Dose: 6 mg Documented By: ROSALIA Enoxaparin Sodium (Enoxaparin Sodium 30 Mg/0.3 Ml Syringe) 30 mg SUBCUT Q24H [facility] Last Admin: 04/26/22 00:21 Dose: Not Given Documented By: JERARDO Non-Admin Reason: Patient Refused Ondansetron HCl (Ondansetron Hcl 4 Mg/2 Ml Vial) 4 mg IVPUSH Q8H PRN PRN Reason: Nausea and Vomiting Pharmacy Consult (Consult Rx Perform Med Rec) 1 each MISCELLANE ONCE PRN PRN Reason: Consult order Sodium Chloride (0.9 % Sodium Chloride Flush 3 Ml Syringe) 3 ml IVFLUSH QSHIFT [facility] Last Admin: 04/26/22 00:24 Dose: Not Given Documented By: JERARDO Non-Admin Reason: Previously Administered Labs 04/23/22 08:55 04/23/22 08:54 Assessment and Plan (1) UTI (urinary tract infection): Status: Acute (2) COVID-19 virus infection: Status: Acute (3) Generalized weakness: Status: Acute Plan 87-year-old who was recently discharged from [facility] for management of delirium and psychotic dementia presents to the hospital with weakness found to have COVID-19 infection acute UTI # acute COVID-19 infection, mild hypoxia but improved - afebrile, no leukocytosis, no imaging suggestive of pneumonia -Decadron 6 mg daily for 7 to 10 days - qualifies for home O2 # acute UTI, culture negative, completed Abx # generalized weakness, adult failure to thrive - secondary to uti and covid - PT eval prior to dc #moderate protein calory malnutrition: ensure added, poor prognosis with dementia, malnutrition, paliative care discussed with family they are not ready anxiety if becomes excessive will try ativan DVT prophylaxis:? Lovenox Patient is doing much better, family updated at bed[facility], goal is for them to take her home, so probably home tomorrow. At this point waiting for placement as family cannot take care of her Time Spent With Patient Time: Total time managing care of this patient today ____ minutes. Quality Stroke Does the patient have a stroke diagnosis?: No VTE Prior VTE?: No VTE Risk Level:: Medical - moderate - high VTE Device Contraindication: Treatment Not Indicated VTE Drug Contraindication: N/A - Med Ordered
[2022-04-26] MEDS: dexAMETHasone sod phosphate 4 MG/ML VIAL 6 MG IVPUSH (09:30)
[2022-04-26] MEDS: 0.9 % Sodium Chloride Flush 3 ML SYRINGE IVFLUSH (09:31)
[2022-04-26 11:33] VITALS: BP 156/84; PULSE 82; RESP 19; TEMP 36.9; O2SAT 95
[2022-04-26 14:03] LABS: COVID-19 Test Positive (Negative); IDNOW Serial# 16C4AD1C
[2022-04-26 15:30] VITALS: BP 190/90; PULSE 63; RESP 18; TEMP 36.4; O2SAT 92
[2022-04-26 20:00] VITALS: BP 176/96; PULSE 96; TEMP 36.4; O2SAT 93
[2022-04-26 23:36] VITALS: BP 178/86; PULSE 56; RESP 18; TEMP 37.1; O2SAT 100
[2022-04-27] MEDS: Enoxaparin Sodium 30 MG/0.3 ML SYRINGE SUBCUT ×2 (00:23→23:19)
[2022-04-27 03:15] VITALS: BP 198/94; PULSE 61; RESP 18; TEMP 37.4; O2SAT 99
--- NOTE | 2022-04-27 03:35 | PC.NURSE ---
Pt had a blood pressure of 198/[address] Sumit saul.
[2022-04-27] MEDS: hydrALAZINE HCl 20 MG/ML VIAL 10 MG IVPUSH ×2 (04:07→23:18)
[2022-04-27 07:36] VITALS: BP 142/73; PULSE 65; RESP 16; TEMP 36.6; O2SAT 96
[2022-04-27] MEDS: dexAMETHasone sod phosphate 4 MG/ML VIAL 6 MG IVPUSH (08:36)
[2022-04-27] MEDS: 0.9 % Sodium Chloride Flush 3 ML SYRINGE IVFLUSH ×2 (08:36→23:19)
[2022-04-27 11:21] VITALS: BP 148/80; PULSE 65; RESP 16; TEMP 36.4; O2SAT 96
--- NOTE | 2022-04-27 11:54 | HO.PM.IMPN ---
Subjective Subjective Date of Service: 04/27/22 Interval History: f/u on weakness d/t covid O2 remains stable, overall, very anxious Review of Systems anxious Physical Exam Vital Signs: Vital Signs: Last Vital Signs Temp 97.5 F 04/27/22 11:21 Pulse 65 04/27/22 11:21 Resp 16 04/27/22 11:21 BP 148/80 H 04/27/22 11:21 Pulse Ox 96 04/27/22 11:21 O2 Del Method 04/27/22 11:21 O2 Flow Rate 3 04/27/22 11:21 BMI result Body Mass Index 15.0 Objective Data Active Medications Acetaminophen (Acetaminophen 325 Mg Tablet) 650 mg PO Q6H PRN PRN Reason: Pain, Mild (Pain Scale 1-3) Benzocaine (Throat Lozenge, Medicated Lozenge) 1 lozenge MUCOUS MEM Q2H PRN PRN Reason: Sore Throat Dexamethasone Sodium Phosphate (Dexamethasone Sod Phosphate 4 Mg/Ml Vial) 6 mg IVPUSH DAILY [facility] Last Admin: 04/27/22 08:36 Dose: 6 mg Documented By: ELEANOR Enoxaparin Sodium (Enoxaparin Sodium 30 Mg/0.3 Ml Syringe) 30 mg SUBCUT Q24H [facility] Last Admin: 04/27/22 00:23 Dose: 30 mg Documented By: JERARDO Lorazepam (Lorazepam 0.5 Mg Tablet) 0.25 mg PO Q6H PRN PRN Reason: Anxet Ondansetron HCl (Ondansetron Hcl 4 Mg/2 Ml Vial) 4 mg IVPUSH Q8H PRN PRN Reason: Nausea and Vomiting Pharmacy Consult (Consult Rx Perform Med Rec) 1 each MISCELLANE ONCE PRN PRN Reason: Consult order Sodium Chloride (0.9 % Sodium Chloride Flush 3 Ml Syringe) 3 ml IVFLUSH QSHIFT [facility] Last Admin: 04/27/22 08:36 Dose: 3 ml Documented By: ELEANOR Labs 04/23/22 08:55 04/23/22 08:54 Labs: Laboratory Results - last 24 hr 04/26/22 13:40 COVID-19 ([facility]) Positive A COVID-19 Clin Com See Note Assessment and Plan (1) UTI (urinary tract infection): Status: Acute (2) COVID-19 virus infection: Status: Acute (3) Generalized weakness: Status: Acute Plan 87-year-old who was recently discharged from [facility] for management of delirium and psychotic dementia presents to the hospital with weakness found to have COVID-19 infection acute UTI # acute COVID-19 infection, mild hypoxia but improved - afebrile, no leukocytosis, no imaging suggestive of pneumonia -Decadron 6 mg daily for 7 to 10 days - qualifies for home O2 # acute UTI, culture negative, completed Abx # generalized weakness, adult failure to thrive - secondary to uti and covid - PT eval prior to dc #moderate protein calory malnutrition: ensure added, poor prognosis with dementia, malnutrition, paliative care discussed with family but they are not ready anxiety if becomes excessive will try ativan DVT prophylaxis:? Lovenox Patient is doing much better, family updated at bed[facility], goal is for them to take her home, so probably home tomorrow. At this point waiting for placement as family cannot take care of her Time Spent With Patient Time: Total time managing care of this patient today ____ minutes. Quality Stroke Does the patient have a stroke diagnosis?: No VTE Prior VTE?: No VTE Risk Level:: Medical - moderate - high VTE Device Contraindication: Treatment Not Indicated VTE Drug Contraindication: N/A - Med Ordered
[2022-04-27 16:00] VITALS: BP 142/75; PULSE 58; RESP 16; TEMP 37.1; O2SAT 97
[2022-04-27 20:00] VITALS: BP 192/93; PULSE 64; RESP 18; TEMP 36.1; O2SAT 97
[2022-04-28] VITALS: BP 136/74; PULSE 74; RESP 18; TEMP 36.1; O2SAT 97
[2022-04-28] MEDS: Acetaminophen 325 MG TABLET 650 MG PO ×2 (01:43→15:56)
[2022-04-28 07:24] VITALS: BP 157/77; PULSE 65; RESP 20; TEMP 37.2; O2SAT 92
[2022-04-28] MEDS: dexAMETHasone sod phosphate 4 MG/ML VIAL 6 MG IVPUSH (09:14)
[2022-04-28] MEDS: 0.9 % Sodium Chloride Flush 3 ML SYRINGE IVFLUSH ×2 (09:17→15:56)
--- NOTE | 2022-04-28 10:03 | MHC.CLN ---
F/U PT CONTIUES WITH VERY POOR PO CONSUMING 0-5% DIET RX: REGULAR-APPROPRIATE PT RECEIVING ENSURE BID AND MAGIC CUP TO INCREASE KCALS (PREFERS VANILLA) ENSURE SUPPLEMENT PROVIDES 700KCALS, 40G PROTEIN WITH 100% ACCEPTANCE FAMILY DECLINED PALLIATIVE CARE AT THIS TIME CONSULT RD IF ALTERNATIVE NUTRITION SUPPORT NEEDED
[2022-04-28 11:04] VITALS: BP 140/84; PULSE 66; RESP 20; TEMP 36.8; O2SAT 95
--- NOTE | 2022-04-28 14:38 | HO.PM.IMPN ---
Subjective Subjective Date of Service: 04/28/22 Interval History: f/u on weakness d/t covid No new changes, reamins on O2 sating around 95 but increased O2 requirement to 5 liters Review of Systems anxious Physical Exam Vital Signs: Vital Signs: Last Vital Signs Temp 98.2 F 04/28/22 11:04 Pulse 66 04/28/22 11:04 Resp 20 04/28/22 11:04 BP 140/84 H 04/28/22 11:04 Pulse Ox 95 04/28/22 11:04 O2 Del Method 04/28/22 11:04 O2 Flow Rate 5 04/28/22 11:04 BMI result Body Mass Index 15.0 Objective Data Active Medications Acetaminophen (Acetaminophen 325 Mg Tablet) 650 mg PO Q6H PRN PRN Reason: Pain, Mild (Pain Scale 1-3) Last Admin: 04/28/22 01:43 Dose: 650 mg Documented By: JERARDO Benzocaine (Throat Lozenge, Medicated Lozenge) 1 lozenge MUCOUS MEM Q2H PRN PRN Reason: Sore Throat Dexamethasone Sodium Phosphate (Dexamethasone Sod Phosphate 4 Mg/Ml Vial) 6 mg IVPUSH DAILY [facility] Last Admin: 04/28/22 09:14 Dose: 6 mg Documented By: EMELY Enoxaparin Sodium (Enoxaparin Sodium 30 Mg/0.3 Ml Syringe) 30 mg SUBCUT Q24H [facility] Last Admin: 04/27/22 23:19 Dose: 30 mg Documented By: JERARDO Lorazepam (Lorazepam 0.5 Mg Tablet) 0.25 mg PO Q6H PRN PRN Reason: Anxet Ondansetron HCl (Ondansetron Hcl 4 Mg/2 Ml Vial) 4 mg IVPUSH Q8H PRN PRN Reason: Nausea and Vomiting Pharmacy Consult (Consult Rx Perform Med Rec) 1 each MISCELLANE ONCE PRN PRN Reason: Consult order Sodium Chloride (0.9 % Sodium Chloride Flush 3 Ml Syringe) 3 ml IVFLUSH QSHIFT [facility] Last Admin: 04/28/22 09:17 Dose: 3 ml Documented By: EMELY Labs 04/23/22 08:55 04/23/22 08:54 Assessment and Plan (1) Generalized weakness: Status: Acute (2) UTI (urinary tract infection): Status: Acute (3) COVID-19 virus infection: Status: Acute (4) Dementia with psychotic disturbance: Status: Acute Plan 87-year-old who was recently discharged from [facility] for management of delirium and psychotic dementia presents to the hospital with weakness found to have COVID-19 infection acute UTI # acute COVID-19 infection, mild hypoxia but improved - afebrile, no leukocytosis, no imaging suggestive of pneumonia -Decadron 6 mg daily for 7 to 10 days - qualifies for home O2 # acute UTI, culture negative, completed Abx # generalized weakness, adult failure to thrive - secondary to uti and covid - PT eval prior to dc #moderate protein calory malnutrition: ensure added, poor prognosis with dementia, malnutrition, paliative care discussed with family but they are not ready anxiety if becomes excessive will try ativan DVT prophylaxis:? Lovenox Patient is doing much better, family updated at bedise, goal is for them to take her home, so probably home tomorrow. At this point waiting for placement as family cannot take care of her Time Spent With Patient Time: Total time managing care of this patient today ____ minutes. Quality Stroke Does the patient have a stroke diagnosis?: No VTE Prior VTE?: No VTE Risk Level:: Medical - moderate - high VTE Device Contraindication: Treatment Not Indicated VTE Drug Contraindication: N/A - Med Ordered
--- NOTE | 2022-04-28 14:48 | MHC.CM.PN ---
met with sheree gordon [phone] who has deceided to take pt home with vna she will be in at 1 to transport pt home
[2022-04-28 15:20] VITALS: BP 134/69; PULSE 72; RESP 17; TEMP 36.7; O2SAT 96
[2022-04-28] MEDS: LORazepam 0.5 MG TABLET 0.25 MG PO (17:12)
[2022-04-28 19:39] VITALS: BP 119/78; PULSE 61; RESP 17; TEMP 36.2; O2SAT 97
[2022-04-29] VITALS: BP 167/92; PULSE 60; RESP 18; TEMP 36.7; O2SAT 96
[2022-04-29] MEDS: Enoxaparin Sodium 30 MG/0.3 ML SYRINGE SUBCUT ×2 (01:04→23:35)
[2022-04-29] MEDS: 0.9 % Sodium Chloride Flush 3 ML SYRINGE IVFLUSH ×4 (01:04→23:39)
[2022-04-29 07:40] VITALS: BP 110/60; PULSE 62; RESP 12; TEMP 36.3; O2SAT 95
[2022-04-29] MEDS: LORazepam 0.5 MG TABLET 0.25 MG PO (08:43)
[2022-04-29] MEDS: dexAMETHasone sod phosphate 4 MG/ML VIAL 6 MG IVPUSH (08:45)
[2022-04-29 12:00] VITALS: BP 120/59; PULSE 58; RESP 16; TEMP 36.5; O2SAT 94
[2022-04-29 15:32] VITALS: BP 158/82; PULSE 66; RESP 20; TEMP 36.8; O2SAT 95
--- NOTE | 2022-04-29 16:03 | MHC.CM.PN ---
CM SPOKE WITH DAUGHTER MAYANK WHO IS UNABLE TO CARE FOR HER MOTHER AT HOME, REQUEST PLACEMENT. BROAD REFERRAL SEARCH WITH NO BED OFFERS AT THIS TIME. DAUGHTER PROVIDED THIS CM WITH PT MH #, GIVEN TO BILLING.
--- NOTE | 2022-04-29 17:19 | P.PNIM_ITS ---
Subjective Subjective Date of Service: 04/29/22 Interval History: f/u on weakness d/t covid Review of Systems No new changes, reamins on O2 sating around 95 but increased O2 requirement to 3 liters Physical Exam Vital Signs: Vital Signs: Last Vital Signs Temp 98.3 F 04/29/22 15:32 Pulse 66 04/29/22 15:32 Resp 20 04/29/22 15:32 BP 158/82 H 04/29/22 15:32 Pulse Ox 95 04/29/22 15:32 O2 Del Method 04/29/22 15:32 O2 Flow Rate 3 04/29/22 15:32 BMI result Body Mass Index 15.0 General: AO X 2, no acute distress Resp:? CTA bilateral CVS: S1,S2,RRR GI: +BS, NT, no distention Skin: No rash Neuro:? motor grossly intact Psych: appropriate affect Objective Data Active Medications Acetaminophen (Acetaminophen 325 Mg Tablet) 650 mg PO Q6H PRN PRN Reason: Pain, Mild (Pain Scale 1-3) Last Admin: 04/28/22 15:56 Dose: 650 mg Documented By: EMELY Benzocaine (Throat Lozenge, Medicated Lozenge) 1 lozenge MUCOUS MEM Q2H PRN PRN Reason: Sore Throat Dexamethasone Sodium Phosphate (Dexamethasone Sod Phosphate 4 Mg/Ml Vial) 6 mg IVPUSH DAILY [facility] Last Admin: 04/29/22 08:45 Dose: 6 mg Documented By: EMELY Enoxaparin Sodium (Enoxaparin Sodium 30 Mg/0.3 Ml Syringe) 30 mg SUBCUT Q24H [facility] Last Admin: 04/29/22 01:04 Dose: 30 mg Documented By: ANTJEMIMA Lorazepam (Lorazepam 0.5 Mg Tablet) 0.25 mg PO Q6H PRN PRN Reason: Anxet Last Admin: 04/29/22 08:43 Dose: 0.25 mg Documented By: EMELY Ondansetron HCl (Ondansetron Hcl 4 Mg/2 Ml Vial) 4 mg IVPUSH Q8H PRN PRN Reason: Nausea and Vomiting Pharmacy Consult (Consult Rx Perform Med Rec) 1 each MISCELLANE ONCE PRN PRN Reason: Consult order Sodium Chloride (0.9 % Sodium Chloride Flush 3 Ml Syringe) 3 ml IVFLUSH QSHIFT [facility] Last Admin: 04/29/22 16:48 Dose: 3 ml Documented By: ROSEMARIEMAT Labs 04/23/22 08:55 04/23/22 08:54 Assessment and Plan (1) Generalized weakness: Status: Acute (2) UTI (urinary tract infection): Status: Acute (3) COVID-19 virus infection: Status: Acute (4) Dementia with psychotic disturbance: Status: Acute Plan 87-year-old who was recently discharged from [facility] for management of delirium and psychotic dementia presents to the hospital with weakness found to have COVID-19 infection acute UTI acute COVID-19 infection, mild hypoxia but improved - afebrile, no leukocytosis, no imaging suggestive of pneumonia -Decadron 6 mg daily for 8 to 10 days - qualifies for home O2 acute UTI, culture negative, completed Abx generalized weakness, adult failure to thrive - secondary to uti and covid - PT eval prior to dc moderate protein calory malnutrition: ensure added, poor prognosis with dementia, malnutrition, paliative care discussed with family but they are not ready anxiety if becomes excessive will try ativan DVT prophylaxis:? Lovenox Patient is doing much better, family updated . At this point waiting for placement as family cannot take care of her inpatient need : awaiting placement. Time Spent With Patient Time: Total time managing care of this patient today ____ minutes. Quality Stroke Does the patient have a stroke diagnosis?: No VTE Prior VTE?: No VTE Risk Level:: Medical - moderate - high VTE Device Contraindication: Treatment Not Indicated VTE Drug Contraindication: N/A - Med Ordered
[2022-04-29 19:29] VITALS: BP 164/86; PULSE 59; RESP 20; TEMP 36.6; O2SAT 96
[2022-04-29 23:30] VITALS: BP 159/81; PULSE 59; RESP 20; TEMP 36.6; O2SAT 99
[2022-04-30 02:51] VITALS: BP 169/87; PULSE 63; RESP 20; TEMP 36.7; O2SAT 100
[2022-04-30 07:35] VITALS: BP 142/84; PULSE 68; TEMP 37.1; O2SAT 96
[2022-04-30] MEDS: 0.9 % Sodium Chloride Flush 3 ML SYRINGE IVFLUSH ×2 (08:59→22:54)
[2022-04-30] MEDS: dexAMETHasone sod phosphate 4 MG/ML VIAL 6 MG IVPUSH (08:59)
[2022-04-30] MEDS: Megestrol Acetate 400 MG/10 ML ORAL.SUSP PO (08:59)
--- NOTE | 2022-04-30 10:58 | MHC.CLN ---
F/U PO INTAKE REMAINS POOR CONSUMING 0-50% DIET RX: REGULAR-APPROPRIATE PT RECEIVING ENSURE BID AND MAGIC CUP TO INCREASE KCALS (PREFERS VANILLA) ENSURE SUPPLEMENT PROVIDES 700KCALS, 40G PROTEIN WITH 100% ACCEPTANCE FAMILY DECLINED PALLIATIVE CARE AT THIS TIME CONSULT RD IF ALTERNATIVE NUTRITION SUPPORT NEEDED
[2022-04-30 11:15] VITALS: BP 145/88; PULSE 65; RESP 19; TEMP 37.1; O2SAT 95
[2022-04-30 15:20] VITALS: BP 126/73; PULSE 68; RESP 20; TEMP 36.9; O2SAT 97
--- NOTE | 2022-04-30 15:38 | P.PNIM_ITS ---
Subjective Subjective Date of Service: 04/30/22 Interval History: f/u on weakness d/t covid Review of Systems No new changes, reamins on O2 sating around 95 but increased O2 requirement to 3 liters Physical Exam Vital Signs: Vital Signs: Last Vital Signs Temp 98.5 F 04/30/22 15:20 Pulse 68 04/30/22 15:20 Resp 20 04/30/22 15:20 BP 126/73 04/30/22 15:20 Pulse Ox 97 04/30/22 15:20 O2 Del Method 04/30/22 15:20 O2 Flow Rate 3 04/30/22 15:20 BMI result Body Mass Index 15.0 General: AO X 2, no acute distress Resp:? CTA bilateral CVS: S1,S2,RRR GI: +BS, NT, no distention Skin: No rash Neuro:? motor grossly intact Psych: appropriate affect Objective Data Active Medications Acetaminophen (Acetaminophen 325 Mg Tablet) 650 mg PO Q6H PRN PRN Reason: Pain, Mild (Pain Scale 1-3) Last Admin: 04/28/22 15:56 Dose: 650 mg Documented By: EMELY Benzocaine (Throat Lozenge, Medicated Lozenge) 1 lozenge MUCOUS MEM Q2H PRN PRN Reason: Sore Throat Dexamethasone Sodium Phosphate (Dexamethasone Sod Phosphate 4 Mg/Ml Vial) 6 mg IVPUSH DAILY [facility] Last Admin: 04/30/22 08:59 Dose: 6 mg Documented By: MILENA Enoxaparin Sodium (Enoxaparin Sodium 30 Mg/0.3 Ml Syringe) 30 mg SUBCUT Q24H [facility] Last Admin: 04/29/22 23:35 Dose: 30 mg Documented By: BARRINGTON Lorazepam (Lorazepam 0.5 Mg Tablet) 0.25 mg PO Q6H PRN PRN Reason: Anxet Last Admin: 04/29/22 08:43 Dose: 0.25 mg Documented By: EMELY Ondansetron HCl (Ondansetron Hcl 4 Mg/2 Ml Vial) 4 mg IVPUSH Q8H PRN PRN Reason: Nausea and Vomiting Pharmacy Consult (Consult Rx Perform Med Rec) 1 each MISCELLANE ONCE PRN PRN Reason: Consult order Sodium Chloride (0.9 % Sodium Chloride Flush 3 Ml Syringe) 3 ml IVFLUSH QSHIFT [facility] Last Admin: 04/30/22 08:59 Dose: 3 ml Documented By: MILENA Labs 04/23/22 08:55 04/23/22 08:54 Assessment and Plan (1) Generalized weakness: Status: Acute (2) UTI (urinary tract infection): Status: Acute (3) COVID-19 virus infection: Status: Acute (4) Dementia with psychotic disturbance: Status: Acute Plan 87-year-old who was recently discharged from [facility] for management of delirium and psychotic dementia presents to the hospital with weakness found to have COVID-19 infection acute UTI acute COVID-19 infection, mild hypoxia but improved - afebrile, no leukocytosis, no imaging suggestive of pneumonia -Decadron 6 mg daily for 8 to 10 days - qualifies for home O2 acute UTI, culture negative, completed Abx generalized weakness, adult failure to thrive - secondary to uti and covid - PT eval prior to dc moderate protein calory malnutrition: ensure added, poor prognosis with dementia, malnutrition, paliative care discussed with family but they are not ready anxiety if becomes excessive will try ativan DVT prophylaxis:? Lovenox Patient is doing much better, family updated . At this point waiting for placement as family cannot take care of her inpatient need : awaiting placement. Time Spent With Patient Time: Total time managing care of this patient today ____ minutes. Quality Stroke Does the patient have a stroke diagnosis?: No VTE Prior VTE?: No VTE Risk Level:: Medical - moderate - high VTE Device Contraindication: Treatment Not Indicated VTE Drug Contraindication: N/A - Med Ordered
--- NOTE | 2022-04-30 17:28 | P.CNPS_ITS ---
History of Present Illness Date of Service: 04/30/2022 Chief Complaint: Weakness, Covid Reason for Consult: question of depression as cause for FTT HPI Narrative: CTSP for eval for role mood disorder might be playing in her FTT. pt was alert and oriented to person, place, time, and purpose. she lacked any paranoid or delusional ideas. she denies depressed mood, insomnia, amotivation/anhedonia, guilt/hopelessness, anergia, decreased concentration, poor appetite (she stated only that she is a picky eater ), or SI in the weeks prior to hospitalization. there were no signs or symptoms of mental illness apart from perhaps moderate co gnitive disorder. 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 she had been on haldol, trazodone, and ativan at discharge from [facility] on 04/15. she had been admitted due to UTI delirium in someone with dementia. at present she is not prescribed any of those medications and appears reasonably clear mentally and without the paranoid delusions she had been harboring when admitted to [facility]. she remains recovering from COVID and another UTI in the present medical hospitalization, having been delirious earlier in her present stay, similarly to when she was on [facility]. Past Psychiatric History: admission on [facility] early april 2022 for delirium 2/2 UTI in dementia [facility] Medical History (Updated 04/30/22 @ 17:34 by Irving Hendrickson) Dementia with psychotic disturbance Family History: Denies psychiatric illness in her family. 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, she is a retired nurse aid from nursing homes, she has good social support in the community Substance History: none relevant Trauma History: Denies Diagnostics Vital Signs (24Hr): Vital Signs - 24 hr 04/29/22 19:29 04/29/22 23:30 04/30/22 02:51 Temperature 97.8 F 97.8 F 98.0 F Pulse Rate 59 59 63 Respiratory Rate 20 20 20 Blood Pressure 164/86 H 159/81 H 169/87 H Pulse Oximetry 96 99 100 Oxygen Delivery Method Nasal Cannula Nasal Cannula Nasal Cannula Oxygen Flow Rate 3 3 3 04/30/22 07:35 04/30/22 11:15 04/30/22 15:20 Temperature 98.8 F 98.8 F 98.5 F Pulse Rate 68 65 68 Respiratory Rate 19 20 Blood Pressure 142/84 H 145/88 H 126/73 Pulse Oximetry 96 95 97 Oxygen Delivery Method Nasal Cannula Nasal Cannula Nasal Cannula Oxygen Flow Rate 3 3 3 BMI result Body Mass Index 15.0 Labs 04/23/22 08:55 04/23/22 08:54 Imaging Radiology Impressions: ITS Impressions Chest X-Ray 04/17/22 18:32 IMPRESSION: 1. No acute pulmonary process. 2. Mild elevation left hemidiaphragm with mild left basilar subsegmental atelectasis. Mental Status Exam Mental Status Exam Patient Appearance: Appropriate Patient Orientation: Person, Place, Time and Situation Level of Consciousness: Awake and Appropriate Patient Behavior: Appropriate and Good Eye Contact Mood Description: Calm Affect Description: Constricted Patient Cognition Impaired: No Ability to Follow Directions: Good Speech Pattern: Clear Hallucinations: None Delusions: Not Present Thought Process: Goal Oriented and Linear Thought Content: positive for Circumstantial and positive for Poverty of Content Judgement: Fair Judgement and Insight: Insight limited, judgment fair Medications Medications Current Medications Acetaminophen (Acetaminophen 325 Mg Tablet) 650 mg PO Q6H PRN PRN Reason: Pain, Mild (Pain Scale 1-3) Last Admin: 04/28/22 15:56 Dose: 650 mg Benzocaine (Throat Lozenge, Medicated Lozenge) 1 lozenge MUCOUS MEM Q2H PRN PRN Reason: Sore Throat Dexamethasone Sodium Phosphate (Dexamethasone Sod Phosphate 4 Mg/Ml Vial) 6 mg IVPUSH DAILY [facility] Last Admin: 04/30/22 08:59 Dose: 6 mg Enoxaparin Sodium (Enoxaparin Sodium 30 Mg/0.3 Ml Syringe) 30 mg SUBCUT Q24H [facility] Last Admin: 04/29/22 23:35 Dose: 30 mg Lorazepam (Lorazepam 0.5 Mg Tablet) 0.25 mg PO Q6H PRN PRN Reason: Anxet Last Admin: 04/29/22 08:43 Dose: 0.25 mg Ondansetron HCl (Ondansetron Hcl 4 Mg/2 Ml Vial) 4 mg IVPUSH Q8H PRN PRN Reason: Nausea and Vomiting Pharmacy Consult (Consult Rx Perform Med Rec) 1 each MISCELLANE ONCE PRN PRN Reason: Consult order Sodium Chloride (0.9 % Sodium Chloride Flush 3 Ml Syringe) 3 ml IVFLUSH QSHIFT [facility] Last Admin: 04/30/22 08:59 Dose: 3 ml Allergies Allergies Allergy/AdvReac Type Severity Reaction Status Date / Time Penicillins [PENICILLINS] Allergy Mild RASH Verified 04/09/22 05:54 Assessment & Plan Assessment & Plan (1) Dementia: Status: Acute Code(s): F03.90 - Unspecified dementia, unspecified severity, without behavioral disturbance, psychotic disturbance, mood disturbance, and anxiety Plan pt denies depression, is oriented to person, place, time, and purpose. she states she has not been eating much bcse she is a picky eater. denies neurovegetative Sx of depression. was recently on [facility] for delirium and was on haldol and trazodone, which have since been discontinued. would offer remeron 7.5-15 mg at HS for insomnia. this is a sedating antidepressant which also stimulates appetite. there is no clear connection between her FTT and mental illness. Total time managing care of this patient today __60__ minutes.
[2022-04-30] MEDS: LORazepam 0.5 MG TABLET 0.25 MG PO (17:34)
[2022-04-30 19:15] VITALS: BP 113/65; PULSE 61; RESP 20; TEMP 36.7; O2SAT 99
[2022-04-30] MEDS: Enoxaparin Sodium 30 MG/0.3 ML SYRINGE SUBCUT (22:52)
[2022-04-30 23:07] VITALS: BP 134/71; PULSE 60; RESP 20; TEMP 36.4; O2SAT 95
[2022-05-01 04:00] VITALS: BP 157/86; PULSE 56; RESP 20; TEMP 36.6; O2SAT 96
[2022-05-01 08:00] VITALS: BP 151/70; PULSE 73; RESP 20; TEMP 36.6; O2SAT 94
[2022-05-01] MEDS: Acetaminophen 325 MG TABLET 650 MG PO (08:57)
[2022-05-01] MEDS: dexAMETHasone sod phosphate 4 MG/ML VIAL 6 MG IVPUSH (08:58)
[2022-05-01] MEDS: 0.9 % Sodium Chloride Flush 3 ML SYRINGE IVFLUSH ×3 (08:59→23:52)
[2022-05-01 11:13] VITALS: BP 123/70; PULSE 70; RESP 20; TEMP 36.8; O2SAT 97
[2022-05-01 15:16] VITALS: BP 144/69; PULSE 71; RESP 20; TEMP 36.4; O2SAT 97
--- NOTE | 2022-05-01 15:22 | MHC.CM.PN ---
EMR REVIEWED. BED SEARCH CONTINUES FOR LTC PLACEMENT, NO BED OFFERS AT THIS TIME. CM WILL CONTINUE TO FOLLOW
--- NOTE | 2022-05-01 17:40 | HO.PM.IMPN ---
Subjective Subjective Date of Service: 05/02/22 Interval History: f/u on weakness d/t covid Review of Systems No new changes, reamins on O2 sating around 95 but increased O2 requirement to 3 liters Physical Exam Vital Signs: Vital Signs: Last Vital Signs Temp 97.6 F 05/01/22 15:16 Pulse 71 05/01/22 15:16 Resp 20 05/01/22 15:16 BP 144/69 H 05/01/22 15:16 Pulse Ox 97 05/01/22 15:16 O2 Del Method 05/01/22 15:16 O2 Flow Rate 3 05/01/22 15:16 BMI result Body Mass Index 15.0 General: AO X 2, no acute distress Resp:? CTA bilateral CVS: S1,S2,RRR GI: +BS, NT, no distention Skin: No rash Neuro:? motor grossly intact Psych: appropriate affect Objective Data Active Medications Acetaminophen (Acetaminophen 325 Mg Tablet) 650 mg PO Q6H PRN PRN Reason: Pain, Mild (Pain Scale 1-3) Last Admin: 05/01/22 08:57 Dose: 650 mg Documented By: FREDI Benzocaine (Throat Lozenge, Medicated Lozenge) 1 lozenge MUCOUS MEM Q2H PRN PRN Reason: Sore Throat Dexamethasone Sodium Phosphate (Dexamethasone Sod Phosphate 4 Mg/Ml Vial) 6 mg IVPUSH DAILY [facility] Last Admin: 05/01/22 08:58 Dose: 6 mg Documented By: FREDI Enoxaparin Sodium (Enoxaparin Sodium 30 Mg/0.3 Ml Syringe) 30 mg SUBCUT Q24H [facility] Last Admin: 04/30/22 22:52 Dose: 30 mg Documented By: JOHN Lorazepam (Lorazepam 0.5 Mg Tablet) 0.25 mg PO Q6H PRN PRN Reason: Anxet Last Admin: 04/30/22 17:34 Dose: 0.25 mg Documented By: MILENA Mirtazapine (Mirtazapine 7.5 Mg Tablet) 7.5 mg PO BEDTIME MRX1 PRN PRN Reason: insomnia Ondansetron HCl (Ondansetron Hcl 4 Mg/2 Ml Vial) 4 mg IVPUSH Q8H PRN PRN Reason: Nausea and Vomiting Pharmacy Consult (Consult Rx Perform Med Rec) 1 each MISCELLANE ONCE PRN PRN Reason: Consult order Sodium Chloride (0.9 % Sodium Chloride Flush 3 Ml Syringe) 3 ml IVFLUSH QSHIFT [facility] Last Admin: 05/01/22 16:27 Dose: 3 ml Documented By: FREDI Labs 04/23/22 08:55 04/23/22 08:54 Assessment and Plan (1) Generalized weakness: Status: Acute (2) UTI (urinary tract infection): Status: Acute (3) COVID-19 virus infection: Status: Acute (4) Dementia with psychotic disturbance: Status: Acute Plan 87-year-old who was recently discharged from [facility] for management of delirium and psychotic dementia presents to the hospital with weakness found to have COVID-19 infection acute UTI acute COVID-19 infection, mild hypoxia but improved - afebrile, no leukocytosis, no imaging suggestive of pneumonia -Decadron 6 mg daily for 8 to 10 days - qualifies for home O2 acute UTI, culture negative, completed Abx generalized weakness, adult failure to thrive po intake improvin-as per the staff patient ate cookies, bread, also Ensure. - secondary to uti and covid - PT eval prior to dc moderate protein calory malnutrition: ensure added, poor prognosis with dementia, malnutrition, paliative care discussed with family but they are not ready anxiety if becomes excessive will try ativan patient expressed ''?SI '' to staff- will need [facility] clearence upon discharge. DVT prophylaxis:? Lovenox Patient is doing much better, family updated . At this point waiting for placement as family cannot take care of her inpatient need : awaiting placement. Time Spent With Patient Time: Total time managing care of this patient today ____ minutes. Quality Stroke Does the patient have a stroke diagnosis?: No VTE Prior VTE?: No VTE Risk Level:: Medical - moderate - high VTE Device Contraindication: Treatment Not Indicated VTE Drug Contraindication: N/A - Med Ordered
[2022-05-01 19:06] VITALS: BP 125/63; PULSE 74; RESP 20; TEMP 36.2; O2SAT 97
--- NOTE | 2022-05-01 19:07 | PC.NURSE ---
1254. pt told staff that pt wants to , could not live like this anymore and pt wants to go home. MD Dr Rivera notified Reassess pt said she has no thought of harming herself and no plan of harming herself.
[2022-05-01] MEDS: Enoxaparin Sodium 30 MG/0.3 ML SYRINGE SUBCUT (23:52)
[2022-05-02] VITALS: BP 125/68; PULSE 64; RESP 20; TEMP 36.1; O2SAT 96
[2022-05-02 03:42] VITALS: BP 189/84; PULSE 67; RESP 20; TEMP 36.6; O2SAT 97
[2022-05-02 07:49] VITALS: BP 145/78; PULSE 70; RESP 20; TEMP 36.6; O2SAT 97
[2022-05-02] MEDS: 0.9 % Sodium Chloride Flush 3 ML SYRINGE IVFLUSH ×3 (07:59→22:28)
[2022-05-02] MEDS: dexAMETHasone sod phosphate 4 MG/ML VIAL 6 MG IVPUSH (07:59)
[2022-05-02] MEDS: Megestrol Acetate 400 MG/10 ML ORAL.SUSP PO (08:27)
--- NOTE | 2022-05-02 11:25 | MHC.CM.PN ---
LTC bed search in progress. A clinical update has been sent to facilities. No bed offers received. CM will follow for placement. DP LTC via BLS.
[2022-05-02 11:35] VITALS: BP 138/82; PULSE 68; RESP 20; TEMP 36.2; O2SAT 98
--- NOTE | 2022-05-02 11:57 | MHC.CLN ---
F/U PO INTAKE POOR CONSUMING 25% DIET RX: REGULAR-APPROPRIATE PT RECEIVING ENSURE BID AND MAGIC CUP TO INCREASE KCALS (PREFERS VANILLA) ENSURE SUPPLEMENT PROVIDES 700KCALS, 40G PROTEIN WITH 100% ACCEPTANCE CONTINUE TO MONITOR PO INTAKE AND SUPPLEMENT ACCEPTANCE
--- NOTE | 2022-05-02 13:39 | P.PNIM_ITS ---
Subjective Subjective Date of Service: 05/02/22 Interval History: f/u on weakness d/t covid Review of Systems No new changes, reamins on O2 sating around 98 but increased O2 requirement to 3 liters(please taper oxygen) Physical Exam Vital Signs: Vital Signs: Last Vital Signs Temp 97.2 F 05/02/22 11:35 Pulse 68 05/02/22 11:35 Resp 20 05/02/22 11:35 BP 138/82 05/02/22 11:35 Pulse Ox 98 05/02/22 11:35 O2 Del Method 05/02/22 11:35 O2 Flow Rate 3 05/02/22 11:35 BMI result Body Mass Index 15.0 General: AO X 2, no acute distress Resp:? CTA bilateral CVS: S1,S2,RRR GI: +BS, NT, no distention Skin: No rash Neuro:? motor grossly intact Psych: appropriate affect Objective Data Active Medications Acetaminophen (Acetaminophen 325 Mg Tablet) 650 mg PO Q6H PRN PRN Reason: Pain, Mild (Pain Scale 1-3) Last Admin: 05/01/22 08:57 Dose: 650 mg Documented By: FREDI Benzocaine (Throat Lozenge, Medicated Lozenge) 1 lozenge MUCOUS MEM Q2H PRN PRN Reason: Sore Throat Enoxaparin Sodium (Enoxaparin Sodium 30 Mg/0.3 Ml Syringe) 30 mg SUBCUT Q24H [facility] Last Admin: 05/01/22 23:52 Dose: 30 mg Documented By: JONH Mirtazapine (Mirtazapine 7.5 Mg Tablet) 7.5 mg PO BEDTIME MRX1 PRN PRN Reason: insomnia Ondansetron HCl (Ondansetron Hcl 4 Mg/2 Ml Vial) 4 mg IVPUSH Q8H PRN PRN Reason: Nausea and Vomiting Pharmacy Consult (Consult Rx Perform Med Rec) 1 each MISCELLANE ONCE PRN PRN Reason: Consult order Sodium Chloride (0.9 % Sodium Chloride Flush 3 Ml Syringe) 3 ml IVFLUSH QSHIFT [facility] Last Admin: 05/02/22 07:59 Dose: 3 ml Documented By: FREDI Labs 04/23/22 08:55 04/23/22 08:54 Assessment and Plan (1) Generalized weakness: Status: Acute (2) UTI (urinary tract infection): Status: Acute (3) COVID-19 virus infection: Status: Acute (4) Dementia with psychotic disturbance: Status: Acute Plan 87-year-old who was recently discharged from [facility] for management of delirium and psychotic dementia presents to the hospital with weakness found to have COVID-19 infection acute UTI acute COVID-19 infection, mild hypoxia but improved - afebrile, no leukocytosis, no imaging suggestive of pneumonia -Decadron 6 mg daily -completed ,taper oxygen slowly acute UTI, culture negative, completed Abx generalized weakness, adult failure to thrive po intake improvin-as per the staff patient ate cookies, bread, also Ensure. - secondary to uti and covid - PT eval prior to dc moderate protein calory malnutrition: ensure added, poor prognosis with dementia, malnutrition, paliative care discussed with family but they are not ready anxiety if becomes excessive will try ativan patient expressed ''?SI '' to staff- will need n clearence upon discharge. DVT prophylaxis:? Lovenox Patient is doing much better, family updated . At this point waiting for placement as family cannot take care of her inpatient need : awaiting placement. Time Spent With Patient Time: Total time managing care of this patient today ____ minutes. Quality Stroke Does the patient have a stroke diagnosis?: No VTE Prior VTE?: No VTE Risk Level:: Medical - moderate - high VTE Device Contraindication: Treatment Not Indicated VTE Drug Contraindication: N/A - Med Ordered
[2022-05-02 16:00] VITALS: BP 127/66; PULSE 83; RESP 15; TEMP 36.1; O2SAT 95
[2022-05-02 19:34] VITALS: BP 133/78; PULSE 68; RESP 14; TEMP 36.2; O2SAT 96
[2022-05-03] VITALS (8 sets, daily range): BP systolic 129–162; BP diastolic 66–90; PULSE 54–74; RESP 16–22; TEMP 36.6–37.3; O2SAT 94–98
[2022-05-03] MEDS: 0.9 % Sodium Chloride Flush 3 ML SYRINGE IVFLUSH ×3 (08:02→22:34)
--- NOTE | 2022-05-03 11:25 | HO.PM.IMPN ---
Subjective Subjective Date of Service: 05/03/22 Interval History: f/u on weakness d/t covid Review of Systems No new changes, reamins on O2 sating around 98 but increased O2 requirement to 3 liters(please taper oxygen) Physical Exam Vital Signs: Vital Signs: Last Vital Signs Temp 99.2 F 05/03/22 10:57 Pulse 73 05/03/22 10:57 Resp 20 05/03/22 10:57 BP 129/66 05/03/22 10:57 Pulse Ox 94 05/03/22 10:57 O2 Del Method 05/03/22 10:57 O2 Flow Rate 1 05/03/22 10:57 BMI result Body Mass Index 15.0 General: AO X 2, no acute distress Resp:? CTA bilateral CVS: S1,S2,RRR GI: +BS, NT, no distention Skin: No rash Neuro:? motor grossly intact Psych: appropriate affect Objective Data Active Medications Acetaminophen (Acetaminophen 325 Mg Tablet) 650 mg PO Q6H PRN PRN Reason: Pain, Mild (Pain Scale 1-3) Last Admin: 05/01/22 08:57 Dose: 650 mg Documented By: FREDI Benzocaine (Throat Lozenge, Medicated Lozenge) 1 lozenge MUCOUS MEM Q2H PRN PRN Reason: Sore Throat Enoxaparin Sodium (Enoxaparin Sodium 30 Mg/0.3 Ml Syringe) 30 mg SUBCUT Q24H [facility] Last Admin: 05/03/22 00:26 Dose: Not Given Documented By: MIL Non-Admin Reason: Patient Refused Mirtazapine (Mirtazapine 7.5 Mg Tablet) 7.5 mg PO BEDTIME MRX1 PRN PRN Reason: insomnia Ondansetron HCl (Ondansetron Hcl 4 Mg/2 Ml Vial) 4 mg IVPUSH Q8H PRN PRN Reason: Nausea and Vomiting Pharmacy Consult (Consult Rx Perform Med Rec) 1 each MISCELLANE ONCE PRN PRN Reason: Consult order Sodium Chloride (0.9 % Sodium Chloride Flush 3 Ml Syringe) 3 ml IVFLUSH QSHIFT [facility] Last Admin: 05/03/22 08:02 Dose: 3 ml Documented By: TAMMY Labs 04/23/22 08:55 04/23/22 08:54 Assessment and Plan (1) Generalized weakness: Status: Acute (2) UTI (urinary tract infection): Status: Acute (3) COVID-19 virus infection: Status: Acute (4) Dementia with psychotic disturbance: Status: Acute Plan 87-year-old who was recently discharged from [facility] for management of delirium and psychotic dementia presents to the hospital with weakness found to have COVID-19 infection acute UTI acute COVID-19 infection, mild hypoxia but improved - afebrile, no leukocytosis, no imaging suggestive of pneumonia -Decadron 6 mg daily -completed ,taper oxygen slowly acute UTI, culture negative, completed Abx generalized weakness, adult failure to thrive po intake improvin-as per the staff patient ate cookies, bread, also Ensure. - secondary to uti and covid - PT eval prior to dc moderate protein calory malnutrition: ensure added, poor prognosis with dementia, malnutrition, paliative care discussed with family but they are not ready anxiety if becomes excessive will try ativan patient expressed ''?SI '' to staff- will need n clearence upon discharge. DVT prophylaxis:? Lovenox Patient is doing much better, family updated . At this point waiting for placement as family cannot take care of her inpatient need : awaiting placement. Time Spent With Patient Time: Total time managing care of this patient today ____ minutes. Quality Stroke Does the patient have a stroke diagnosis?: No VTE Prior VTE?: No VTE Risk Level:: Medical - moderate - high VTE Device Contraindication: Treatment Not Indicated VTE Drug Contraindication: N/A - Med Ordered
[2022-05-03] MEDS: Enoxaparin Sodium 30 MG/0.3 ML SYRINGE SUBCUT (22:33)
[2022-05-03 23:11] LABS: B Type Natriuretic Peptide < 10 pg/mL (<100)
[2022-05-04 04:00] VITALS: BP 112/61; PULSE 75; RESP 20; TEMP 36.6; O2SAT 96
[2022-05-04 07:52] VITALS: BP 107/55; PULSE 64; RESP 20; TEMP 37; O2SAT 98
[2022-05-04] MEDS: 0.9 % Sodium Chloride Flush 3 ML SYRINGE IVFLUSH ×2 (07:52→17:10)
[2022-05-04 11:29] VITALS: BP 122/60; PULSE 72; RESP 20; TEMP 36.7; O2SAT 97
--- NOTE | 2022-05-04 14:32 | HO.PM.IMPN ---
Subjective Subjective Date of Service: 05/04/22 Interval History: f/u on weakness d/t covid Review of Systems No new changes, reamins on O2 sating around 97 but increased O2 requirement to 2 liters(please taper oxygen) askin for donut and muffin,in addition takin ensure. Physical Exam Vital Signs: Vital Signs: Last Vital Signs Temp 98.1 F 05/04/22 11:29 Pulse 72 05/04/22 11:29 Resp 20 05/04/22 11:29 BP 122/60 05/04/22 11:29 Pulse Ox 97 05/04/22 11:29 O2 Del Method 05/04/22 11:29 O2 Flow Rate 2 05/04/22 11:29 BMI result Body Mass Index 15.0 General: AO X 2, no acute distress Resp:? CTA bilateral CVS: S1,S2,RRR GI: +BS, NT, no distention Skin: No rash Neuro:? motor grossly intact Psych: appropriate affect Objective Data Active Medications Acetaminophen (Acetaminophen 325 Mg Tablet) 650 mg PO Q6H PRN PRN Reason: Pain, Mild (Pain Scale 1-3) Last Admin: 05/01/22 08:57 Dose: 650 mg Documented By: FREDI Benzocaine (Throat Lozenge, Medicated Lozenge) 1 lozenge MUCOUS MEM Q2H PRN PRN Reason: Sore Throat Enoxaparin Sodium (Enoxaparin Sodium 30 Mg/0.3 Ml Syringe) 30 mg SUBCUT Q24H [facility] Last Admin: 05/03/22 22:33 Dose: 30 mg Documented By: MIL Mirtazapine (Mirtazapine 7.5 Mg Tablet) 7.5 mg PO BEDTIME MRX1 PRN PRN Reason: insomnia Ondansetron HCl (Ondansetron Hcl 4 Mg/2 Ml Vial) 4 mg IVPUSH Q8H PRN PRN Reason: Nausea and Vomiting Pharmacy Consult (Consult Rx Perform Med Rec) 1 each MISCELLANE ONCE PRN PRN Reason: Consult order Sodium Chloride (0.9 % Sodium Chloride Flush 3 Ml Syringe) 3 ml IVFLUSH QSHIFT [facility] Last Admin: 05/04/22 07:52 Dose: 3 ml Documented By: TAMMY Labs 04/23/22 08:55 04/23/22 08:54 Labs: Laboratory Results - last 24 hr 05/03/22 22:45 B-Natriuretic Peptide < 10 Assessment and Plan (1) Generalized weakness: Status: Acute (2) UTI (urinary tract infection): Status: Acute (3) COVID-19 virus infection: Status: Acute (4) Dementia with psychotic disturbance: Status: Acute Plan 87-year-old who was recently discharged from [facility] for management of delirium and psychotic dementia presents to the hospital with weakness found to have COVID-19 infection acute UTI acute COVID-19 infection, mild hypoxia but improved - afebrile, no leukocytosis, no imaging suggestive of pneumonia -Decadron 6 mg daily -completed ,taper oxygen slowly acute UTI, culture negative, completed Abx generalized weakness, adult failure to thrive po intake improvin-as per the staff patient ate cookies, bread, also Ensure. - secondary to uti and covid - PT eval prior to dc moderate protein calory malnutrition: ensure added, poor prognosis with dementia, malnutrition, paliative care discussed with family but they are not ready anxiety if becomes excessive will try ativan patient expressed ''?SI '' to staff- will need n clearence upon discharge. DVT prophylaxis:? Lovenox Patient is doing much better, family updated . At this point waiting for placement as family cannot take care of her inpatient need : awaiting placement. Time Spent With Patient Time: Total time managing care of this patient today ____ minutes. Quality Stroke Does the patient have a stroke diagnosis?: No VTE Prior VTE?: No VTE Risk Level:: Medical - moderate - high VTE Device Contraindication: Treatment Not Indicated VTE Drug Contraindication: N/A - Med Ordered
[2022-05-04 15:26] VITALS: BP 116/64; PULSE 71; RESP 19; TEMP 37.1; O2SAT 94
[2022-05-04 20:00] VITALS: BP 124/78; PULSE 89; RESP 18; TEMP 37.1; O2SAT 94
[2022-05-04] MEDS: Enoxaparin Sodium 30 MG/0.3 ML SYRINGE SUBCUT (21:21)
[2022-05-05] VITALS (7 sets, daily range): BP systolic 118–140; BP diastolic 62–73; PULSE 63–94; RESP 14–20; TEMP 36.2–37.4; O2SAT 94–98
[2022-05-05] MEDS: 0.9 % Sodium Chloride Flush 3 ML SYRINGE IVFLUSH ×3 (00:53→16:43)
--- NOTE | 2022-05-05 12:18 | HO.PM.IMPN ---
Subjective Subjective Date of Service: 05/05/22 Interval History: f/u on weakness d/t covid Review of Systems No new changes, reamins on O2 sating around 96 but increased O2 requirement to 2 liters(please taper oxygen) po intake somewhat improvin -eating bread today ,also taking ensure Physical Exam Vital Signs: Vital Signs: Last Vital Signs Temp 97.9 F 05/05/22 08:00 Pulse 76 05/05/22 08:00 Resp 18 05/05/22 08:00 BP 120/66 05/05/22 08:00 Pulse Ox 96 05/05/22 08:00 O2 Del Method 05/05/22 08:00 O2 Flow Rate 2 05/05/22 08:00 BMI result Body Mass Index 15.0 ?General: AO X 2, no acute distress Resp:? CTA bilateral CVS: S1,S2,RRR GI: +BS, NT, no distention Skin: No rash Neuro:? motor grossly intact Psych: appropriate affect Objective Data Active Medications Acetaminophen (Acetaminophen 325 Mg Tablet) 650 mg PO Q6H PRN PRN Reason: Pain, Mild (Pain Scale 1-3) Last Admin: 05/01/22 08:57 Dose: 650 mg Documented By: FREDI Benzocaine (Throat Lozenge, Medicated Lozenge) 1 lozenge MUCOUS MEM Q2H PRN PRN Reason: Sore Throat Enoxaparin Sodium (Enoxaparin Sodium 30 Mg/0.3 Ml Syringe) 30 mg SUBCUT Q24H [facility] Last Admin: 05/04/22 21:21 Dose: 30 mg Documented By: JULY Mirtazapine (Mirtazapine 7.5 Mg Tablet) 7.5 mg PO BEDTIME MRX1 PRN PRN Reason: insomnia Ondansetron HCl (Ondansetron Hcl 4 Mg/2 Ml Vial) 4 mg IVPUSH Q8H PRN PRN Reason: Nausea and Vomiting Pharmacy Consult (Consult Rx Perform Med Rec) 1 each MISCELLANE ONCE PRN PRN Reason: Consult order Sodium Chloride (0.9 % Sodium Chloride Flush 3 Ml Syringe) 3 ml IVFLUSH QSHIFT [facility] Last Admin: 05/05/22 09:47 Dose: 3 ml Documented By: ROSALIA Labs 04/23/22 08:55 04/23/22 08:54 Assessment and Plan (1) Generalized weakness: Status: Acute (2) UTI (urinary tract infection): Status: Acute (3) COVID-19 virus infection: Status: Acute (4) Dementia with psychotic disturbance: Status: Acute Plan 87-year-old who was recently discharged from [facility] for management of delirium and psychotic dementia presents to the hospital with weakness found to have COVID-19 infection acute UTI acute COVID-19 infection, mild hypoxia but improved - afebrile, no leukocytosis, no imaging suggestive of pneumonia -Decadron 6 mg daily -completed d/w staff taper oxygen and try sats off oxygen acute UTI, culture negative, completed Abx generalized weakness, adult failure to thrive po intake improvin-as per the staff patient ate cookies, bread, also Ensure. - secondary to uti and covid - PT eval prior to dc moderate protein calory malnutrition: ensure added, poor prognosis with dementia, malnutrition, paliative care discussed with family but they are not ready anxiety if becomes excessive will try ativan patient expressed ''?SI '' to staff- will need n clearence upon discharge. DVT prophylaxis:? Lovenox Patient is doing much better, family updated . At this point waiting for placement as family cannot take care of her try multiple times with family discussion-daughter does not show up. inpatient need : awaiting placement. Time Spent With Patient Time: Total time managing care of this patient today ____ minutes. Quality Stroke Does the patient have a stroke diagnosis?: No VTE Prior VTE?: No VTE Risk Level:: Medical - moderate - high VTE Device Contraindication: Treatment Not Indicated VTE Drug Contraindication: N/A - Med Ordered
[2022-05-06] MEDS: Enoxaparin Sodium 30 MG/0.3 ML SYRINGE SUBCUT ×2 (00:28→23:33)
[2022-05-06] MEDS: 0.9 % Sodium Chloride Flush 3 ML SYRINGE IVFLUSH ×2 (00:28→23:41)
[2022-05-06 03:47] VITALS: BP 132/65; PULSE 88; RESP 20; TEMP 37; O2SAT 96
[2022-05-06 07:45] VITALS: BP 135/65; PULSE 75; RESP 20; TEMP 36.7; O2SAT 97
[2022-05-06 11:24] VITALS: BP 127/61; PULSE 70; RESP 20; TEMP 37.1; O2SAT 96
--- NOTE | 2022-05-06 13:57 | HO.PM.IMPN ---
Subjective Subjective Date of Service: 05/06/22 Interval History: states she is hungry Review of Systems Review of Systems: Yes all other systems are reviewed and are negative Physical Exam Vital Signs: Vital Signs: Last Vital Signs Temp 98.8 F 05/06/22 11:24 Pulse 70 05/06/22 11:24 Resp 20 05/06/22 11:24 BP 127/61 05/06/22 11:24 Pulse Ox 96 05/06/22 11:24 O2 Del Method 05/06/22 11:24 O2 Flow Rate 2 05/06/22 11:24 BMI result Body Mass Index 15.0 Const: Other: Gen: in no acute distress, malnourished HEENT: sclera anicteric, moist mucus membranes Neck: supple Lungs: clear to auscultation bilaterally Heart: regular rate and rhythm, no murmurs Abd: soft, non-tender, non-distended Ext: no edema Skin: warm/well-perfused Neuro: alert, no focal findings Psych: appropriate affect Objective Data Active Medications Acetaminophen (Acetaminophen 325 Mg Tablet) 650 mg PO Q6H PRN PRN Reason: Pain, Mild (Pain Scale 1-3) Last Admin: 05/01/22 08:57 Dose: 650 mg Documented By: FREDI Benzocaine (Throat Lozenge, Medicated Lozenge) 1 lozenge MUCOUS MEM Q2H PRN PRN Reason: Sore Throat Enoxaparin Sodium (Enoxaparin Sodium 30 Mg/0.3 Ml Syringe) 30 mg SUBCUT Q24H [facility] Last Admin: 05/06/22 00:28 Dose: 30 mg Documented By: ALEJANDRA Mirtazapine (Mirtazapine 7.5 Mg Tablet) 7.5 mg PO BEDTIME MRX1 PRN PRN Reason: insomnia Ondansetron HCl (Ondansetron Hcl 4 Mg/2 Ml Vial) 4 mg IVPUSH Q8H PRN PRN Reason: Nausea and Vomiting Pharmacy Consult (Consult Rx Perform Med Rec) 1 each MISCELLANE ONCE PRN PRN Reason: Consult order Sodium Chloride (0.9 % Sodium Chloride Flush 3 Ml Syringe) 3 ml IVFLUSH QSHIFT [facility] Last Admin: 05/06/22 13:27 Dose: Not Given Documented By: MAIRA Non-Admin Reason: See Note Labs 04/23/22 08:55 04/23/22 08:54 Assessment and Plan (1) Generalized weakness: Status: Acute (2) UTI (urinary tract infection): Status: Acute (3) COVID-19 virus infection: Status: Acute (4) Dementia with psychotic disturbance: Status: Acute Plan d#20 87 year-old who was recently discharged from [facility] for management of delirium and psychotic dementia presents to the hospital with weakness found to have COVID-19 infection + acute UTI # acute hypoxic resp failure due to COVID-19 infection, - completed course of dexamethasone - wean off O2 as tolerated # UTI - completed course of antibiotics # generalized weakness # adult failure to thrive/mod protein-calorie malnutrition - supplements - LTC recommended, placement pending - family declines palliative care per Dr Rivera # anxiety, question of SI - Care Team evaluation prior to discharge # VTE ppx: LMWH # dispo: LTC In my clinical judgment, the patient requires continued inpatient hospitalization for the following reasons: safe disposition Time Spent With Patient Time: Total time managing care of this patient today __30__ minutes. Quality Stroke Does the patient have a stroke diagnosis?: No VTE Prior VTE?: No VTE Risk Level:: Medical - moderate - high VTE Device Contraindication: Treatment Not Indicated VTE Drug Contraindication: N/A - Med Ordered
[2022-05-06 15:34] VITALS: BP 130/68; PULSE 82; RESP 17; TEMP 37.2; O2SAT 96
[2022-05-06 20:00] VITALS: BP 132/78; PULSE 67; RESP 19; TEMP 37; O2SAT 97
[2022-05-06 23:54] VITALS: BP 142/68; PULSE 92; RESP 18; TEMP 36.8; O2SAT 92
[2022-05-07 03:50] VITALS: BP 128/76; PULSE 64; RESP 18; TEMP 36.4; O2SAT 98
[2022-05-07] MEDS: 0.9 % Sodium Chloride Flush 3 ML SYRINGE IVFLUSH ×2 (07:15→15:50)
[2022-05-07 07:28] VITALS: BP 122/71; PULSE 72; RESP 20; TEMP 37; O2SAT 95
--- NOTE | 2022-05-07 08:46 | MHC.CM.PN ---
The Care team was consulted yesterday. The recommendation is home; because the patient is at her baseline. A call to pts dtr was placed yesterday(home) afternoon and again this am(cell). T/W requested a return call to CM for DP. The dtr has also been asked to come in with Didier to discuss DP.
--- NOTE | 2022-05-07 10:32 | HO.PM.IMPN ---
Subjective Subjective Date of Service: 05/07/22 Interval History: c/o back pain breathing improved Review of Systems Review of Systems: Yes all other systems are reviewed and are negative Physical Exam Vital Signs: Vital Signs: Last Vital Signs Temp 98.6 F 05/07/22 07:28 Pulse 72 05/07/22 07:28 Resp 20 05/07/22 07:28 BP 122/71 05/07/22 07:28 Pulse Ox 95 05/07/22 07:28 O2 Del Method 05/07/22 07:28 O2 Flow Rate 2 05/07/22 07:28 BMI result Body Mass Index 15.0 Gen: in no acute distress, malnourished HEENT: sclera anicteric, moist mucus membranes Neck: supple Lungs: clear to auscultation bilaterally Heart: regular rate and rhythm, no murmurs Abd: soft, non-tender, non-distended Ext: no edema Skin: warm/well-perfused Neuro: alert, no focal findings Psych: appropriate affect Objective Data Active Medications Acetaminophen (Acetaminophen 325 Mg Tablet) 650 mg PO Q6H PRN PRN Reason: Pain, Mild (Pain Scale 1-3) Last Admin: 05/01/22 08:57 Dose: 650 mg Documented By: PHANLKATIE Benzocaine (Throat Lozenge, Medicated Lozenge) 1 lozenge MUCOUS MEM Q2H PRN PRN Reason: Sore Throat Enoxaparin Sodium (Enoxaparin Sodium 30 Mg/0.3 Ml Syringe) 30 mg SUBCUT Q24H [facility] Last Admin: 05/06/22 23:33 Dose: 30 mg Documented By: CONRAD Mirtazapine (Mirtazapine 7.5 Mg Tablet) 7.5 mg PO BEDTIME MRX1 PRN PRN Reason: insomnia Ondansetron HCl (Ondansetron Hcl 4 Mg/2 Ml Vial) 4 mg IVPUSH Q8H PRN PRN Reason: Nausea and Vomiting Pharmacy Consult (Consult Rx Perform Med Rec) 1 each MISCELLANE ONCE PRN PRN Reason: Consult order Sodium Chloride (0.9 % Sodium Chloride Flush 3 Ml Syringe) 3 ml IVFLUSH QSHIFT [facility] Last Admin: 05/07/22 07:15 Dose: 3 ml Documented By: RIOSCEL Labs 04/23/22 08:55 04/23/22 08:54 Assessment and Plan (1) Generalized weakness: Status: Acute (2) UTI (urinary tract infection): Status: Acute (3) COVID-19 virus infection: Status: Acute (4) Dementia with psychotic disturbance: Status: Acute Plan d#21 87 year-old who was recently discharged from [facility] for management of delirium and psychotic dementia presents to the hospital with weakness found to have COVID-19 infection + acute UTI # acute hypoxic resp failure due to COVID-19 infection - completed course of dexamethasone - wean off O2 as tolerated # UTI - completed course of antibiotics # generalized weakness # adult failure to thrive/mod protein-calorie malnutrition - supplements - LTC recommended, placement pending - family declines palliative care per Dr Rivera # anxiety, question of SI - Care Team evaluation- does not meet inpt psych criteria # VTE ppx: LMWH # dispo: LTC In my clinical judgment, the patient requires continued inpatient hospitalization for the following reasons: safe disposition Time Spent With Patient Time: Total time managing care of this patient today _25___ minutes. Quality Stroke Does the patient have a stroke diagnosis?: No VTE Prior VTE?: No VTE Risk Level:: Medical - moderate - high VTE Device Contraindication: Treatment Not Indicated VTE Drug Contraindication: N/A - Med Ordered
[2022-05-07] MEDS: Lidocaine 4 % Patch ADH..PATCH 1 PATCH TRANSDERMA (10:49)
[2022-05-07 11:29] VITALS: BP 120/66; PULSE 74; RESP 20; TEMP 37.2; O2SAT 94
--- NOTE | 2022-05-07 12:21 | MHC.CLN ---
F/U PO INTAKE REMAINS POOR DIET RX: REGULAR-APPROPRIATE PT RECEIVING ENSURE BID AND MAGIC CUP TO INCREASE KCALS (PREFERS VANILLA) ENSURE SUPPLEMENT PROVIDES 700KCALS, 40G PROTEIN WITH 100% ACCEPTANCE CONTINUE TO MONITOR PO INTAKE AND SUPPLEMENT ACCEPTANCE
[2022-05-07 15:09] VITALS: BP 116/61; PULSE 86; RESP 20; TEMP 36.8; O2SAT 96
[2022-05-07 19:14] VITALS: BP 107/59; PULSE 93; RESP 20; TEMP 36.7; O2SAT 96
[2022-05-08] VITALS: BP 122/66; PULSE 84; RESP 18; TEMP 36.2; O2SAT 96
[2022-05-08] MEDS: 0.9 % Sodium Chloride Flush 3 ML SYRINGE IVFLUSH ×2 (00:14→08:22)
[2022-05-08 04:00] VITALS: BP 120/66; PULSE 80; RESP 18; TEMP 36.2; O2SAT 96
[2022-05-08 07:03] VITALS: BP 113/61; PULSE 77; RESP 14; TEMP 36.8; O2SAT 97
[2022-05-08] MEDS: Lidocaine 4 % Patch ADH..PATCH 1 PATCH TRANSDERMA (08:22)
[2022-05-08 09:45] LABS: Hematocrit 42.4 % (37.0-47.0); Hemoglobin 13.8 g/dl (12.0-16.0); Mean Corpuscular HGB Conc 32.5 g/dl (31.0-35.0); Mean Corpuscular Hemoglobin 30.3 pg (27.0-33.0); Mean Corpuscular Volume 93.2 fL (80.0-98.0); PLT CLUMP 1; Red Blood Count 4.55 X10*6/uL (4.20-5.50); Red Cell Distribution Width 14.9 % (11.0-16.0)
[2022-05-08 09:47] LABS: White Blood Count 10.4 X10*3/uL (4.8-10.8)
[2022-05-08 09:58] LABS: Anion Gap 12 (12-20); Blood Urea Nitrogen 37 mg/dL (9-16); Calcium 8.7 mg/dL (8.4-10.2); Carbon Dioxide 21 mmol/L (22-29); Chloride 109 mmol/L (96-108); Creatinine Clr Calc Pharmacy 41.4; Estimated Glomerular Filt Rate > 60; Glucose Random 133 mg/dL (60-115); Potassium 4.7 mmol/L (3.3-5.1); Sodium 137 mmol/L (135-145)
[2022-05-08 11:03] VITALS: BP 111/64; PULSE 83; RESP 14; TEMP 36.9; O2SAT 94
[2022-05-08 12:04] VITALS: PULSE 100; PULSE 101; O2SAT 96; O2SAT 97
[2022-05-08] MEDS: Acetaminophen 325 MG TABLET 650 MG PO (12:09)
[2022-05-08 12:27] VITALS: O2SAT 93
--- NOTE | 2022-05-08 13:24 | MHC.CM.PN ---
IMM 05/08/22 Patient is discharged today to home today. Transportation will be provided by [facility] will provide home services. [facility] is scheduled 05/19 to assess for Home services.
--- NOTE | 2022-05-08 13:33 | W.MHC.F2F ---
Service Date Service Date: 05/08/22 Encounter Date of encounter: 05/08/22 Reasons for Services Signs and symptoms assessed: respiratory balance Reason for correction: neurological assessment, medication management, medication treatment and teach disease management Reason for physical therapy: home safety and mobility, therapeutic exercises, gait/transfer training, assess need for DME, ADL training and energy conservation MD Overseeing Care: Tong Garcia III Homebound: Leaving the home is medically contraindicated at this time without the asist of a device and/or another person due th the listed conditions above and below. Reason homebound: unsteady gait / fall risk, cognitively impaired / unsafe and weakness related to hospital stay Certification: Based on the above findings, I certify that this patient is confined to the home and needs intermittent correction care, physical therapy and/or speech therapy, or continues to need occupational therapy. The patient is under my care, and I have initiated the establishment of the plan of care. The patient will be followed by a physician who will periodically review the plan of care. Time Spent With Patient Time: Total time managing care of this patient today ____ minutes.
--- NOTE | 2022-05-08 13:36 | PM.DS ---
DS: Providers Provider Date of Service: 05/08/22 Date of admission: 04/17/22 23:46 Date of discharge: 05/08/22 Primary care physician: Tong Garcia III, MD Consults: 04/30/22 08:21 Consult to Psychiatry Routine Consulting Provider: Psych Covering Reason for consultation: decreased po intake ?FTT-?depression Has provider been notified: No 05/06/22 08:43 Consult to Crisis Stat Reason for consultation: per Dr engel pt expressed SI, needs clearance prior to d/c 05/06/22 10:47 Consult to Care Team Routine Comment: Reason for consultation: per Dr engel pt expressed SI, needs clearance prior to d/c DS: Diagnosis Discharge Diagnosis (1) Generalized weakness: Status: Acute (2) UTI (urinary tract infection): Status: Acute (3) COVID-19 virus infection: Status: Acute (4) Acute respiratory failure with hypoxia: Status: Acute (5) Moderate malnutrition: Status: Acute DS: Summary Hospital Course Hospital Course: from admission H+P by hospitalist Boo Flores MD, 04/17/22: 87-year-old female with past medical history of dementia with psychotic disturbance, hypertension, presents the hospital with complaints of weakness, on low appetite.? Of note patient was admitted and discharged from April 09 to from U unit for delirium and dementia with psychotic disturbance.? Family were concerned that patient has been feeling progressively weak, not eating, and not doing too well therefore EMS was called.? Patient herself reports significant weakness, denies any shortness of breath, no chest pain, no cough, no palpitations, no abdominal pain nausea or vomiting, no diarrhea constipation, no urinary symptoms and no lower extremity edema.? On arrival to the ED patient hemodynamically stable with temp of 101.8 degrees, respiratory rate of 26, patient has been placed on nasal cannula 2 L but unclear if patient was hypoxic Labs are significant for WBC count of 5.6, otherwise unremarkable, UA shows positive leukocyte Estrace and WBC, Serology shows positive COVID-19 infection.? Patient reports history of vaccination x1 Chest x-ray shows no acute pulmonary process, mild elevation of left hemidiaphragm with mild left basilar subsegmental atelectasis 87 year-old who was recently discharged from U for management of delirium and psychotic dementia presents to the hospital with weakness found to have COVID-19 infection + acute UTI. She was treated with a course of dexamethasone due to hypoxia. She was weaned off of oxygen. She completed a course of antibiotics for UTI. She was started on oral supplements for moderate malnutrition. Palliative care was declined by her family. LTC placement was considered but ultimately she went to live with her significant other. Time Spent with Patient Time attestation: Total time managing care of this patient today40 ____ minutes. Discharge coordination time: Greater than 30 minutes Quality: Safe Use of Opioids Does Pt have an Active Cancer Diagnosis on the Problem List?: No Quality: Stroke Does the patient have a stroke diagnosis?: No Physical Exam Vital Signs: Vital Signs: Last Vital Signs Temp 98.4 F 05/08/22 11:03 Pulse 83 05/08/22 11:03 Resp 14 05/08/22 11:03 BP 111/64 05/08/22 11:03 Pulse Ox 93 05/08/22 12:27 O2 Del Method 05/08/22 12:27 O2 Flow Rate 2 05/08/22 11:03 BMI result Body Mass Index 15.0 Gen: in no acute d istress, malnouris hed HEENT: sclera anicteric, moist m ucus membranes Nec k: supple Lungs: c lear to auscultati on bilaterally Hea rt: regular rate a nd rhythm, no murm urs Abd: soft, non -tender, non-diste nded Ext: no edema Skin: warm/well-p erfused Neuro: elaine rt, no focal findi ngs Psych: appropr iate affect DS: Data Data Completed and Pending Completed studies during hospitalization [Text1]: Laboratory Results WBC 10.4 X10*3/uL (4.8-10.8) 05/08/22 09:25 RBC 4.55 X10*6/uL (4.20-5.50) 05/08/22 09:25 Hgb 13.8 g/dl (12.0-16.0) 05/08/22 09:25 Hct 42.4 % (37.0-47.0) 05/08/22 09:25 MCV 93.2 fL (80.0-98.0) 05/08/22 09:25 MCH 30.3 pg (27.0-33.0) 05/08/22 09:25 MCHC 32.5 g/dl (31.0-35.0) 05/08/22 09:25 RDW 14.9 % (11.0-16.0) 05/08/22 09:25 Plt Count TNP 05/08/22 09:25 MPV Not Reportable 05/08/22 09:25 Immature Gran % (Auto) 0.2 % (0.0-0.4) 04/18/22 06:09 Neut % (Auto) 58.8 % (45-73) 04/18/22 06:09 Lymph % (Auto) 19.8 % (20-40) L 04/18/22 06:09 [place] % (Auto) 20.5 % (2-11) H 04/18/22 06:09 Eos % (Auto) 0.5 % (0-4) 04/18/22 06:09 Baso % (Auto) 0.2 % (0-2) 04/18/22 06:09 Lymph # (Auto) 0.8 X10*3/uL (1.2-4.9) L 04/18/22 06:09 [place] # (Auto) 0.8 X10*3/uL (0.1-1.2) 04/18/22 06:09 Eos # (Auto) 0.0 X10*3/uL (0.0-0.4) 04/18/22 06:09 Baso # (Auto) 0.0 X10*3/uL (0.0-0.2) 04/18/22 06:09 Abs Immat Gran (auto) 0.01 X10*3/uL (0.00-0.03) 04/18/22 06:09 Absolute Neuts (auto) 2.4 x10*3/uL (2.0-8.3) 04/18/22 06:09 Absolute Nucleated RBC 0.000 X10*3/uL (0.0-0.012) 05/08/22 09:25 Nucleated RBC % (auto) 0.0 /100WBC (0.0-0.2) 05/08/22 09:25 Neutrophils % (Manual) 80 % (45-73) H 04/17/22 17:24 Band Neutrophils % 3 % (3-5) 04/17/22 17:24 Lymphocytes % (Manual) 5 % (20-40) L 04/17/22 17:24 Monocytes % (Manual) 9 % (2-11) 04/17/22 17:24 Eosinophils % (Manual) 3 % (0-4) 04/17/22 17:24 Abs Neuts (Manual) 4.6 X10*3/uL (2.0-8.3) 04/17/22 17:24 Lymphocytes # (Manual) 0.3 X10*3/uL (1.2-4.9) L 04/17/22 17:24 Monocytes # (Manual) 0.5 X10*3/uL (0.1-1.2) 04/17/22 17:24 Eosinophils # (Manual) 0.2 X10*3/uL (0.0-0.4) 04/17/22 17:24 Toxic Granulation PRESENT 04/17/22 17:24 Platelet Estimate DECREASED (NORMAL) 04/17/22 17:24 Large Platelets PRESENT 04/17/22 17:24 Plt Morphology Comment NOTED 04/17/22 17:24 RBC Morphology NOTED 04/17/22 17:24 Basophilic Stippling 1+ (0-2) /OIF 04/17/22 17:24 Microcytosis 1+ (5-14) /OIF 04/17/22 17:24 Vera Cells 2+ (3-5) /OIF 04/17/22 17:24 Acanthocytes (Spur) 1+ (0-2) /OIF 04/17/22 17:24 Smear Tech's Comments VERIFIED 04/18/22 06:09 VBG pH 7.41 (7.32-7.43) 04/17/22 21:32 VBG pCO2 55 mmHg 04/17/22 21:32 VBG pO2 32 mmHg 04/17/22 21:32 VBG HCO3 35 mmol/L (22-26) H 04/17/22 21:32 VBG O2 Saturation 40.0 % 04/17/22 21:32 VBG Base Excess 9.0 mmol/L 04/17/22 21:32 Sodium 137 mmol/L (135-145) 05/08/22 02:18 Potassium 4.7 mmol/L (3.3-5.1) D 05/08/22 02:18 Chloride 109 mmol/L (96-108) H 05/08/22 02:18 Carbon Dioxide 21 mmol/L (22-29) L 05/08/22 02:18 Anion Gap 12 (12-20) 05/08/22 02:18 BUN 37 mg/dL (9-16) H 05/08/22 02:18 Creatinine 0.64 mg/dL (0.5-1.4) 05/08/22 02:18 Estim Creat Clear Calc 41.4 05/08/22 02:18 Estimated GFR > 60 05/08/22 02:18 Random Glucose 133 mg/dL (60-115) H 05/08/22 02:18 Lactic Acid 1.2 mmol/L (0.5-2.0) 04/17/22 17:23 Calcium 8.7 mg/dL (8.4-10.2) D 05/08/22 02:18 Magnesium 1.9 mg/dL (1.6-2.6) 04/17/22 17:24 Total Bilirubin 0.7 mg/dL (0.0-1.0) 04/17/22 17:24 Direct Bilirubin 0.2 mg/dL (0.0-0.5) 04/17/22 17:24 AST 15 U/L (5-31) 04/17/22 17:24 ALT 8 U/L (0-31) 04/17/22 17:24 Alkaline Phosphatase 61 U/L (39-117) 04/17/22 17:24 Troponin I High Sens 15.1 ng/L (<3.5-17.0) 04/17/22 17:23 B-Natriuretic Peptide < 10 pg/mL (<100) 05/03/22 22:45 Total Protein 6.2 g/dL (6.5-8.0) L 04/17/22 17:24 Albumin 3.8 g/dL (3.5-5.0) 04/17/22 17:24 Urine Color Yellow 04/18/22 02:13 Urine Appearance Clear 04/18/22 02:13 Urine pH 6.0 (5.0-9.0) 04/18/22 02:13 Ur Specific [place] 1.020 (1.005-1.025) 04/18/22 02:13 Urine Protein Trace mg/dL (Neg-Trace) 04/18/22 02:13 Urine Glucose (UA) Negative mg/dL (Negative) 04/18/22 02:13 Urine Ketones Negative mg/dL (Negative) 04/18/22 02:13 Urine Blood Negative (Negative) 04/18/22 02:13 Urine Nitrite Negative (Negative) 04/18/22 02:13 Ur Leukocyte Esterase Moderate (2+) (Negative) H 04/18/22 02:13 Urine RBC 3-5 /HPF (0-2) H 04/18/22 02:13 Urine WBC 6-10 /HPF (0-5) H 04/18/22 02:13 Ur Squamous Epith Cells 3-5 /HPF (0-2) 04/18/22 02:13 Urine Bacteria Trace (None Seen) 04/18/22 02:13 Hyaline Casts 0-2 /LPF (0-2) 04/18/22 02:13 Urine Opiates Screen Not Detected (Not Detect) 04/18/22 02:13 Urine Fentanyl Screen Not Detected (Not Detect) 04/18/22 02:13 Ur Barbiturates Screen Not Detected (Not Detect) 04/18/22 02:13 Ur Phencyclidine Scrn Not Detected (Not Detect) 04/18/22 02:13 Ur Amphetamines Screen Not Detected (Not Detect) 04/18/22 02:13 U Benzodiazepines Scrn Not Detected (Not Detect) 04/18/22 02:13 Urine Cocaine Screen Not Detected (Not Detect) 04/18/22 02:13 U Marijuana (THC) Screen Not Detected (Not Detect) 04/18/22 02:13 COVID-19 (GILLIAN) Positive (Negative) A 04/26/22 13:40 COVID-19 Clin Com See Note 04/26/22 13:40 Influenza Type A (TIFFANIE) Negative (Negative) 04/17/22 17:24 Influenza Type B (TIFFANIE) Negative (Negative) 04/17/22 17:24 Influenza A & B Note See Note 04/17/22 17:24 Impressions Chest X-Ray 05/03/22 22:48 IMPRESSION: No radiographic evidence of acute cardiopulmonary disease, unchanged since 04/27/2022. Discharge Plan Discharge Anticipated Discharge Date/Time: 05/08/22 13:29 Patient Disposition: Home Health Service Discharge Diagnosis: acute hypoxic resp failure due to COVID-19 infection UTI generalized weakness adult failure to thrive/mod protein-calorie malnutrition Referrals: Tong Garcia III, MD [Primary Care Provider] - 1 Week Discharge Medications: Continued albuterol sulfate 90 mcg/actuation HFA aerosol inhaler 2 puff inhalation Q6H PRN (Reason: wheezing) Qty: 1 0RF Discontinued trazodone 50 mg Tablet 50 mg PO BEDTIME MRX1 PRN (Reason: Insomnia) 30 Days Qty: 30 0RF lorazepam 0.5 mg Tablet 0.5 mg PO Q6H PRN (Reason: Anxiety) 30 Days Qty: 60 0RF haloperidol 1 mg tablet 1 mg PO TID Qty: 90 0RF clonidine HCl 0.1 mg tablet 1 tab PO BEDTIME 30 Days Qty: 30 0RF atenolol 25 mg tablet 2 tab PO DAILY 30 Days Qty: 60 0RF amlodipine 5 mg tablet 1 tab PO DAILY 30 Days Qty: 30 0RF simvastatin 20 mg tablet 1 tab PO BEDTIME 30 Days Qty: 30 0RF lisinopril 40 mg tablet 1 tab PO BID 30 Days Qty: 60 0RF Discharge Orders: Discharge Order (Routine); Ordered 05/08/22 Ordered By: Hanny Merchant Diet: Advance to usual diet Activity on Discharge: As tolerated Stand Alone Forms: Patient Portal Discharge page Care Plan Goals: recovery from Covid-19 and hospitalization adequate nnutrition Health Concerns: acute hypoxic resp failure due to COVID-19 infection UTI generalized weakness adult failure to thrive/mod protein-calorie malnutrition Plan of Treatment: take Ensure 1 can twice daily and increase protein intake stop blood pressure medications for now; blood pressure is normal without the use of antihypertensives home VNA services for PT, nursing Please follow up with your primary care doctor within 1 week. Return to the hospital if you experience recurrent or worsening symptoms. Assessment: See Discharge Summary.
--- NOTE | 2022-05-08 14:48 | MHC.CM.PN ---
IMM 05/08/22 Patient is discharged to home with Guillermina HERNANDEZA. Didier will provide transportation home. EC scheduled 05/19/22 to assess for Home services.
== END 2022-05-08 16:10 | disposition home health service (06) | DRG 177 ==
LOC: HO.ED 20:46 → HO.EDOVER 04-18 07:37 → HO.IMC 04-18 21:01 → HO.EDOVER 07-01 08:00 → HO.IMC 07-01 08:00
PROVIDERS: Internal Medicine; Admitting Provider Internal Medicine; Emergency Provider Emergency Medicine; PCP Internal Medicine; Visit Provider Family Medicine
DX: U07.1 COVID-19 (principal); J96.01 Acute respiratory failure with hypoxia; E44.0 Moderate protein-calorie malnutrition; F03.92 Unspecified dementia, unspecified severity, with psychotic disturbance; J98.11 Atelectasis; N39.0 Urinary tract infection, site not specified; Z68.1 Body mass index [BMI] 19.9 or less, adult; R45.851 Suicidal ideations; F41.9 Anxiety disorder, unspecified; F17.210 Nicotine dependence, cigarettes, uncomplicated; Z28.311 Partially vaccinated for COVID-19; Z71.6 Tobacco abuse counseling; Z88.0 Allergy status to penicillin; Z79.899 Other long term (current) drug therapy
CPT/HCPCS: 36415; 71045; 80048; 80076; 80307; 81001; 82803; 83605; 83735; 83880; 84484; 85007; 85025; 85027; 87040; 87086; 87502; 87635; 93005; 94640; 97162; 99285; J0696; J1100; J1650; S9485

== ENCOUNTER 2022-05-12 16:03 | Inpatient (IN) | payer MEDICARE, OTHER, SELFPAY ==
--- NOTE | ~2022-05-12 | XR_ITS ---
EXAMINATION: XR WRIST, RIGHT CLINICAL INFORMATION: Pain in the dorsum of the wrist COMPARISON: None TECHNIQUE: Four views of the right wrist. FINDINGS: There is osteopenia. There is no acute abnormality. No fracture or dislocation. There is marked joint narrowing between navicular bones and the multangular bones. First and second metacarpal carpal joints are narrowed with subchondral sclerosis of bone. There is joint narrowing of the radiocarpal joint. There is a significant volume of calcification of the TFCC without bone erosion. XR/XR wrist RT 2V IMPRESSION: 1. No acute abnormality. 2. Degenerative changes of the wrist. 3. Calcification of the TFCC.
--- NOTE | ~2022-05-12 | XR_ITS ---
EXAMINATION: XR WRIST, LEFT CLINICAL INFORMATION: Pain in the wrist COMPARISON: None TECHNIQUE: Four views of of the left wrist. FINDINGS: There is osteopenia. There is no acute abnormality. No fracture or dislocation. There is joint narrowing between navicular bones and the multangular bones. First and second metacarpal carpal joints are narrowed with subchondral sclerosis of bone. There is joint narrowing of the radiocarpal joint. There is a moderate volume of calcification of the TFCC without bone erosion. XR/XR wrist LT 2V IMPRESSION: 1. No acute abnormality. 2. Degenerative joint disease of the wrist. 3. Osteopenia.
[2022-05-12 16:20] VITALS: BP 135/80; BP 139/91; PULSE 110; PULSE 115; RESP 26; TEMP 36.8; O2SAT 95; O2SAT 97; BMI 14.0
--- NOTE | 2022-05-12 16:29 | ED.GENADULT ---
HPI - General Adult General Chief complaint: General Medical Stated complaint: KENNETH HAND PAIN/SWELLING,SOB,SEEN RECENTLY PER EMS Time Seen by Provider: 05/12/22 16:16 Source: patient and EMS Limitations: other (History of dementia) History of Present Illness HPI narrative: Patient comes to the emergency room complaining of diffuse body aches and bilateral wrist pain. Patient denies any falls. Patient states the pain started this morning. Patient denies any fever or chills. Patient states that her visiting nurse also noticed that her wrist are swollen more than usual. Related Data Previous Rx's Medication Instructions Recorded albuterol sulfate 90 mcg/actuation 2 puff inhalation Q6H PRN wheezing 04/15/22 aerosol inhaler #1 inhaler diclofenac sodium 1 % topical gel 4 g topical QID #100 grams 05/12/22 (Arthritis Pain (diclofenac)) naproxen 500 mg tablet 500 mg PO BID PRN pain #14 tabs 05/12/22 Allergies Allergy/AdvReac Type Severity Reaction Status Date / Time Penicillins [PENICILLINS] Allergy Mild RASH Verified 05/12/22 16:20 Review of Systems Review of Systems: Constitutional : No Weight loss, No Fever, No Chills, No Night Sweats, complaining of fatigue, generalized malaise ENT/Mouth : No Hearing loss, No Ear Pain, No Nasal Congestion, No Sinus Pain, No Hoarseness, No sore throat, No Rhinorrhea, No Swallowing Difficulty Eyes: No Eye Pain, No Swelling, No Redness, No Foreign Body, No Discharge, No Vision Changes Cardiovascular : No Chest Pain, No SOB, No Dyspnea on Exertion, No Orthopnea, No Edema, No Palpitations Respiratory : No Cough, No Sputum, No Wheezing, No Smoke Exposure, No Dyspnea Gastrointestinal : No Nausea, No Vomiting, No Diarrhea, No Constipation, No abdominal Pain, No Hematochezia, No Melena Genitourinary : no irregular bleeding, No Dysuria, No Urinary Frequency, No Hematuria, No Urinary Incontinence, No Urgency, No Flank Pain, No Urinary Flow Changes, No Hesitancy Musculoskeletal : Complaining of bilateral pain in the wrists in the dorsum, erythema. Skin : No Skin Lesions, No rash Neuro : No Weakness, No Numbness, No Paresthesias, No Loss of Consciousness, No Dizziness, No Headache Psych : No Anxiety/Panic, No Depression, No SI/HI/AH/VH, No Social Issues, Heme/Lymph: No Bruising, No Bleeding,No Lymphadenopathy Endocrine : No Polyuria, No Polydipsia, No Temperature Intolerance [facility] Past Medical History Medical History Dementia with psychotic disturbance Social History Social History Household Members: Family Household Members Other:: Lives with daughter and platonic male friend. Housing: House Do you presently have visiting nurse or other home services: No Alcohol intake: never Patient Tobacco Use Status: Current everyday Tobacco user Tobacco use type: Cigarette Cigarette Packs Per Day: 1 Cigarettes Per Day: 15 Years Smoked: Many. I stopped 17 years before I started again. Smoked in Last 30 Days: No Second Hand Smoke Exposure: Yes ( Didier, but doesn't smoke like I do. ) Use of substances other than those prescribed or required for medical reasons: No Advance Directives: Yes Advance Directives on File: Yes Advance Directives Date on File: 04/16/22 service: No Physical Exam ED Vital Signs: Vital Signs - 24 hr 05/12/22 16:20 05/12/22 16:59 05/12/22 18:00 Temperature 98.3 F 98 F 98.1 F Pulse Rate 110 H 99 100 Respiratory Rate 26 H 32 H 24 H Blood Pressure 139/91 H 108/70 105/75 Pulse Oximetry 95 94 95 Oxygen Delivery Method Room Air Room Air Room Air 05/12/22 19:14 Temperature 98.3 F Pulse Rate 106 H Respiratory Rate 28 H Blood Pressure 126/69 Pulse Oximetry 94 Oxygen Delivery Method Room Air BMI result Body Mass Index 14.0 Const Other: Appearance: Alert. Oriented X3. No acute distress. Eyes: Pupils equal, round and reactive to light. ENT: Pharynx normal. Neck: Normal inspection. Neck supple. No lymph nodes noted. No crepitus CVS: Normal heart rate and rhythm. Pulses normal. Normal S1 and S2 Respiratory: No respiratory distress. Breath sounds normal. No Wheezing. No rales Abdomen: Soft and nontender. No rigidity. No distention. Skin: Skin warm and dry. See extremities below Extremities: No lower extremity edema. There is mild edema on the dorsum of both wrists, mild erythema, painful to touch. Patient unwilling to move her wrist due to pain. Neuro: Oriented X 3. No motor deficit. No sensory deficit. Moving all extremities. No slurred speech. CN 2 through 12 grossly intact Psych: calm, cooperative, normal affect Course Course Course Narrative: -patient complaining of significant wrist pain bilaterally. Her breasts are slightly swollen, mild erythema present. Unwilling to move her wrist. Medications Administered Discontinued Medications Generic Name Dose Route Start Last Admin Trade Name Jasmin PRN Reason Stop Dose Admin Naproxen 500 mg 05/12/22 21:30 05/12/22 22:10 Naproxen 500 Mg Tablet PO 05/12/22 21:31 500 mg ONCE ONE Administration Medical Decision Making Medical Decision Making [facility] Narrative: -patient's white blood cell count is within normal limits. Patient's ESR and CRP and elevated. Given the patient's labs and physical exam and recent history of COVID/UTI, patient likely has reactive arthritis. -patient's creatinine within normal limits, patient will be sent home with NSAIDs to alleviate the pain. -I discussed the patient with Dr. Mg, who also reviewed the patient's chart. Unlikely to be septic joint. His specially bilaterally. Patient has no effusions the could be easily be drained. -patient given the 1st dose of naproxen in the emergency room. -as we were working on discharging the patient, family report that the patient has been too weak to walk since she was discharged from the hospital. They cannot take care of her at home. -urinalysis pending -case management consult in physical therapy consult pending Differential Diagnosis Differential Diagnoses: The differential diagnosis associated with the presentation includes (Reactive arthritis, contusions) Consult Healthcare Provider Management of the patient was discussed with: Hospitalist Lab Data [facility] Lab Attestation statement: I reviewed the patient's lab results. 05/12/22 16:58 05/12/22 16:58 Labs: Lab Results 05/12/22 05/12/22 05/12/22 Range/Units 16:58 16:58 16:58 WBC 10.8 (4.8-10.8) X10*3/uL RBC 3.79 L (4.20-5.50) X10*6/uL Hgb 11.8 L (12.0-16.0) g/dl Hct 34.9 L (37.0-47.0) % MCV 92.1 (80.0-98.0) fL MCH 31.1 (27.0-33.0) pg MCHC 33.8 (31.0-35.0) g/dl RDW 15.1 (11.0-16.0) % Plt Count 81 L (160-400) X10*3/uL MPV 13.8 H (9.4-12.3) fL Immature Gran % (Auto) 0.2 (0.0-0.4) % Neut % (Auto) 79.6 H (45-73) % Lymph % (Auto) 6.8 L (20-40) % [place] % (Auto) 13.2 H (2-11) % Eos % (Auto) 0.1 (0-4) % Baso % (Auto) 0.1 (0-2) % Lymph # (Auto) 0.7 L (1.2-4.9) X10*3/uL [place] # (Auto) 1.4 H (0.1-1.2) X10*3/uL Eos # (Auto) 0.0 (0.0-0.4) X10*3/uL Baso # (Auto) 0.0 (0.0-0.2) X10*3/uL Abs Immat Gran (auto) 0.02 (0.00-0.03) X10*3/uL Absolute Neuts (auto) 8.6 H (2.0-8.3) x10*3/uL Absolute Nucleated RBC 0.000 (0.0-0.012) X10*3/uL Nucleated RBC % (auto) 0.0 (0.0-0.2) /100WBC Smear Tech's Comments VERIFIED ESR 88 H (0-20) MM/HR Sodium 139 (135-145) mmol/L Potassium 4.1 (3.3-5.1) mmol/L Chloride 107 (96-108) mmol/L Carbon Dioxide 23 (22-29) mmol/L Anion Gap 13 (12-20) BUN 24 H (9-16) mg/dL Creatinine 0.63 (0.5-1.4) mg/dL Estim Creat Clear Calc 37.0 Estimated GFR > 60 Random Glucose 137 H (60-115) mg/dL Lactic Acid (0.5-2.0) mmol/L Uric Acid (2.4-5.7) mg/dL Calcium 8.5 (8.4-10.2) mg/dL Total Bilirubin 1.4 H (0.0-1.0) mg/dL Direct Bilirubin 0.5 (0.0-0.5) mg/dL AST 19 (5-31) U/L ALT 25 (0-31) U/L Alkaline Phosphatase 53 (39-117) U/L C-Reactive Protein 14.93 H (< or = 0.50) mg/dL Total Protein 5.2 L (6.5-8.0) g/dL Albumin 2.9 L (3.5-5.0) g/dL COVID-19 (GILLIAN) (Negative) COVID-19 Clin Com 05/12/22 05/12/22 05/12/22 Range/Units 16:58 16:58 16:58 WBC (4.8-10.8) X10*3/uL RBC (4.20-5.50) X10*6/uL Hgb (12.0-16.0) g/dl Hct (37.0-47.0) % MCV (80.0-98.0) fL MCH (27.0-33.0) pg MCHC (31.0-35.0) g/dl RDW (11.0-16.0) % Plt Count (160-400) X10*3/uL MPV (9.4-12.3) fL Immature Gran % (Auto) (0.0-0.4) % Neut % (Auto) (45-73) % Lymph % (Auto) (20-40) % [place] % (Auto) (2-11) % Eos % (Auto) (0-4) % Baso % (Auto) (0-2) % Lymph # (Auto) (1.2-4.9) X10*3/uL [place] # (Auto) (0.1-1.2) X10*3/uL Eos # (Auto) (0.0-0.4) X10*3/uL Baso # (Auto) (0.0-0.2) X10*3/uL Abs Immat Gran (auto) (0.00-0.03) X10*3/uL Absolute Neuts (auto) (2.0-8.3) x10*3/uL Absolute Nucleated RBC (0.0-0.012) X10*3/uL Nucleated RBC % (auto) (0.0-0.2) /100WBC Smear Tech's Comments ESR (0-20) MM/HR Sodium (135-145) mmol/L Potassium (3.3-5.1) mmol/L Chloride (96-108) mmol/L Carbon Dioxide (22-29) mmol/L Anion Gap (12-20) BUN (9-16) mg/dL Creatinine (0.5-1.4) mg/dL Estim Creat Clear Calc Estimated GFR Random Glucose (60-115) mg/dL Lactic Acid 1.1 (0.5-2.0) mmol/L Uric Acid 3.7 (2.4-5.7) mg/dL Calcium (8.4-10.2) mg/dL Total Bilirubin (0.0-1.0) mg/dL Direct Bilirubin (0.0-0.5) mg/dL AST (5-31) U/L ALT (0-31) U/L Alkaline Phosphatase (39-117) U/L C-Reactive Protein (< or = 0.50) mg/dL Total Protein (6.5-8.0) g/dL Albumin (3.5-5.0) g/dL COVID-19 (GILLIAN) Negative (Negative) COVID-19 Clin Com See Note Independent Interpretation I performed an independent interpretation of an: Plain X-Ray (My interpretation of patient's x-rays of right and left wrists: No fracture) Radiology Impression Discussion of test interpretation with radiology: I have reviewed the radiologist's reading. Radiologist Impression: FINDINGS: There is osteopenia. There is no acute abnormality. No fracture or dislocation. There is marked joint narrowing between navicular bones and the multangular bones. First and second metacarpal carpal joints are narrowed with subchondral sclerosis of bone. There is joint narrowing of the radiocarpal joint. There is a significant volume of calcification of the TFCC without bone erosion.? XR/XR wrist RT 2V IMPRESSION: 1.? No acute abnormality. 2.? Degenerative changes of the wrist. 3.? Calcification of the TFCC. 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 If you have any worsening or new symptoms, please return to the emergency room or call 911 Prescriptions: New naproxen 500 mg tablet 500 mg PO BID PRN (Reason: pain) Qty: 14 0RF diclofenac sodium [Arthritis Pain (diclofenac)] 1 % gel 4 g topical QID Qty: 100 0RF Rx Instructions: apply to single knee, ankle, foot; for foot includes sole/toes/top of foot No Action albuterol sulfate 90 mcg/actuation HFA aerosol inhaler 2 puff inhalation Q6H PRN (Reason: wheezing) Qty: 1 0RF
[2022-05-12 16:59] VITALS: BP 108/70; PULSE 99; RESP 32; TEMP 36.6; O2SAT 94
--- NOTE | 2022-05-12 17:04 | PC.NURSE ---
pt AOx3, VSS. hall monitor intact - sinus tach IV started and labs drawn. Pt reports significant pain in bilateral hands where swelling is noted.
[2022-05-12 17:16] LABS: Basophils Percent Auto 0.1 % (0-2); Eosinophils Percent Auto 0.1 % (0-4); Hematocrit 34.9 % (37.0-47.0); Hemoglobin 11.8 g/dl (12.0-16.0); Imm Gran Abs Auto 0.02 X10*3/uL (0.00-0.03); Imm Gran Pct Auto 0.2 % (0.0-0.4); Lymphocytes Absolute Auto 0.7 X10*3/uL (1.2-4.9); Lymphocytes Percent Auto 6.8 % (20-40); MANUAL DIFF FLAG SCAN; Mean Corpuscular HGB Conc 33.8 g/dl (31.0-35.0); Mean Corpuscular Hemoglobin 31.1 pg (27.0-33.0); Mean Corpuscular Volume 92.1 fL (80.0-98.0); Mean Platelet Volume 13.8 fL (9.4-12.3); Monocytes Absolute Auto 1.4 X10*3/uL (0.1-1.2); Monocytes Percent Auto 13.2 % (2-11); Neutrophils Absolute Auto 8.6 x10*3/uL (2.0-8.3); Neutrophils Percent Auto 79.6 % (45-73); PLT ABN DIST 1; Red Blood Count 3.79 X10*6/uL (4.20-5.50); Red Cell Distribution Width 15.1 % (11.0-16.0); SCAN SMEAR FLAG 1; White Blood Count 10.8 X10*3/uL (4.8-10.8)
[2022-05-12 17:20] LABS: COVID-19 Test Negative (Negative); IDNOW Serial# 9DB6401D
[2022-05-12 17:27] LABS: Lactic Acid 1.1 mmol/L (0.5-2.0)
[2022-05-12 17:31] LABS: Uric Acid 3.7 mg/dL (2.4-5.7)
[2022-05-12 17:32] LABS: Alanine Aminotransferase 25 U/L (0-31); Albumin Level 2.9 g/dL (3.5-5.0); Alkaline Phosphatase 53 U/L (39-117); Anion Gap 13 (12-20); Aspartate Amino Transferase 19 U/L (5-31); Bilirubin Direct 0.5 mg/dL (0.0-0.5); Bilirubin Total 1.4 mg/dL (0.0-1.0); Blood Urea Nitrogen 24 mg/dL (9-16); C Reactive Protein 14.93 mg/dL (< or = 0.50); Calcium 8.5 mg/dL (8.4-10.2); Carbon Dioxide 23 mmol/L (22-29); Chloride 107 mmol/L (96-108); Estimated Glomerular Filt Rate > 60; Glucose Random 137 mg/dL (60-115); Potassium 4.1 mmol/L (3.3-5.1); Sodium 139 mmol/L (135-145); Total Protein 5.2 g/dL (6.5-8.0)
[2022-05-12 17:45] LABS: Erythrocyte Sedimentation Rate 88 MM/HR (0-20)
[2022-05-12 17:56] LABS: Platelet Count 81 X10*3/uL (160-400)
[2022-05-12 17:57] LABS: SLIDE REVIEW VERIFIED
[2022-05-12 18:00] VITALS: BP 105/75; PULSE 100; RESP 24; TEMP 36.7; O2SAT 95
[2022-05-12 19:14] VITALS: BP 126/69; PULSE 106; RESP 28; TEMP 36.8; O2SAT 94
--- NOTE | 2022-05-12 19:15 | PC.NURSE ---
pt sleeping, woke to verbal stimulus, pt continues to c/o bilateral hand pain, vitals stable- pt remains sinus tach on monitor car operator, call mccann within reach, will continue to monitor
[2022-05-12] MEDS: NaPROXEN 500 MG TABLET PO (22:10)
--- NOTE | 2022-05-12 22:19 | PC.NURSE ---
Pt is ready for discharge. This RN called pt's family, who she lives with, and informed them that pt was ready to come home. Family then stated that pt was discharged from hospital admission on Thursday and has since been unable to walk on her own. Family is unable to assist the pt at home and provide care in her current condition. ED provider informed of current siuation. Plan to have pt seen by case management.
--- NOTE | 2022-05-12 23:02 | MHC.CM.ED ---
Met with patient at request of Dr. Barboza. Pt has diagnosis of dementia, but appears A&Ox3. Medical record reviewed, along with recent hospitalizations and CM notes. Recent hospitalization at [facility] [place]17[place]/08 for UTI and Covid. No bed offers. Pt d/c home at baseline with Guillermina LANDAVERDE and Referral to [facility] 05/19 home assessment. 04/10-04/15 hospitalization on [facility]/psych for hallucinations. D/C with follow up and medications. Pt states has been unable to walk at home since discharge. Weakness and incontinence. HCP on file. States daughter/HCP, Arleth Myers ([phone]) lives with her, but has been ill and unable to care for her. Pt friend/HCP #2 Didier Pelletier ([phone])lives with her and care for her, grocery shops and prepares meals. States he injured his shoulder and is unable to help her much. Pt uses a cane/walker. Had covid vax x1. Recent covid infection, with Covid recovered on 04/28/22. Pt is Covid negative today. CM did not call HCP/daughter due to lateness of hour (2300). Will need to call her in the morning to review plan of care. Pt is agreeable to PT evaluation and STR if recommended. Pt would like local referrals if possible. Referrals placed. Guillermina alerted to pt being in ED via [facility]. CM will follow for d/c needs.
[2022-05-13] VITALS (10 sets, daily range): BP systolic 101–142; BP diastolic 55–83; PULSE 66–91; RESP 15–30; TEMP 36.4–36.9; O2SAT 92–98
[2022-05-13 04:09] LABS: Appearance Urine Clear; Color Urine Dark Yellow; Glucose Urine UA Negative (Negative); Leukocyte Esterase Urine Trace (Negative); Nitrite Urine Negative (Negative); PH 5.5 (5.0-9.0); Specific Gravity - Urine 1.025 (1.005-1.025); UMIC TRIGGER UACC YES; Urine Blood Negative (Negative); Urine Ketones 15 mg/dL (Negative); Urine Protein 30 (1+) mg/dL (Neg-Trace)
[2022-05-13 04:17] LABS: Bacteria Urine None Seen (None Seen); WBC Urine 0-5 /HPF (0-5)
[2022-05-13] MEDS: 0.9 % Sodium Chloride 500 ML 999 ML IV (04:26)
--- NOTE | 2022-05-13 06:36 | PC.NURSE ---
pt is currently asleep, respirations even and unlabored, in no apparent distress at this time
--- NOTE | 2022-05-13 08:00 | PC.NURSE ---
Patient sat up in bed and given breakfast tray. Patient well appearing at this time.
--- NOTE | 2022-05-13 09:20 | PHA.MEDREC ---
Pharmacy Consult ? Medication Reconciliation Pharmacy has completed the medication reconciliation. Patient was just discharged on 05/08, patient was stopped on all medications except albuterol. Spoke to patients daughter Karo who also told me patient has not been taking any medications
--- NOTE | 2022-05-13 09:30 | PC.NURSE ---
pt alert and oriented to self/date and place, pt's skin pwd, respirations even and unlabored, pt denies pain at this time, pt reports that she would like to go home because she is more comfortable in her recliner
--- NOTE | 2022-05-13 10:05 | MHC.CM.ED ---
Addendum entered by Nettie Sutton 05/13/22 11:39: Received return telephone call from Arleth. Arleth agreeable to rehab and referral being broadcasted. Patient will need [facility] PAS Level 2. T/W already submitted for this. Original Note: Patient remains in ER. Physical therapy eval completed. Short term rehab is recommended. T/W attempted to speak with patient's daughter, Arleth, via telephone at [phone]. Left message requesting return telephone call. Continue to monitor for d/c needs.
--- NOTE | 2022-05-13 10:17 | PC.NURSE ---
[facility], checked in with lee ann our case management in regards to this , located a note from a [facility] [place]n andres that she spoke to protective services on 05/07/22. Al's number [phone] would like an update if and when the pt gets moved or d/c
--- NOTE | 2022-05-13 12:42 | MHC.CM.ED ---
Addendum entered by Nettie Sutton 05/13/22 13:18: Received notification from [facility] that they are no longer able to accept patient. Referral broadcasted within 50 miles. Original Note: [facility] and [facility] are able to offer a bed to patient. Spoke with Arleth via telephone at [phone]. Arleth accepts bed at [facility]. Facility made aware and asked to obtain insurance auth. Continue to monitor for d/c needs.
--- NOTE | 2022-05-13 15:58 | MHC.EDTECH ---
bladder scan: 209 changed and cleaned patient. still did not void.
--- NOTE | 2022-05-13 18:37 | PC.NURSE ---
patient sat up in bed and given dinner tray. Patient eating dinner at this time.
[2022-05-14] VITALS (15 sets, daily range): BP systolic 80–166; BP diastolic 40–91; PULSE 69–101; RESP 14–20; TEMP 36.3–36.8; O2SAT 92–97
--- NOTE | 2022-05-14 05:04 | MHC.EDTECH ---
PT was changed out of dirty hospital garment, linen replaced with freeshh sheets, PT repositioned for comfort and placed on PURWICK per RN
--- NOTE | 2022-05-14 09:00 | PC.NURSE ---
Changed pt linens, ate all of breakfast. Purewick in place.
--- NOTE | 2022-05-14 10:16 | MHC.CM.ED ---
Patient remains in ER. Patient's daughter, Arleth, aware [facility] can no longer accept patient. [facility] in [place], [place] is able to offer a bed. They will need insurance auth for [facility]. They also want family to be aware as of day 21 there will be a 196$ per day copay because they are not contracted with [facility]. [facility] verbalized understanding and is willing to offer a bed. Kelsey at [facility] is aware and is in the process of obtaining insurance auth. [place] requires additional paperwork that Kelsey will fax to to complete. Continue to monitor for d/c needs.
--- NOTE | 2022-05-14 12:03 | PHA.MEDREC ---
Pharmacy Consult ? Medication Reconciliation Pharmacy has completed the medication reconciliation.
--- NOTE | 2022-05-14 15:42 | PC.NURSE ---
Pt cleaned and changed, new purewick applied. Pt boosted on bed for comfort.
[2022-05-14] MEDS: lisinopriL 40 MG TABLET PO (21:51)
[2022-05-14] MEDS: traZODone HCL 50 MG TABLET PO (21:51)
[2022-05-14] MEDS: HaloperidoL 1 MG TABLET PO (21:51)
[2022-05-14] MEDS: Atorvastatin Calcium 10 MG TABLET PO (21:51)
[2022-05-14] MEDS: cloNIDine HCL 0.1 MG TABLET PO (21:51)
[2022-05-14] MEDS: Acetaminophen 325 MG TABLET 650 MG PO (21:52)
[2022-05-14] MEDS: 0.9 % Sodium Chloride 500 ML IV (23:26)
--- NOTE | 2022-05-14 23:31 | PC.NURSE ---
Addendum entered by Angela Faith 05/14/22 23:35: Pt also medicated with Lisinopril @ 2200. Addendum entered by Angela Faith 05/14/22 23:32: KENDRICK Bender @ bedside. Original Note: Cov/flu/RSV obtained. UA obtained. IVF infusing per MAY. Per RN, pt recently medicated @ 2200 with Clonidine, Haldol and Trazodone. Pts BP had been WNL prior to medication administration.
--- NOTE | 2022-05-14 23:41 | PC.NURSE ---
IVF infused per MAR.
[2022-05-14 23:45] LABS: Appearance Urine Clear; Color Urine Yellow; Glucose Urine UA Negative (Negative); Leukocyte Esterase Urine Moderate (2+) (Negative); Nitrite Urine Positive (Negative); PH 5.5 (5.0-9.0); UMIC TRIGGER UACC YES; Urine Blood Trace (Negative); Urine Ketones Negative (Negative); Urine Protein Negative (Neg-Trace)
[2022-05-14 23:49] LABS: Bacteria Urine 4+ (None Seen); Hyaline Casts Urine 0-2 /LPF (0-2); RBC Urine 0-2 /HPF (0-2); Squamous Epithelial Cell Urine 0-2 /HPF (0-2); UACC Culture Trigger YES
[2022-05-15] VITALS (17 sets, daily range): BP systolic 81–135; BP diastolic 41–69; PULSE 65–80; RESP 17–19; TEMP 36.6–37.2; O2SAT 93–98; BMI 14.0
[2022-05-15 00:21] LABS: Influenza A PCR NEGATIVE (Negative); Influenza B PCR NEGATIVE (Negative); Resp Syncy Virus RNA Qual PCR NEGATIVE (Negative); SARS COV2 PCR INHOUSE NEGATIVE (Negative)
[2022-05-15] MEDS: 0.9 % Sodium Chloride 1,000 ML 75 ML IVCONT (00:38)
--- NOTE | 2022-05-15 00:44 | PM.IMHP ---
History of Present Illness Date of Service: 05/15/22 Chief Complaint: Wrist pain 87-year-old female with a past medical history of hypertension, dementia with psychotic disturbance, history of UTIs; presented to the hospital initially on 05/12/2022 with a chief complaint of bilateral wrist pain; reportedly the patient has visiting nurse noted that her bilateral wrists social slightly swollen; patient was sent to the ER for further evaluation. Patient initially had negative workup, x-rays of the wrist were negative; no obvious signs of infection noted; patient has been kept in the ER for placement. Today when the RN was doing routine vitals patient blood pressure was noted to be on the lower side; prior to the episode patient was given Haldol, trazodone, lisinopril; ER team noted that patient has urine appears cloudy; urinalysis was abnormal consistent with UTI. Patient was given ceftriaxone in the ER which patient tolerated well. Admitted to the hospital for UTI. Patient is alert and awake, denies any complaints. Denies any chest pain palpitations lightheadedness and dizziness. I tried to find the patient's family contact information, no contact information in the patient's demographics. Review of all other systems is negative. [facility] Medical History Dementia with psychotic disturbance Social History Household Members: Family Household Members Other:: Lives with daughter and platonic male friend. Housing: House Do you presently have visiting nurse or other home services: No Alcohol intake: never Patient Tobacco Use Status: Current everyday Tobacco user Tobacco use type: Cigarette Cigarette Packs Per Day: 1 Cigarettes Per Day: 15 Years Smoked: Many. I stopped 17 years before I started again. Smoked in Last 30 Days: No Second Hand Smoke Exposure: Yes ( Didier, but doesn't smoke like I do. ) Use of substances other than those prescribed or required for medical reasons: No Advance Directives: Yes Advance Directives on File: Yes Advance Directives Date on File: 04/16/22 service: No Meds Allergies Allergy/AdvReac Type Severity Reaction Status Date / Time Penicillins [PENICILLINS] Allergy Mild RASH Verified 05/12/22 16:20 Active Medications: Current Medications Acetaminophen (Acetaminophen 325 Mg Tablet) 650 mg PO Q6H PRN PRN Reason: Pain, Mild (Pain Scale 1-3) Albuterol Sulfate (Albuterol Sulfate 90 Mcg 8 Gm Inhaler) 2 puff INHALE Q6H PRN PRN Reason: wheezing Amlodipine Besylate (Amlodipine Besylate 5 Mg Tablet) 5 mg PO DAILY [facility]; Protocol Atenolol (Atenolol 50 Mg Tablet) 50 mg PO DAILY [facility]; Protocol Atorvastatin Calcium (Atorvastatin Calcium 10 Mg Tablet) 10 mg PO BEDTIME [facility] Last Admin: 05/14/22 21:51 Dose: 10 mg Benzonatate (Benzonatate 100 Mg Capsule) 100 mg PO TID PRN PRN Reason: Cough Clonidine HCl (Clonidine Hcl 0.1 Mg Tablet) 0.1 mg PO BEDTIME [facility]; Protocol Last Admin: 05/14/22 21:51 Dose: 0.1 mg Haloperidol (Haloperidol 1 Mg Tablet) 1 mg PO TID [facility] Last Admin: 05/14/22 21:51 Dose: 1 mg Heparin Sodium (Porcine) (Heparin Sodium,Porcine 5,000 Unit/Ml Vial) 5,000 unit SUBCUT Q12H [facility] Sodium Chloride (Ns) 1,000 mls @ 75 mls/hr IVCONT .[id number] [facility] Last Admin: 05/15/22 00:38 Dose: 75 mls/hr Ceftriaxone Sodium 1 gm/ (Sodium Chloride) 50 mls @ 100 mls/hr IV Q24H [facility] Lisinopril (Lisinopril 40 Mg Tablet) 40 mg PO BID [facility]; Protocol Last Admin: 05/14/22 21:51 Dose: 40 mg Lorazepam (Lorazepam 0.5 Mg Tablet) 0.5 mg PO Q6H PRN PRN Reason: anxiety Melatonin (Melatonin 3 Mg Tablet) 6 mg PO BEDTIME PRN PRN Reason: Insomnia Senna (Sennosides 8.6 Mg Tablet) 17.2 mg PO BEDTIME PRN PRN Reason: Constipation Sodium Chloride (0.9 % Sodium Chloride Flush 3 Ml Syringe) 3 ml IVFLUSH QSHIFT [facility] Trazodone HCl (Trazodone Hcl 50 Mg Tablet) 50 mg PO BEDTIME [facility] Last Admin: 05/14/22 21:51 Dose: 50 mg Home Medications Medication Instructions Recorded Confirmed Last Taken Type amlodipine 5 mg tablet 1 tab PO DAILY 05/14/22 05/14/22 Unknown History atenolol 25 mg tablet 2 tab PO DAILY 05/14/22 05/14/22 Unknown History clonidine HCl 0.1 mg tablet 1 tab PO BEDTIME 05/14/22 05/14/22 Unknown History haloperidol 1 mg tablet 1 tab PO TID 05/14/22 05/14/22 Unknown History lisinopril 40 mg tablet 1 tab PO BID 05/14/22 05/14/22 Unknown History lorazepam 0.5 mg tablet 1 tab PO Q6H PRN anxiety 05/14/22 05/14/22 Unknown History lorazepam 1 mg tablet 1 tab PO Q8H PRN anxiety 05/14/22 05/14/22 Unknown History simvastatin 20 mg tablet 1 tab PO BEDTIME 05/14/22 05/14/22 Unknown History trazodone 50 mg tablet 1 tab PO BEDTIME 05/14/22 05/14/22 Unknown History Physical Exam Vital Signs and Narrative: Vital Signs: Last Vital Signs Temp 97.8 F 05/15/22 00:18 Pulse 80 05/14/22 23:41 Resp 16 05/14/22 23:41 BP 116/53 L 05/14/22 23:41 Pulse Ox 97 05/14/22 23:32 O2 Del Method 05/14/22 23:32 BMI result Body Mass Index 14.0 Gen: Appears be in no acute distress HEENT: NCAT, Moist mucosa. Pulmonary: Vesicular breath sounds, fair air entry CVS: Normal S1-S2 Abdomen: BS+, Soft, Nontender Extremities: Warm well perfused; bilateral wrists appears to be normal, range of motion intact. No tenderness elicited. Neuro: Alert and awake. Moves all extremities equally Results Labs 05/12/22 16:58 05/12/22 16:58 Labs: Laboratory Results - last 24 hr 05/14/22 05/14/22 23:24 23:25 Urine Color Yellow Urine Appearance Clear Urine pH 5.5 Ur Specific [place] 1.020 Urine Protein Negative Urine Glucose (UA) Negative Urine Ketones Negative Urine Blood Trace H Urine Nitrite Positive H Ur Leukocyte Esterase Moderate (2+) H Urine RBC 0-2 Urine WBC 11-20 H Ur Squamous Epith Cells 0-2 Urine Bacteria 4+ Hyaline Casts 0-2 Influenza Type A (PCR) NEGATIVE Influenza Type B (PCR) NEGATIVE RSV RNA Qual (PCR) NEGATIVE SARS-CoV-2 RNA (RT-PCR) NEGATIVE Assessment and Plan (1) UTI (urinary tract infection): Status: Acute Plan 87-year-old female with a past medical history of hypertension, dementia with psychotic disturbance, history of UTIs; presented to the hospital initially on 05/12/2022 with a chief complaint of bilateral wrist pain; reportedly the patient has visiting nurse noted that her bilateral wrists social slightly swollen; also initially kept in the ED for placement given workup was negative for wrist pain. Later patient became slightly hypotensive presumed in the setting of medication use; but urinalysis was abnormal consistent with UTI. Admitted for further management. UTI: Follow up cultures Continue ceftriaxone Dementia behavioral disturbance: Continue home Haldol, trazodone, Ativan p.r.n. Hypertension: Hold home amlodipine, lisinopril, clonidine, atenolol for now. May need medication titration at the time of discharge DVT prophylaxis: Subcu heparin Code status: Presumed full code. Unable to reach family. Will defer to the day hospitalist to tried to reach the patient's family with the help of the case management. Time Spent With Patient Time: Total time managing care of this patient today ____ minutes. Quality Stroke Does the patient have a stroke diagnosis?: No VTE Prior VTE?: No VTE Risk Level:: Medical - moderate - high VTE Device Contraindication: Treatment Not Indicated VTE Drug Contraindication: N/A - Med Ordered
[2022-05-15] MEDS: cefTRIAXone sodium 1 GM in 0.9 % Sodium Chloride 50 ML IV (00:47)
--- NOTE | 2022-05-15 00:53 | PC.NURSE ---
At 23:00 pt was hypotensive with BP 78/30 and asymptomatic. Pt denied any SOB or chest pain. This RN notified ED charge and PA Rajat. COV/FLU/RSV ordered, UA obtained, IVF infusing per May. BP obtained every 5 minutes. Once IVF was infused pts BP went up to 116/53 at 23:41. Will continue to monitor pts BP every 15 minutes and notified charge and PA if any changes occur.
--- NOTE | 2022-05-15 01:03 | PC.NURSE ---
At 00:00, pt became hypotensive again with BP 88/45 and asymptomatic. This RN notified charge and KENDRICK Earl of the pt being hypotensive. Will continue to monitor pts BP.
--- NOTE | 2022-05-15 01:12 | PC.NURSE ---
At 00:30 Pts BP went down to 81/45. This RN assess pt and was asysmptomic. This RN notified ED charge and KENDRICK Earl. New orders were given. IVF infusing per MAR, pts HOB supine, and pt attached to laboratory monitor. Pt now admitted and will continue to monitor pts BP.
[2022-05-15 02:10] LABS: Hemoglobin 9.6 g/dl (12.0-16.0); PLT ABN DIST 1; Red Cell Distribution Width 14.7 % (11.0-16.0)
[2022-05-15 02:11] LABS: Hematocrit 28.4 % (37.0-47.0); Mean Corpuscular HGB Conc 33.8 g/dl (31.0-35.0); Mean Corpuscular Hemoglobin 31.4 pg (27.0-33.0); Mean Corpuscular Volume 92.8 fL (80.0-98.0); Mean Platelet Volume 12.9 fL (9.4-12.3); Platelet Count 112 X10*3/uL (160-400); Red Blood Count 3.06 X10*6/uL (4.20-5.50); WBC ABN SCTR FOR CBC 1
[2022-05-15 02:22] LABS: Lactic Acid 1.3 mmol/L (0.5-2.0)
[2022-05-15 02:27] LABS: Alanine Aminotransferase 24 U/L (0-31); Albumin Level 2.4 g/dL (3.5-5.0); Alkaline Phosphatase 48 U/L (39-117); Anion Gap 10 (12-20); Aspartate Amino Transferase 17 U/L (5-31); Bilirubin Total 0.6 mg/dL (0.0-1.0); Blood Urea Nitrogen 19 mg/dL (9-16); Calcium 8.1 mg/dL (8.4-10.2); Carbon Dioxide 25 mmol/L (22-29); Chloride 109 mmol/L (96-108); Creatinine Clr Calc Pharmacy 36.4; Estimated Glomerular Filt Rate > 60; Glucose Random 104 mg/dL (60-115); Potassium 4.3 mmol/L (3.3-5.1); Sodium 140 mmol/L (135-145); Total Protein 4.4 g/dL (6.5-8.0)
[2022-05-15 02:31] LABS: B Type Natriuretic Peptide 51 pg/mL (<100)
[2022-05-15 02:34] LABS: Atypical Lymph Absolute Manual 0.1 x10*3/uL; Atypical Lymphs Percent Manual 1 % (0-6); Lymphocytes Absolute Manual 0.7 X10*3/uL (1.2-4.9); Lymphocytes Percent Manual 12 % (20-40); Monocytes Absolute Manual 0.3 X10*3/uL (0.1-1.2); Monocytes Percent Manual 5 % (2-11); Neutrophils Percent Manual 82 % (45-73); RBC Morphology NORMAL
[2022-05-15 02:35] LABS: Platelet Estimate SLIGHTLY DECREASED (NORMAL); Platelet Morphology Comment NORMAL; Toxic Vacuolation PRESENT
[2022-05-15 02:48] LABS: Band Neutrophils Percent 0 % (3-5); Neutrophils Absolute Manual 4.9 X10*3/uL (2.0-8.3)
[2022-05-15] MEDS: Heparin Sodium,Porcine 5,000 UNIT/ML VIAL 5000 UNIT SUBCUT ×2 (05:08→17:12)
[2022-05-15 07:01] LABS: Alanine Aminotransferase 23 U/L (0-31); Albumin Level 2.4 g/dL (3.5-5.0); Alkaline Phosphatase 47 U/L (39-117); Anion Gap 10 (12-20); Aspartate Amino Transferase 17 U/L (5-31); Bilirubin Total 0.6 mg/dL (0.0-1.0); Blood Urea Nitrogen 16 mg/dL (9-16); Calcium 7.8 mg/dL (8.4-10.2); Carbon Dioxide 23 mmol/L (22-29); Chloride 110 mmol/L (96-108); Creatinine Clr Calc Pharmacy 38.2; Estimated Glomerular Filt Rate > 60; Glucose Random 93 mg/dL (60-115); Potassium 4.1 mmol/L (3.3-5.1); Sodium 139 mmol/L (135-145); Total Protein 4.3 g/dL (6.5-8.0)
--- NOTE | 2022-05-15 07:16 | MHC.CM.ED ---
Received notification patient was admitted to hospital overnight. [facility] [place] made aware. Continue to monitor for d/c needs.
[2022-05-15] MEDS: HaloperidoL 1 MG TABLET PO ×3 (08:09→20:03)
[2022-05-15] MEDS: 0.9 % Sodium Chloride Flush 3 ML SYRINGE IVFLUSH ×2 (08:09→17:13)
[2022-05-15] MEDS: lisinopriL 40 MG TABLET PO (08:09)
[2022-05-15] MEDS: amLODIPine Besylate 5 MG TABLET PO (08:09)
[2022-05-15] MEDS: atenoloL 50 MG TABLET PO (08:09)
--- NOTE | 2022-05-15 12:26 | MHC.CLN ---
NUTRITION REGULAR DIET. ADDING ENSURE TID TO PROVIDE ADDITIONAL 1050 KCALS, 60 G PROTEIN. QUALIFIES SEVERELY MALNOURISHED. 25% WEIGHT LOSS X ONE MONTH. SEVERE DEPLETION OF BODY FAT AND MUSCLE MASS. SEE CLINICAL NUTRITION ASSESSMENT 05/15/22. FOLLOW FOR INTAKE AND WEIGHT.
--- NOTE | 2022-05-15 13:19 | MHC.CM.PN ---
IMM DELIVERED. PT LIVESWITH DAUGHTER AND S/O. HAS [facility]. PT HAS A WALKER BUT ADMITS SHE FURNITURE SURFS WHEN HOME. HAS MODIFIED EQUIPMENT IN BR. + HCP ON FILE + COVID VAX X1. PCP DR. JÚNIOR WAITE AT [facility]. PT IS DECLINING STR IS HER DAUGHTER PETERSON DESPITE P.T. RECOMMENDATIONS. CM SPOKE WITH DAUGHTER WHO IS ABLE TO CARE FOR HER MOTHER AT HOME AND DOES NOT WANT HER GOING TO REHAB ON DC. DP: HOME WITH RESUMPTION OF [facility] AND FAMILY SUPPORT. PT AND HCP/DAUGHTER DECLINING STR AT THIS TIME. BLS TRANSPORT HOME.
--- NOTE | 2022-05-15 17:36 | PM.EVENT ---
Event Note Date of Service: 05/15/22 Event Note: seen and examined this morning follow up for UTI seen and examined, awake and alert no abdominal pain, some pelvic pressure, no nausea or vomiting UTI continue ceftriaxone follow urine culture, blood culture HTN bp soft hold home meds follow BP closely thrombocytopenia chronic remaining per admission H&P Time Spent With Patient Time: Total time managing care of this patient today ____ minutes.
[2022-05-15] MEDS: Atorvastatin Calcium 10 MG TABLET PO (20:03)
[2022-05-15] MEDS: traZODone HCL 50 MG TABLET PO (20:03)
[2022-05-16 03:37] VITALS: BP 143/68; PULSE 72; RESP 16; TEMP 37.2; O2SAT 96
[2022-05-16 06:28] LABS: Hematocrit 29.9 % (37.0-47.0); Mean Corpuscular HGB Conc 33.4 g/dl (31.0-35.0); Mean Corpuscular Volume 92.6 fL (80.0-98.0); Mean Platelet Volume 13.1 fL (9.4-12.3); Platelet Count 138 X10*3/uL (160-400); Red Blood Count 3.23 X10*6/uL (4.20-5.50); Red Cell Distribution Width 14.7 % (11.0-16.0); White Blood Count 4.5 X10*3/uL (4.8-10.8)
[2022-05-16] MEDS: Heparin Sodium,Porcine 5,000 UNIT/ML VIAL 5000 UNIT SUBCUT ×2 (06:30→16:47)
[2022-05-16] MEDS: HaloperidoL 1 MG TABLET PO ×3 (07:44→20:44)
[2022-05-16 08:00] VITALS: BP 145/67; PULSE 70; RESP 20; TEMP 36.3; O2SAT 96
[2022-05-16 11:27] VITALS: BP 119/58; PULSE 77; RESP 20; TEMP 37.1; O2SAT 95
--- NOTE | 2022-05-16 11:34 | MHC.CLN ---
NUTRITION DIET=REGULAR DIET WITH ENSURE TID. SUPPLEMENT PROVIDES ADDITIONAL 1050 KCALS, 60 G PROTEIN. QUALIFIES SEVERELY MALNOURISHED. CURRENT INTAKE POOR. ENCOURAGE PO INTAKE ABLE.
--- NOTE | 2022-05-16 12:15 | P.CONOP_ITS ---
History of Present Illness HPI Consult date: 05/16/22 Chief complaint: UTI Narrative: 87-year-old female with a past medical history of hypertension, dementia with psychotic disturbance, history of UTIs; presented to the hospital initially on 05/12/2022 with a chief complaint of bilateral wrist pain; reportedly the patient has visiting nurse noted that her bilateral wrists werel slightly swollen; patient was sent to the ER for further evaluation.? Patient initially had negative workup, x-rays of the wrist were significant of OA; no obvious signs of infection noted. ER team noted that patient had urinalysis consistent with UTI.? Patient was given ceftriaxone in the ER which patient tolerated well.? Admitted to the hospital for UTI.? Orthopedics was consulted wrist pain. Review of Systems Review of Systems: per [facility] Past Medical History Medical History Dementia with psychotic disturbance Social History Social History Household Members: Children Household Members Other:: Lives with daughter and platonic male friend. Housing: House Do you presently have visiting nurse or other home services: No Alcohol intake: never Patient Tobacco Use Status: Never used Tobacco Tobacco use type: Cigarette Cigarette Packs Per Day: 1 Cigarettes Per Day: 15 Years Smoked: Many. I stopped 17 years before I started again. Smoked in Last 30 Days: No Second Hand Smoke Exposure: Yes ( Didier, but doesn't smoke like I do. ) Use of substances other than those prescribed or required for medical reasons: No Currently Displaying Signs/Symptoms of Drug Intoxication Withdrawal: No Have you been hit, kicked, punched, or otherwise hurt by someone within the past year? If so, by whom?: No Do you feel safe in your current relationship?: No Current Relationship Is there a partner from a previous relationship who is making you feel unsafe now?: No Are you made to feel afraid or neglected: No Advance Directives: Yes Advance Directives on File: Yes Advance Directives Date on File: 04/16/22 Do you have thoughts of harming others: None Do you have a plan to hurt others: No Plan Recently lost weight without trying: No Eating poorly because of decreased appetite: No Nutrition Risks: No Nutritional Risk Patient : No Poor oral hygiene: No service: No Current occupational status: retired [employer] Allergies Allergy/AdvReac Type Severity Reaction Status Date / Time Penicillins [PENICILLINS] Allergy Mild RASH Verified 05/12/22 16:20 Active Medications: Current Medications Acetaminophen (Acetaminophen 325 Mg Tablet) 650 mg PO Q6H PRN PRN Reason: Pain, Mild (Pain Scale 1-3) Albuterol Sulfate (Albuterol Sulfate 90 Mcg 8 Gm Inhaler) 2 puff INHALE Q6H PRN PRN Reason: wheezing Atorvastatin Calcium (Atorvastatin Calcium 10 Mg Tablet) 10 mg PO BEDTIME [facility] Last Admin: 05/15/22 20:03 Dose: 10 mg Benzonatate (Benzonatate 100 Mg Capsule) 100 mg PO TID PRN PRN Reason: Cough Haloperidol (Haloperidol 1 Mg Tablet) 1 mg PO TID [facility] Last Admin: 05/16/22 07:44 Dose: 1 mg Heparin Sodium (Porcine) (Heparin Sodium,Porcine 5,000 Unit/Ml Vial) 5,000 unit SUBCUT Q12H [facility] Last Admin: 05/16/22 06:30 Dose: 5,000 unit Ceftriaxone Sodium 1 gm/ (Sodium Chloride) 50 mls @ 100 mls/hr IV Q24H [facility] Last Admin: 05/16/22 01:16 Dose: Not Given Lorazepam (Lorazepam 0.5 Mg Tablet) 0.5 mg PO Q6H PRN PRN Reason: anxiety Melatonin (Melatonin 3 Mg Tablet) 6 mg PO BEDTIME PRN PRN Reason: Insomnia Senna (Sennosides 8.6 Mg Tablet) 17.2 mg PO BEDTIME PRN PRN Reason: Constipation Sodium Chloride (0.9 % Sodium Chloride Flush 3 Ml Syringe) 3 ml IVFLUSH QSHIFT [facility] Last Admin: 05/16/22 07:41 Dose: Not Given Trazodone HCl (Trazodone Hcl 50 Mg Tablet) 50 mg PO BEDTIME [facility] Last Admin: 05/15/22 20:03 Dose: 50 mg Home Medications Medication Instructions Recorded Confirmed Last Taken Type amlodipine 5 mg tablet 1 tab PO DAILY 05/14/22 05/14/22 Unknown History atenolol 25 mg tablet 2 tab PO DAILY 05/14/22 05/14/22 Unknown History clonidine HCl 0.1 mg tablet 1 tab PO BEDTIME 05/14/22 05/14/22 Unknown History haloperidol 1 mg tablet 1 tab PO TID 05/14/22 05/14/22 Unknown History lisinopril 40 mg tablet 1 tab PO BID 05/14/22 05/14/22 Unknown History lorazepam 0.5 mg tablet 1 tab PO Q6H PRN anxiety 05/14/22 05/14/22 Unknown History lorazepam 1 mg tablet 1 tab PO Q8H PRN anxiety 05/14/22 05/14/22 Unknown History simvastatin 20 mg tablet 1 tab PO BEDTIME 05/14/22 05/14/22 Unknown History trazodone 50 mg tablet 1 tab PO BEDTIME 05/14/22 05/14/22 Unknown History Physical Exam Vital Signs: Vital Signs: Last Vital Signs Temp 98.7 F 05/16/22 11:27 Pulse 77 05/16/22 11:27 Resp 20 05/16/22 11:27 BP 119/58 L 05/16/22 11:27 Pulse Ox 95 05/16/22 11:27 O2 Del Method 05/16/22 11:27 BMI result Body Mass Index 14.0 Const: General: cooperative, healthy appearing, comfortable and no acute distress Extrem: Other: bilat wrist normal to inspection, no redness or swelling. No pain with ROM. She has mild discomfort through the radiocarpal joint. No pain with acial loading. NVI. Results Labs 05/16/22 06:10 05/15/22 06:13 Labs: Abnormal lab results 05/16/22 Range/Units 06:10 WBC 4.5 L (4.8-10.8) X10*3/uL RBC 3.23 L (4.20-5.50) X10*6/uL Hgb 10.0 L (12.0-16.0) g/dl Hct 29.9 L (37.0-47.0) % Plt Count 138 L (160-400) X10*3/uL MPV 13.1 H (9.4-12.3) fL H & H 05/12/22 05/15/22 05/16/22 Range/Units 16:58 01:58 06:10 Hgb 11.8 L 9.6 L 10.0 L (12.0-16.0) g/dl Hct 34.9 L 28.4 L 29.9 L (37.0-47.0) % All other labs normal. Diagnostic results Wrist/Hand x-ray: image reviewed (05/12/22 IMPRESSION: 1. No acute abnormality. 2. Degenerative joint disease of the wrist. 3. Osteopenia.) Assessment and Plan (1) Osteoarthritis of wrists, bilateral: Status: Acute Plan No evidence of infection at this time in the absence of pain with ROM, no swelling or redness -recommend symptomatic treatment for OA: tylenol and NSAIDS -ROM to tolerance Time Spent With Patient Time: Total time managing care of this patient today ____ minutes. Procedures Date of Service Date of Service: 05/16/22
--- NOTE | 2022-05-16 14:07 | HO.PM.IMPN ---
Subjective Subjective Date of Service: 05/16/22 Interval History: seen and examined this morning follow up for UTI no overnight events, slept well pelvic pressure resolved. Review of Systems Review of Systems: Yes all other systems are reviewed and are negative Constitutional Constitutional: Denies chills and Denies fever(s) Cardiovascular Cardiovascular: Denies chest pain, Denies palpitations and Denies dyspnea Respiratory Respiratory: Denies cough and Denies dyspnea Gastrointestinal Gastrointestinal: Denies abdominal pain, Denies nausea and Denies vomiting Endocrine Endocrine: Denies palpitations Physical Exam Vital Signs: Vital Signs: Last Vital Signs Temp 98.7 F 05/16/22 11:27 Pulse 77 05/16/22 11:27 Resp 20 05/16/22 11:27 BP 119/58 L 05/16/22 11:27 Pulse Ox 95 05/16/22 11:27 O2 Del Method 05/16/22 11:27 BMI result Body Mass Index 14.0 Const: General: cooperative, comfortable, no acute distress, alert and awake Nutritional Appearance: thin Resp: Effort & Inspection: normal respiratory effort and able to speak in complete sentences Cardio: Rate: regular rate Heart sounds: S1 normal heart sound present and S2 normal heart sound present GI: Inspection: No distended Palpation (GI): Soft to palpation and nontender Neuro: Other: no focal deficits Extrem: General: Yes no pedal edema Objective Data Active Medications Acetaminophen (Acetaminophen 325 Mg Tablet) 650 mg PO Q6H PRN PRN Reason: Pain, Mild (Pain Scale 1-3) Albuterol Sulfate (Albuterol Sulfate 90 Mcg 8 Gm Inhaler) 2 puff INHALE Q6H PRN PRN Reason: wheezing Atorvastatin Calcium (Atorvastatin Calcium 10 Mg Tablet) 10 mg PO BEDTIME [facility] Last Admin: 05/15/22 20:03 Dose: 10 mg Documented By: ELISSA Benzonatate (Benzonatate 100 Mg Capsule) 100 mg PO TID PRN PRN Reason: Cough Haloperidol (Haloperidol 1 Mg Tablet) 1 mg PO TID [facility] Last Admin: 05/16/22 07:44 Dose: 1 mg Documented By: ELEANOR Heparin Sodium (Porcine) (Heparin Sodium,Porcine 5,000 Unit/Ml Vial) 5,000 unit SUBCUT Q12H [facility] Last Admin: 05/16/22 06:30 Dose: 5,000 unit Documented By: ELISSA Ceftriaxone Sodium 1 gm/ (Sodium Chloride) 50 mls @ 100 mls/hr IV Q24H [facility] Last Admin: 05/16/22 01:16 Dose: Not Given Documented By: ELISSA Non-Admin Reason: ni iv access md saul Lorazepam (Lorazepam 0.5 Mg Tablet) 0.5 mg PO Q6H PRN PRN Reason: anxiety Melatonin (Melatonin 3 Mg Tablet) 6 mg PO BEDTIME PRN PRN Reason: Insomnia Senna (Sennosides 8.6 Mg Tablet) 17.2 mg PO BEDTIME PRN PRN Reason: Constipation Sodium Chloride (0.9 % Sodium Chloride Flush 3 Ml Syringe) 3 ml IVFLUSH QSHIFT [facility] Last Admin: 05/16/22 07:41 Dose: Not Given Documented By: ELEANOR Non-Admin Reason: No Access Trazodone HCl (Trazodone Hcl 50 Mg Tablet) 50 mg PO BEDTIME [facility] Last Admin: 05/15/22 20:03 Dose: 50 mg Documented By: ELISSA Labs 05/16/22 06:10 05/15/22 06:13 Labs: Laboratory Results - last 24 hr 05/16/22 06:10 MCV 92.6 MCH 31.0 MCHC 33.4 RDW 14.7 Plt Count 138 L MPV 13.1 H Absolute Nucleated RBC 0.000 Nucleated RBC % (auto) 0.0 Microbiology Microbiology Results: Microbiology 05/14/22 Unknown Urine Culture - Preliminary Urine clean catch - Urine gonzalez top Gram negative judith 05/15/22 06:13 Blood Culture - Preliminary Blood - Venous No growth after 24 hours. 05/15/22 01:58 Blood Culture - Preliminary Blood - Venous No growth after 24 hours. Assessment and Plan (1) Moderate malnutrition: Status: Acute (2) UTI (urinary tract infection): Status: Acute Plan This is an 87-year-old female with a past medical history of hypertension, dementia with psychotic disturbance, history of UTIs; presented to the hospital initially on 05/12/2022 with a chief complaint of bilateral wrist pain; reportedly the patient has visiting nurse noted that her bilateral wrists were swollen, initially kept in the ED for placement given workup was negative for wrist pain.? Later patient became slightly hypotensive presumed in the setting of medication use; but urinalysis was abnormal consistent with UTI.? Admitted for further management.? UTI: urine culture growing GNR Continue ceftriaxone follow final culture results wrist pain Seems to be improved imaging negative seen by ortho - no further workup required Symptomatic support HTN bp low, bp meds had been stopped on previous admission, likely r/t taking meds - no sepsis bp meds d/c mood continue baseline meds DVT ppx - heparin attending - Dr. Dilia Cifuentes. PT recommend short-term rehab, patient declined and wishes to return home. Time Spent With Patient Time: Total time managing care of this patient today ____ minutes. Quality Stroke Does the patient have a stroke diagnosis?: No VTE Prior VTE?: No VTE Risk Level:: Medical - moderate - high VTE Device Contraindication: Treatment Not Indicated VTE Drug Contraindication: N/A - Med Ordered
--- NOTE | 2022-05-16 15:01 | MHC.CM.PN ---
IMM 05/16/22 Per MD rounds discharge pending final cultures. DP home with resumption of home services provided by [facility]. She will transport via BLS.
[2022-05-16 15:04] VITALS: BP 154/76; PULSE 84; RESP 20; TEMP 36.8; O2SAT 96
[2022-05-16 19:04] VITALS: BP 160/74; PULSE 87; RESP 20; TEMP 36.9; O2SAT 96
[2022-05-16] MEDS: traZODone HCL 50 MG TABLET PO (20:44)
[2022-05-16] MEDS: Atorvastatin Calcium 10 MG TABLET PO (20:45)
[2022-05-16] MEDS: 0.9 % Sodium Chloride Flush 3 ML SYRINGE IVFLUSH (20:45)
[2022-05-16] MEDS: Acetaminophen 325 MG TABLET 650 MG PO (20:47)
[2022-05-16 23:52] VITALS: BP 139/64; PULSE 67; RESP 18; TEMP 36.8; O2SAT 97
[2022-05-17 04:00] VITALS: BP 126/66; PULSE 64; RESP 18; TEMP 36.8; O2SAT 95
[2022-05-17] MEDS: Heparin Sodium,Porcine 5,000 UNIT/ML VIAL 5000 UNIT SUBCUT (05:10)
[2022-05-17 07:52] VITALS: BP 136/70; PULSE 82; RESP 12; TEMP 37; O2SAT 94
[2022-05-17] MEDS: HaloperidoL 1 MG TABLET PO (08:02)
--- NOTE | 2022-05-17 10:37 | P.DS_ITS ---
DS: Providers Provider Date of Service: 05/17/22 Date of admission: 05/15/22 00:19 Date of discharge: 05/17/22 Primary care physician: Tong Garcia III, MD Consults: 05/15/22 00:18 Consult to Orthopedics Routine Consulting Provider: [facility] Reason for consultation: b/l wris tpain and swelling Attending physician on discharge: Tc Corona Discharging clinician: Kay Antoine DS: Diagnosis Discharge Diagnosis (1) Moderate malnutrition: Status: Acute (2) UTI (urinary tract infection): Status: Acute DS: Summary Hospital Course Hospital Course: From H&P on day of admission 87-year-old female with a past medical history of hypertension, dementia with psychotic disturbance, history of UTIs; presented to the hospital initially on 05/12/2022 with a chief complaint of bilateral wrist pain; reportedly the patient has visiting nurse noted that her bilateral wrists social slightly swollen; patient was sent to the ER for further evaluation.? Patient initially had negative workup, x-rays of the wrist were negative; no obvious signs of infection noted; patient has been kept in the ER for placement.? Today when the RN was doing routine vitals patient blood pressure was noted to be on the lower side; prior to the episode patient was given Haldol, trazodone, lisinopril; ER team noted that patient has urine appears cloudy; urinalysis was abnormal consistent with UTI.? Patient was given ceftriaxone in the ER which patient tolerated well.? Admitted to the hospital for UTI.? Patient is alert and awake, denies any complaints.? Denies any chest pain palpitations lightheadedness and dizziness. Review of all other systems is negative. UTI: urine culture growing e.coli. Brie treated with IV ceftriaxone will be transition to oral Ceftin on discharge. Blood cultures have remained negative to date. she has remained afebrile with no leukocytosis. wrist pain. Seems to be resolved at this point. imaging negative, no evidence of infection. seen by ortho - no further workup required- likely osteoarthritis. Symptomatic support HTN blood pressure was low in the ED, bp meds had been stopped on previous admission. no evidence of sepsis. BP controlled without BP meds. Can follow up with PCP for close blood pressure monitoring. Patient was evaluated by Physical therapy who recommended short-term rehab. Patient and her daughter Karo decline rehab and prefer to take the patient home. Home physical therapy and visiting nurses will be arranged Time Spent with Patient Time attestation: Total time managing care of this patient today ____ minutes. Discharge coordination time: Greater than 30 minutes Quality: Safe Use of Opioids Does Pt have an Active Cancer Diagnosis on the Problem List?: No Quality: Stroke Does the patient have a stroke diagnosis?: No Physical Exam Vital Signs: Vital Signs: Last Vital Signs Temp 98.6 F 05/17/22 07:52 Pulse 82 05/17/22 07:52 Resp 12 05/17/22 07:52 BP 136/70 05/17/22 07:52 Pulse Ox 94 05/17/22 07:52 O2 Del Method 05/17/22 07:52 BMI result Body Mass Index 14.0 Const: General: cooperative, comfortable, no acute distress, alert and awake Nutritional Appearance: thin Resp: Effort & Inspection: normal respiratory effort and able to speak in complete sentences Cardio: Rate: regular rate Heart sounds: S1 normal heart sound present and S2 normal heart sound present GI: Inspection: No distended Palpation (GI): Soft to palpation and nontender Neuro: Other: no focal deficits Extrem: General: Yes no pedal edema DS: Data Data Completed and Pending Labs on day of discharge: Preliminary micro results at discharge 05/15/22 06:13 Blood Culture - Preliminary Blood - Venous No growth after 48 hours. 05/15/22 01:58 Blood Culture - Preliminary Blood - Venous No growth after 48 hours. 05/12/22 16:58 Blood Culture - Preliminary Blood - Venous No growth after 48 hours. 05/12/22 16:58 Blood Culture - Preliminary Blood - Venous No growth after 48 hours. Discharge Plan Discharge Anticipated Discharge Date/Time: 05/17/22 10:36 Patient Disposition: Home Health Service Discharge Diagnosis: UTI Referrals: Tong Garcia III, MD [Primary Care Provider] - 1 Week Discharge Medications: New cefuroxime axetil 250 mg Tablet 250 mg PO Q12H 4 Days Qty: 8 0RF Continued trazodone 50 mg tablet 1 tab PO BEDTIME haloperidol 1 mg tablet 1 tab PO TID lorazepam 0.5 mg tablet 1 tab PO Q6H PRN (Reason: anxiety) simvastatin 20 mg tablet 1 tab PO BEDTIME albuterol sulfate 90 mcg/actuation HFA aerosol inhaler 2 puff inhalation Q6H PRN (Reason: wheezing) Qty: 1 0RF Discontinued clonidine HCl 0.1 mg tablet 1 tab PO BEDTIME atenolol 25 mg tablet 2 tab PO DAILY amlodipine 5 mg tablet 1 tab PO DAILY lorazepam 1 mg tablet 1 tab PO Q8H PRN (Reason: anxiety) lisinopril 40 mg tablet 1 tab PO BID Discharge Orders: Discharge Order (Routine); Ordered 05/17/22 Ordered By: Kay Antoine Activity on Discharge: As tolerated Stand Alone Forms: Patient Portal Discharge page Care Plan Goals: See below Health Concerns: UTI osteoarthritis Plan of Treatment: complete course of antibiotics as prescribed or UTI Blood pressure medication were stopped on last admission - do not take as your blood pressure has been controlled without them call to schedule follow up with PCP it was recommended to go [facility] discharge but you have elected to return home - you will resume Visiting nursing and physical therapy services Assessment: See discharge summary Patient Instructions: Arthritis (ED) Discharge Date/Time: 05/17/22 14:11
[2022-05-17 11:27] VITALS: BP 140/60; PULSE 70; RESP 16; TEMP 36.8; O2SAT 94
--- NOTE | 2022-05-17 11:45 | MHC.CM.PN ---
order for home with resumption of [facility]. This RNCM notified [facility] (previous [facility] who already accepted to return of services) that patient was returning home today.
--- NOTE | 2022-05-17 12:44 | MHC.CM.PN ---
Spoke with Didier Boyer; he indicates he is picking patient up from the hospital, he states he has no idea why the patient is saying she is supposed to go home in an ambulance (he thinks because she came to [facility] in one). He confirms he is able to get her in and out of the house with the WC they have at home and that he is functionally sound to do so; this RNCM inquired a few times. He states he drives her where she needs to go and that she was not walking at home prior to this hospital admission. He will be bringing her a shirt to wear home (he says she has pants with her in [facility]), as well as bringing her, her new winter coat to wear home. He also confirms he has the functional ability to transfer her in to his car from the at [facility] for D/C. CM messaged nurse to report findings.
== END 2022-05-17 14:11 | disposition home health service (06) | DRG 690 ==
LOC: HO.ED 05-14 14:23 → HO.EDOVER 05-15 01:20 → HO.IMC 05-15 01:36
PROVIDERS: Physician Assistant; Admitting Provider Hospitalist; Emergency Provider Emergency Medicine; PCP Internal Medicine; Visit Provider Physician Assistant Medical
DX: N39.0 Urinary tract infection, site not specified (principal); F03.92 Unspecified dementia, unspecified severity, with psychotic disturbance; E44.0 Moderate protein-calorie malnutrition; Z68.1 Body mass index [BMI] 19.9 or less, adult; M19.032 Primary osteoarthritis, left wrist; B96.20 Unspecified Escherichia coli [E. coli] as the cause of diseases classified elsewhere; M19.031 Primary osteoarthritis, right wrist; F17.210 Nicotine dependence, cigarettes, uncomplicated; Z20.822 Contact with and (suspected) exposure to COVID-19; Z87.440 Personal history of urinary (tract) infections; Z88.0 Allergy status to penicillin; Z79.899 Other long term (current) drug therapy
CPT/HCPCS: 0241U; 36415; 73100; 80048; 80053; 80076; 81001; 83605; 83880; 84550; 85007; 85025; 85027; 85652; 86140; 87040; 87086; 87088; 87186; 87635; 97110; 97116; 97162; 99222; 99285; J0696; J1643